=== PATIENT | female | born 1955 | race Caucasian/White ===

== ENCOUNTER 2017-12-01 16:41 | Observation (INO) | payer BC ==
--- OUTSIDE RECORDS SUMMARY | 2017-12-01 17:03 | XMS REPORT | Clinical Summary ---
:1955 Author Organization [facility] Address [address] [place] [address] Phone Care Team Providers Name Role Phone Unavailable Primary Care Provider Unavailable Allergies No Known Allergies Current Medications Prescription Sig. Disp. Refills Start Date End Date Status levothyroxine Take 75 mcg by mouth Active (SYNTHROID, daily. LEVOTHROID) 75 MCG tablet losartan-hydrochloroth Take 1 tablet by mouth Active iazide (HYZAAR) 100-25 daily. mg per tablet gabapentin (NEURONTIN) Take 300 mg by mouth 2 Active 300 MG capsule (two) times daily. esomeprazole (NEXIUM) Take 20 mg by mouth Active 20 MG capsule daily. simvastatin (ZOCOR) 40 Take 40 mg by mouth Active MG tablet nightly. amitriptyline (ELAVIL) Take 50 mg by mouth Active 50 MG tablet nightly. octreotide Inject 1 mL (100 mcg 0 01/24/2015 Active (SANDOSTATIN) 100 total) subcutaneously mcg/mL Soln 3 (three) times daily. ferrous sulfate 325 . 04/11/2017 Active (65 FE) MG tablet potassium chloride SA . 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 05/20/2017 [facility], Breast microcalcifications Encounter Bulmaro Cadena 05/20/2017 [facility], Breast microcalcifications Encounter Bulmaro Cadena 05/20/2017 [facility], Mammographic Encounter Bulmaro Cadena microcalcification 05/19/2017 Outside Orders Central Scheduling [facility], Breast microcalcifications Bulmaro Cadena (Primary Dx);Disproportion of reconstructed breast;Mammographic microcalcification after 11/30/2016 Family History Medical History Relation Name Comments Diabetes Father Hypertension Father Diabetes Mother Hypertension Mother Relation Name Status Comments Father Mother Social History Tobacco Use Types Packs/Day Years Used Date Former Smoker Cigarettes 1 25 Quit: 08/31/2005 Smokeless Tobacco: Former User Tobacco Cessation: Counseling Given: No Alcohol Use Drinks/Week oz/Week Comments No Sex Assigned at Date Recorded Not on file Last Filed Vital Signs Vital Sign Reading Time Taken Blood Pressure 151/74 05/20/2017 12:00 PM REED FIXER Pulse 85 05/20/2017 12:00 PM REED FIXER Temperature 36.7 C (98 F) 05/20/2017 12:00 PM REED FIXER Respiratory Rate 16 05/20/2017 12:00 PM REED FIXER Oxygen Saturation 98% 05/20/2017 12:00 PM REED FIXER Inhaled Oxygen Concentration - - Weight 95.3 kg (210 lb) 05/20/2017 9:00 AM REED FIXER Height 160 cm (5' 3") 05/20/2017 9:00 AM REED FIXER Body Mass Index 37.2 05/20/2017 9:00 AM REED FIXER Plan of Treatment Not on file Results Tissue Exam (05/20/2017 4:40 PM) Component Value Ref Range Case Report Surgical Pathology Report Case: [id number] Authorizing Provider:Olivier Tapia MDCollected: 05/20/2017 1640 [facility]2017 1629 Pathologist: Sabi Zuñiga MD Specimens: A) - Breast, Right, RIGHT 6 O'CLOCK BREAST CALIFICATIONS B) - Breast, Left Upper Outer, LEFT UPPER OUTER BREAST MAN WITH CALIFICATIONS DIAGNOSIS A. 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 BREAST, LEFT, UPPER OUTER QUADRANT MASS WITH CALCIFICATION, STEREOTACTIC BIOPSY: - APOCRINE METAPLASIA - COLUMNAR CELL CHANGES - USUAL DUCTAL HYPERPLASIA - SCLEROSING ADENOSIS - BENIGN BREAST TISSUE WITH ASSOCIATED CALCIFICATIONS Signing Pathologist Direct Phone Line: [phone] COMMENT Multiple levels (32 levels) have been performed to evaluate the biopsies. In the sections examined from both specimens, no carcinoma is identified. CPT Code(s) 82452 X2 CLINICAL HISTORY Right 6 o'clock breast calcifications, left upper breast mass with calcifications SPECIMEN SOURCE A. Right 6 o'clock breast calcifications biopsy. B. Left upper outer breast mass with calcifications biopsy GROSS DESCRIPTION The specimen is received in two containers all labeled with the patient's information and "site". Specimen A: Received in formalin labeled "right 6 o'clock breast calcifications" are multiple chew-white to yellow-rivera cores of soft tissue ranging in length from 0.6 cm to 2.0 cm. The specimen is inked blue and entirely submitted in cassettes A1-A2. Specimen B: Received in formalin labeled "left upper outer breast mass with calcifications" are multiple chew-white to yellow-rivera cores of soft tissue ranging in length from 0.3 cm to 2.0 cm. The specim en is inked blue and entirely submitted in cassettes B1-B2. DB/ew MICROSCOPIC DESCRIPTION A-B. Performed. Specimen Performing Laboratory Tissue - Breast, Left Upper Outer [address] [address] MM Stereotactic breast biopsy left (05/20/2017 12:30 PM) Specimen Performing Laboratory [facility] Narrative Addendum Begins AMENDMENT: 06/02/2017 Olivier Tapia M.D. Pathology results are now available and demonstrate sclerosing adenosis. This is concordant with the imaging findings. Addendum Ends #[id number] - MM, STEREOTACTIC BIOPSY, BREAST, LEFT STEREOTACTIC GUIDED BIOPSY LEFT BREAST WITH MARKING DEVICE INSERTED AND POST DIGITAL MAMMOGRAPHIC IMAGING AND RADIOGRAPHIC SPECIMEN IMAGIN05/20/2017 PATIENT CONSENT: The procedure, risks, benefits and alternatives were discussed with the patient. Informed consent was obtained. A stereotactic guided biopsy was performed for the asymmetry with calcifications located in the left breast at 1 o'clock middle to posterior depth.The skin was prepped in the usual manner.Local anesthetic was administered to the access site.A skin bravo was made in the breast.The abnormality was approached from the craniocaudal aspect using a prone table.A 9 gauge biopsy needle was placed adjacent to the abnormality under computer guidance and confirmatory stereotactic mammography images were obtained to document needle placement.Once the needle was documented to be in the correct location, multiple specimens were obtained using [employer] device. A clip was inserted into the biopsy cavity.Post procedure digital mammographic imaging demonstrates the clip at the targeted area.The specimens were sent to the laboratory for pathological analysis. IMPRESSION: STEREOTACTIC GUIDED BIOPSY Stereotactic guided biopsy of the asymmetry in the left breast at 1 o'clock middle to posterior depth was successful with no apparent post procedure complications.The imaged specimens include the calcification. Olivier Tapia M.D. pth/:05/20/2017 14:16:43 Attending Technologist: Marisol Ayala RT(R)(M), [facility] Note Specialist: Geovanna Garcia RT(R)(M), [facility] [id number] Procedure Note Interface, External Ris In - 06/02/2017 3:12 PM CDT Addendum Begins AMENDMENT: 06/02/2017 Olivier Tapia M.D. Pathology results are now available and demonstrate sclerosing adenosis. This is concordant with the imaging findings. Addendum Ends #[id number] - MM, STEREOTACTIC BIOPSY, BREAST, LEFT STEREOTACTIC GUIDED BIOPSY LEFT BREAST WITH MARKING DEVICE INSERTED AND POST DIGITAL MAMMOGRAPHIC IMAGING AND RADIOGRAPHIC SPECIMEN IMAGIN05/20/2017 PATIENT CONSENT: The procedure, risks, benefits and alternatives were discussed with the patient. Informed consent was obtained. A stereotactic guided biopsy was performed for the asymmetry with calcifications located in the left breast at 1 o'clock middle to posterior depth. The skin was prepped in the usual manner. Local anesthetic was administered to the access site. A skin bravo was made in the breast. The abnormality was approached from the craniocaudal aspect using a prone table. A 9 gauge biopsy needle was placed adjacent to the abnormality under computer guidance and confirmatory stereotactic mammography images were obtained to document needle placement. Once the needle was documented to be in the correct location, multiple specimens were obtained using [employer] EVIVA device. A clip was inserted into the biopsy cavity. Post procedure digital mammographic imaging demonstrates the clip at the targeted area. The specimens were sent to the laboratory for pathological analysis. IMPRESSION: STEREOTACTIC GUIDED BIOPSY Stereotactic guided biopsy of the asymmetry in the left breast at 1 o'clock middle to posterior depth was successful with no apparent post procedure complications. The imaged specimens include the calcification. Olivier Tapia M.D. pth/:05/20/2017 14:16:43 Attending Technologist: Marisol BELLE(R)(M), [facility] Note Specialist: Geovanna BELLE(R)(M), [facility] [id number] Breast Specimen Radiograph Left (05/20/2017 12:30 PM) Specimen Performing Laboratory [facility] Narrative #[id number] - MM, MAMMO, SPECIMEN, RADIOGRAPH, LEFT SPECIMEN LEFT BREAST: 05/20/2017 Multiple stereotactic guided biopsy specimens were imaged for the mass with calcifications located in the left breast at 1 o'clock middle to posterior depth. IMPRESSION: SPECIMEN The imaged specimens include the calcification. Olivier Tapia M.D. pth/:05/20/2017 14:17:35 Attending Technologist: Marisol BELLE(R)(Sindy), [facility] Note Specialist: Geovanna BELLE(R)(M), [facility] [id number] Procedure Note Interface, External Ris In - 05/20/2017 3:07 PM REED FIXER #[id number] - MM, MAMMO, SPECIMEN, RADIOGRAPH, LEFT SPECIMEN LEFT BREAST: 05/20/2017 Multiple stereotactic guided biopsy specimens were imaged for the mass with calcifications located in the left breast at 1 o'clock middle to posterior depth. IMPRESSION: SPECIMEN The imaged specimens include the calcification. Olivier Tapia M.D. pth/:05/20/2017 14:17:35 Attending Technologist: Marisol BELLE(R)(M), [facility] Note Specialist: Geovanna Garcia RT(R)(M), [facility] [id number] , DIGITAL, UNILATERAL, CONFER ROSAS, MAMMO, LEFT (05/20/2017 12:30 PM) Specimen Performing Laboratory [facility] Narrative #[id number] - MM, DIGITAL, UNILATERAL, CONFER ROSAS, MAMMO, LEFT INCLUDING CAD UNILATERAL LEFT DIGITAL PROBLEM SOLVING MAMMOGRAM POST-PROCEDURE IMAGING FOR MARKER PLACEMENT: 05/20/2017 There are scattered fibroglandular elements in the left breast that could obscure a lesion on mammography. The post procedure mammogram was performed on a separate mammography unit. A clip is placed at the biopsy site. IMPRESSION: POST PROCEDURE MAMMOGRAM FOR MARKER PLACEMENT Await pathology results. Olivier Tapia M.D. pth/:05/20/2017 14:12:38 Attending Technologist: Marisol Ayala RT(R)(M), [facility] Note Specialist: Geovanna BELLE(R)(M), [facility] Mammogram BI-RADS: Post-procedure mammogram for marker placement [id number] Procedure Note Interface, External Ris In - 05/20/2017 3:07 PM REED FIXER #[id number] - MM, DIGITAL, UNILATERAL, CONFER ROSAS, MAMMO, LEFT INCLUDING CAD UNILATERAL LEFT DIGITAL PROBLEM SOLVING MAMMOGRAM POST-PROCEDURE IMAGING FOR MARKER PLACEMENT: 05/20/2017 There are scattered fibroglandular elements in the left breast that could obscure a lesion on mammography. The post procedure mammogram was performed on a separate mammography unit. A clip is placed at the biopsy site. IMPRESSION: POST PROCEDURE MAMMOGRAM FOR MARKER PLACEMENT Await pathology results. Olivier Tapia M.D. pth/:05/20/2017 14:12:38 Attending Technologist: Marisol Ayala RT(R)(Sindy), [facility] Note Specialist: Geovanna BELLE(R)(Sindy), [facility] Mammogram BI-RADS: Post-procedure mammogram for marker placement [id number] Stereotactic breast biopsy right (05/20/2017 11:45 AM) Specimen Performing Laboratory [facility] Narrative Addendum Begins AMENDMENT: 06/02/2017 Olivier Tapia M.D. Pathology results are now available and demonstrate intraductal papilloma with atypia. Addendum Ends #[id number] - MM, STEREOTACTIC BIOPSY, BREAST, RIGHT STEREOTACTIC GUIDED BIOPSY RIGHT BREAST WITH MARKING DEVICE INSERTED AND POST DIGITAL MAMMOGRAPHIC IMAGING AND RADIOGRAPHIC SPECIMEN IMAGIN05/20/2017 PATIENT CONSENT: The procedure, risks, benefits and alternatives were discussed with the patient. Informed consent was obtained. A stereotactic guided biopsy was performed for the area of calcifications located in the right breast at 6 o'clock middle to posterior depth.The skin was prepped in the usual manner.Local anesthetic was administered to the access site.A skin bravo was made in the breast.The abnormality was approached from the lateral aspect using a prone table.A 9 gauge biopsy needle was placed adjacent to the abnormality under computer guidance and confirmatory stereotactic mammography images were obtained to document needle placement.Once the needle was documented to be in the correct location, multiple specimens were obtained using GlobalView Software device. A clip was inserted into the biopsy cavity.Post procedure digital mammographic imaging demonstrates the clip at the targeted area.The specimens were sent to the laboratory for pathological analysis. IMPRESSION: STEREOTACTIC GUIDED BIOPSY Stereotactic guided biopsy of the area of calcifications in the right breast at 6 o'clock middle to posterior depth was successful with no apparent post procedure complications.The imaged specimens includes the calcifications. Olivier Tapia M.D. pth/:05/20/2017 14:11:25 Attending Technologist: Marisol BELLE(R)(M), [facility] Note Specialist: Geovanna Garcia RT(R)(M), [facility] [id number] Procedure Note Interface, External Ris In - 06/02/2017 3:12 PM CDT Addendum Begins AMENDMENT: 06/02/2017 Olivier Tapia M.D. Pathology results are now available and demonstrate intraductal papilloma with atypia. Addendum Ends #[id number] - MM, STEREOTACTIC BIOPSY, BREAST, RIGHT STEREOTACTIC GUIDED BIOPSY RIGHT BREAST WITH MARKING DEVICE INSERTED AND POST DIGITAL MAMMOGRAPHIC IMAGING AND RADIOGRAPHIC SPECIMEN IMAGIN05/20/2017 PATIENT CONSENT: The procedure, risks, benefits and alternatives were discussed with the patient. Informed consent was obtained. A stereotactic guided biopsy was performed for the area of calcifications located in the right breast at 6 o'clock middle to posterior depth. The skin was prepped in the usual manner. Local anesthetic was administered to the access site. A skin bravo was made in the breast. The abnormality was approached from the lateral aspect using a prone table. A 9 gauge biopsy needle was placed adjacent to the abnormality under computer guidance and confirmatory stereotactic mammography images were obtained to document needle placement. Once the needle was documented to be in the correct location, multiple specimens were obtained using PikimalIVA device. A clip was inserted into the biopsy cavity. Post procedure digital mammographic imaging demonstrates the clip at the targeted area. The specimens were sent to the laboratory for pathological analysis. IMPRESSION: STEREOTACTIC GUIDED BIOPSY Stereotactic guided biopsy of the area of calcifications in the right breast at 6 o'clock middle to posterior depth was successful with no apparent post procedure complications. The imaged specimens includes the calcifications. Olivier Tapia M.D. pth/:05/20/2017 14:11:25 Attending Technologist: Marisol BELLE(R)(M), [facility] Note Specialist: Geovanna BELLE(R)(M), [facility] [id number] Breast Specimen Radiograph Right (05/20/2017 11:45 AM) Specimen Performing Laboratory [facility] Narrative #[id number] - MM, MAMMO, SPECIMEN, RADIOGRAPH, RIGHT SPECIMEN RIGHT BREAST: 05/20/2017 Multiple stereotactic guided biopsy specimens were imaged for the area of calcifications located in the right breast at 6 o'clock middle to posterior depth. IMPRESSION: SPECIMEN The imaged specimens includes the calcifications. Olivier Tapia M.D. pth/:05/20/2017 14:12:01 Attending Technologist: Marisol BELLE(Elliott)(Sindy), [facility] Note Specialist: Geovanna ARNOLDR)(Sindy), [facility] [id number] Procedure Note Interface, External Ris In - 05/20/2017 3:07 PM REED FIXER #[id number] - MM, MAMMO, SPECIMEN, RADIOGRAPH, RIGHT SPECIMEN RIGHT BREAST: 05/20/2017 Multiple stereotactic guided biopsy specimens were imaged for the area of calcifications located in the right breast at 6 o'clock middle to posterior depth. IMPRESSION: SPECIMEN The imaged specimens includes the calcifications. Olivier Tapia M.D. pth/:05/20/2017 14:12:01 Attending Technologist: Marisol BELLE(R)(Sindy), [facility] Note Specialist: Geovanna BELLE(R)(M), [facility] [id number] , DIGITAL, UNILATERAL, CONFER ROSAS, MAMMO, RIGHT (05/20/2017 11:45 AM) Specimen Performing Laboratory [facility] Narrative #[id number] - MM, DIGITAL, UNILATERAL, CONFER ROSAS, MAMMO, RIGHT INCLUDING CAD UNILATERAL RIGHT DIGITAL PROBLEM SOLVING MAMMOGRAM POST-PROCEDURE IMAGING FOR MARKER PLACEMENT: 05/20/2017 There are scattered fibroglandular elements in the right breast that could obscure a lesion on mammography. The post procedure mammogram was performed on a separate mammography unit. A clip is placed at the biopsy site. IMPRESSION: POST PROCEDURE MAMMOGRAM FOR MARKER PLACEMENT Await pathology results. Olivier Tapia M.D. pth/:05/20/2017 14:09:55 Attending Technologist: Marisol BELLE(R)(M), [facility] Note Specialist: Geovanna BELLE(R)(M), [facility] Mammogram BI-RADS: Post-procedure mammogram for marker placement [id number] Procedure Note Interface, External Ris In - 05/20/2017 3:07 PM REED FIXER #[id number] - MM, DIGITAL, UNILATERAL, CONFER ROSAS, MAMMO, RIGHT INCLUDING CAD UNILATERAL RIGHT DIGITAL PROBLEM SOLVING MAMMOGRAM POST-PROCEDURE IMAGING FOR MARKER PLACEMENT: 05/20/2017 There are scattered fibroglandular elements in the right breast that could obscure a lesion on mammography. The post procedure mammogram was performed on a separate mammography unit. A clip is placed at the biopsy site. IMPRESSION: POST PROCEDURE MAMMOGRAM FOR MARKER PLACEMENT Await pathology results. Olivier Tapia M.D. pth/:05/20/2017 14:09:55 Attending Technologist: Marisol Ayala RT(R)(M), [facility] Note Specialist: Geovanna BELLE(R)(M), [facility] Mammogram BI-RADS: Post-procedure mammogram for marker placement [id number] left breast (05/20/2017 10:15 AM) Specimen Performing Laboratory [facility] Narrative #[id number] - MM, U/S, BREAST, UNILATERAL, LEFT ULTRASOUND OF LEFT BREAST: 05/20/2017 Comparison is made to exam dated:05/20/2017 mammogram - [facility]. Color flow and real-time ultrasound of the left breast were performed.Chew scale images of the real-time examination were reviewed. Ultrasound of all four quadrants and the retroareolar breast was performed. The mammographically detected asymmetry with calcifications in the left upper outer breast has no sonographic correlate. IMPRESSION: SUSPICIOUS OF MALIGNANCY - FOLLOW-UP RECOMMENDED The findings and recommendations for stereotactic biopsy of left upper outer breast lesion have been discussed with the patient. Olivier Tapia M.D. pth/:05/20/2017 14:40:22 Note Specialist: Sheela Michael, [facility] Ultrasound BI-RADS: 4b Suspicious abnormality - intermediate suspicion of malignancy [id number] Procedure Note Interface, External Ris In - 05/20/2017 3:07 PM REED FIXER #[id number] - MM, U/S, BREAST, UNILATERAL, LEFT ULTRASOUND OF LEFT BREAST: 05/20/2017 Comparison is made to exam dated: 05/20/2017 mammogram - [facility]. Color flow and real-time ultrasound of the left breast were performed. Chew scale images of the real-time examination were reviewed. Ultrasound of all four quadrants and the retroareolar breast was performed. The mammographically detected asymmetry with calcifications in the left upper outer breast has no sonographic correlate. IMPRESSION: SUSPICIOUS OF MALIGNANCY - FOLLOW-UP RECOMMENDED The findings and recommendations for stereotactic biopsy of left upper outer breast lesion have been discussed with the patient. Olivier Tapia M.D. pth/:05/20/2017 14:40:22 Note Specialist: Sheela Velasco.S., [facility] Ultrasound BI-RADS: 4b Suspicious abnormality - intermediate suspicion of malignancy [id number] digital mammo diagnostic left (05/20/2017 10:00 AM) Specimen Performing Laboratory [facility] Narrative #[id number] - MM, DIGITAL, MAMMO, DIAGNOSTIC, LEFT INCLUDING CAD UNILATERAL LEFT DIGITAL DIAGNOSTIC MAMMOGRAM WITH CAD: 05/20/2017 Comparison is made to exam dated:06/23/2011 mammogram. There are scattered fibroglandular elements in the left breast that could obscure a lesion on mammography. Current study was also evaluated with a Computer Aided Detection (CAD) system. There is a new 8 mm focal asymmetry with calcifications in the left breast at 1 o'clock middle to posterior depth.This is seen in additional views. No other significant masses or calcifications are seen in the breast. IMPRESSION: INCOMPLETE: NEEDS ADDITIONAL IMAGING EVALUATION The new 8 mm focal asymmetry in the left breast is indeterminate.An ultrasound is recommended. Olivier Tapia M.D. pth/:05/20/2017 14:15:29 Attending Technologist: Marisol Ayala RT(R)(M), [facility] Note Specialist: Geovanna Garcia RT(R)(M), [facility] Mammogram BI-RADS: 0 Indeterminate [id number] Procedure Note Interface, External Ris In - 05/20/2017 3:07 PM REED FIXER #[id number] - MM, DIGITAL, MAMMO, DIAGNOSTIC, LEFT INCLUDING CAD UNILATERAL LEFT DIGITAL DIAGNOSTIC MAMMOGRAM WITH CAD: 05/20/2017 Comparison is made to exam dated: 06/23/2011 mammogram. There are scattered fibroglandular elements in the left breast that could obscure a lesion on mammography. Current study was also evaluated with a Computer Aided Detection (CAD) system. There is a new 8 mm focal asymmetry with calcifications in the left breast at 1 o'clock middle to posterior depth. This is seen in additional views. No other significant masses or calcifications are seen in the breast. IMPRESSION: INCOMPLETE: NEEDS ADDITIONAL IMAGING EVALUATION The new 8 mm focal asymmetry in the left breast is indeterminate. An ultrasound is recommended. Olivier Tapia M.D. pth/:05/20/2017 14:15:29 Attending Technologist: Marisol BELLE(R)(M), [facility] Note Specialist: Geovanna BELLE(R)(M), [facility] Mammogram BI-RADS: 0 Indeterminate [id number] after 11/30/2016
--- OUTSIDE RECORDS SUMMARY | 2017-12-01 17:03 | XMS REPORT ---
:1955 Author Organization [facility] Address [address] [place] [address] Care Team Providers Name Role Phone CARLOS RODGERS Unavailable Unavailable Problems This patient has no known problems. Allergies, Adverse Reactions, Alerts This patient has no known allergies or adverse reactions. Medications This patient has no known medications. Results Test Description Test Time Test Comments Text Results Atomic Results Result Comments MM, STEREOTACTIC 2017-06-02 Reason for Addendum BeginsMRN#: BIOPSY, BREAST, LEFT 13:11:00 Exam:->r92.0 [id number]: 06/02/2017 Olivier Tapia M.D. Pathology results are now available and demonstrate sclerosing adenosis.This is concordant with the imaging findings. Addendum EndsN#: [id number] - MM, STEREOTACTIC BIOPSY, BREAST, LEFTSTEREOTACTIC GUIDED BIOPSY LEFT BREAST WITH MARKING DEVICE INSERTED AND POST DIGITAL MAMMOGRAPHIC IMAGING AND RADIOGRAPHIC SPECIMEN IMAGIN05/20/2017PATIENT CONSENT: The procedure, risks, benefits and alternatives [...] correct location, multiple specimens were obtained using DailyBurn device. A clip was inserted into the biopsy cavity. Post procedure digital mammographic imaging demonstrates the clip at the targeted area. The specimens were sent to the laboratory for pathological analysis. IMPRESSION: STEREOTACTIC GUIDED BIOPSYStereotactic guided biopsy of the asymmetry in the left breast at 1 o'clock middle to posterior depth was successful with no apparent post procedure complications. The imaged specimens include the calcification. Olivier Tapia M.D. pth/:05/20/2017 14:16:43 Attending Technologist: Marisol Ayala RT(R)(M), [facility] Window Covering Sales Consultant: Geovanna Garcia RT(R)(M), [facility] [id number] , STEREOTACTIC 2017-06-02 Reason for Addendum BeginsMRN#: BIOPSY, BREAST, 13:10:00 Exam:->Microcalcifica [id number]: RIGHT tions 06/02/2017 Olivier Tapia M.D. Pathology results are now available and demonstrate intraductal papilloma with atypia. Addendum EndsMRN#: [id number] - MM, STEREOTACTIC BIOPSY, BREAST, RIGHTSTEREOTACTIC GUIDED BIOPSY RIGHT BREAST WITH MARKING DEVICE INSERTED AND POST DIGITAL MAMMOGRAPHIC IMAGING AND RADIOGRAPHIC SPECIMEN IMAGIN05/20/2017PATIENT CONSENT: The procedure, risks, benefits and alternatives [...] correct location, multiple specimens were obtained using DailyBurn device. A clip was inserted into the biopsy cavity. Post procedure digital mammographic imaging demonstrates the clip at the targeted area. The specimens were sent to the laboratory for pathological analysis. IMPRESSION: STEREOTACTIC GUIDED BIOPSYStereotactic guided biopsy of the area of calcifications in the right breast at 6 o'clock middle to posterior depth was successful with no apparent post procedure complications. The imaged specimens includes the calcifications. Olivier Tapia M.D. pth/:05/20/2017 14:11:25 Attending Technologist: Marisol Ayala RT(R)(M), [facility] Window Covering Sales Consultant: Geovanna Garcia RT(R)(M), [facility] [id number] UE EXAM 2017-05-25 Surgical Pathology Report 11:08:00 Case: [id number] Authorizing Provider: Olivier Tapia MD Collected: 05/20/2017 1640 Ordering Location: [facility] Received: 05/20/2017 6339 Pathologist: Sabi Zuñiga MD Specimens: A) - Breast, Right, RIGHT 6 O'CLOCK BREAST CALIFICATIONS B) - Breast, Left Upper Outer, LEFT UPPER OUTER BREAST MAN WITH CALIFICATIONS A. 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 BREAST, LEFT, UPPER OUTER QUADRANT MASS WITH CALCIFICATION, STEREOTACTIC BIOPSY: - APOCRINE METAPLASIA - COLUMNAR CELL CHANGES - USUAL DUCTAL HYPERPLASIA - SCLEROSING ADENOSIS - BENIGN BREAST TISSUE WITH ASSOCIATED CALCIFICATIONS Signing Pathologist Direct Phone Line: [phone] y signed by Sabi Zuñiga MD on 05/25/2017 at 11:08 AMMultiple levels (32 levels) have been performed to evaluate the biopsies. In the sections examined from both specimens, no carcinoma is identified.[id number] 6 o'clock breast calcifications, left upper breast mass with calcifications A. Right 6 o'clock breast calcifications biopsy. B. Left upper outer breast mass with calcifications biopsyThe specimen is received in two containers all labeled with the patient's information and "site".Specimen A: Received in formalin labeled "right 6 o'clock breast calcifications" are multiple chew-white to yellow-rivera cores of soft tissue ranging in length from 0.6 cm to 2.0 cm. The specimen is inked blue and entirely submitted in cassettes A1-A2.Specimen B: Received in formalin labeled "left upper outer breast mass with calcifications" are multiple chew-white to yellow-rivera cores of soft tissue ranging in length from 0.3 cm to 2.0 cm. The specimen is inked blue and entirely submitted in cassettes B1-B2. DB/ew A-B. Performed. MM, U/S, BREAST, 2017-05-20 Reason for #[id number] - UNILATERAL, LEFT 14:40:00 Exam:->n65.1 MM, U/S, BREAST, UNILATERAL, LEFTULTRASOUND OF LEFT BREAST: 05/20/2017Comparison is made to exam dated: 05/20/2017 mammogram - [facility]. Color flow and real-time ultrasound of the left breast were performed. Chew scale images of the real-time examination were reviewed. Ultrasound of all four quadrants and the retroareolar breast was performed. The mammographically detected asymmetry with calcifications in the left upper outer breast has no sonographic correlate.IMPRESSION: SUSPICIOUS OF MALIGNANCY - FOLLOW-UP RECOMMENDEDThe findings and recommendations for stereotactic biopsy of left upper outer breast lesion have been discussed with the patient. Olivier Tapia M.D. pth/:05/20/2017 14:40:22 Window Covering Sales Consultant: Sheela Michael, [facility] Ultrasound BI-RADS: 4b Suspicious abnormality - intermediate suspicion of malignancy [id number] , MAMMO, SPECIMEN, 2017-05-20 Reason for #[id number] - RADIOGRAPH, LEFT 14:17:00 exam:->left breast MM, MAMMO, SPECIMEN, asymmetry RADIOGRAPH, LEFTSPECIMEN LEFT BREAST: 05/20/2017Multiple stereotactic guided biopsy specimens were imaged for the mass with calcifications located in the left breast at 1 o'clock middle to posterior depth. IMPRESSION: SPECIMENThe imaged specimens include the calcification. Olivier Tapia M.D. pth/:05/20/2017 14:17:35 Attending Technologist: Marisol VALLECILLO)(Sindy), [facility] Window Covering Sales Consultant: Geovanna BELLE(Elliott)(Sindy), [facility] [id number] , DIGITAL, MAMMO, 2017-05-20 Reason for #[id number] - DIAGNOSTIC, LEFT 14:15:00 Exam:->r92.8 MM, DIGITAL, MAMMO, INCLUDING CAD DIAGNOSTIC, LEFT INCLUDING CADUNILATERAL LEFT DIGITAL DIAGNOSTIC MAMMOGRAM WITH CAD: 05/20/2017Comparison is made to exam dated: 06/23/2011 mammogram. [...] the breast. IMPRESSION: INCOMPLETE: NEEDS ADDITIONAL IMAGING EVALUATIONThe new 8 mm focal asymmetry in the left breast is indeterminate. An ultrasound is recommended. Olivier Tapia M.D. pth/:05/20/2017 14:15:29 Attending Technologist: Marisol BELLE(R)(Sindy), [facility] Window Covering Sales Consultant: Geovanna ARNOLDR)(M), [facility] Mammogram BI-RADS: 0 Indeterminate [id number] , MAMMO, SPECIMEN, 2017-05-20 Reason for #[id number] - RADIOGRAPH, RIGHT 14:12:00 exam:->Right breast MM, MAMMO, SPECIMEN, calcifications RADIOGRAPH, RIGHTSPECIMEN RIGHT BREAST: 05/20/2017Multiple stereotactic guided biopsy specimens were imaged for the area of calcifications located in the right breast at 6 o'clock middle to posterior depth. IMPRESSION: SPECIMENThe imaged specimens includes the calcifications. Olivier Tapia M.D. pth/:05/20/2017 14:12:01 Attending Technologist: Marisol VALLECILLO)Mireille), [facility] Window Covering Sales Consultant: Geovanna VALLECILLO)Mireille), [facility] [id number] , DIGITAL, 2017-05-20 left breast #[id number] - UNILATERAL, CONFER 14:12:00 density/asymmetry MM, DIGITAL, UNILATERAL, ROSAS, MAMMO, LEFT CONFER ROSAS, MAMMO, LEFT INCLUDING CAD INCLUDING CADUNILATERAL LEFT DIGITAL PROBLEM SOLVING MAMMOGRAM POST-PROCEDURE IMAGING FOR MARKER PLACEMENT: 05/20/2017 There are scattered fibroglandular elements in the left breast that could obscure a lesion on mammography. The post procedure mammogram was performed on a separate mammography unit.A clip is placed at the biopsy site. IMPRESSION: POST PROCEDURE MAMMOGRAM FOR MARKER PLACEMENTAwait pathology results. Olivier Tapia M.D. pth/:05/20/2017 14:12:38 Attending Technologist: Marisol ARNOLDR)(Sindy), [facility] Window Covering Sales Consultant: Geovanna ROBERTSON (R)), [facility] Mammogram BI-RADS: Post-procedure mammogram for marker placement [id number] , DIGITAL, 2017-05-20 Right breast #[id number] - UNILATERAL, CONFER 14:09:00 calcifications MM, DIGITAL, UNILATERAL, ROSAS, MAMMO, RIGHT CONFER ROSAS, MAMMO, RIGHT INCLUDING CAD INCLUDING CADUNILATERAL RIGHT DIGITAL PROBLEM SOLVING MAMMOGRAM POST-PROCEDURE IMAGING FOR MARKER PLACEMENT: 05/20/2017 There are scattered fibroglandular elements in the right breast that could obscure a lesion on mammography. The post procedure mammogram was performed on a separate mammography unit.A clip is placed at the biopsy site. IMPRESSION: POST PROCEDURE MAMMOGRAM FOR MARKER PLACEMENTAwait pathology results. Olivier Tapia M.D. pth/:05/20/2017 14:09:55 Attending Technologist: Marisol Ayala RT(R)(M), [facility] Window Covering Sales Consultant: Geovanna BELLE(R)(M), [facility] Mammogram BI-RADS: Post-procedure mammogram for marker placement [id number]
--- OUTSIDE RECORDS SUMMARY | 2017-12-01 17:03 | XMS REPORT | Clinical Summary ---
:1955 Author Organization [facility] Address [address] [place] [address] Care Team Providers Name Role Phone Asked, No Pcp Primary Care Provider Unavailable Allergies No Known Allergies Current Medications Prescription Sig. Disp. Refills Start Date End Date Status ferrous sulfate 325 TAKE ONE 90 tablet 3 02/18/2016 Active (65 FE) MG tablet TABLET BY MOUTH THREE TIMES A DAY WITH MEALS FOR 30 DAYS levothyroxine Take 75 mcg by Active (SYNTHROID, LEVOXYL) mouth every 75 mcg tablet morning. gabapentin Take 300 mg by Active (NEURONTIN) 300 mg mouth 2 (two) capsule times a day. losartan-hydrochloro Take 1 tablet Active thiazide (HYZAAR) by mouth 100-12.5 mg per daily. tablet esomeprazole Take 40 mg by Active (NexIUM) 40 MG mouth daily capsule before breakfast. potassium chloride Take 20 mEq by Active (KLOR-CON) 20 mEq mouth 2 (two) packet times a day. amitriptyline Take 100 mg by Active (ELAVIL) 50 MG mouth nightly. tablet lanreotide Inject 0.5 mL 1 Syringe 12 11/09/2017 Active (SOMATULINE DEPOT) (120 mg total) 9 120 mg/0.5 mL under the skin syringeIndications: every 28 days Intestinal for 12 doses. angiodysplasia with bleeding, Iron deficiency anemia due to chronic blood loss octreotide Inject 30 mg 1 kit 11 05/19/2016 Discontinued (SandoSTATIN LAR) 30 into the 8 mg injection shoulder, thigh, or buttocks every 28 days. lanreotide Inject 0.5 mL 1 Syringe 12 03/31/2017 Discontinued (SOMATULINE DEPOT) (120 mg total) 8 120 mg/0.5 mL under the skin syringe every 28 days for 12 doses. octreotide Inject 30 mg 1 kit 11 11/10/2017 (SandoSTATIN LAR into the 8 [place]) 30 mg shoulder, injectionIndications thigh, or : Intestinal buttocks every angiodysplasia with 28 days for 1 bleeding dose. 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 Iron deficiency anemia due to chronic blood loss 05/17/2016 Encounters Date Type Specialty Care Team Description 11/24/2017 Telephone Oncology Neil Weiss MD 11/22/2017 Telephone Oncology Neil Weiss MD 11/10/2017 Orders Only Oncology Mita Anderson RN Intestinal angiodysplasia with bleeding (Primary Dx) 11/09/2017 Telephone Oncology Neil Weiss MD 11/09/2017 Orders Only Oncology Mita Anderson RN Intestinal angiodysplasia with bleeding (Primary Dx); Iron deficiency anemia due to chronic blood loss 10/15/2017 Orders Only Oncology Neil Weiss MD 04/01/2017 Telephone Oncology Neil Weiss MD 03/31/2017 Orders Only Oncology Carlos Ansari RN 03/31/2017 Telephone Oncology Neil Weiss MD 02/12/2017 Orders Only Oncology Neil Weiss MD 01/01/2017 Orders Only Oncology Neil Weiss MD after 11/30/2016 Social History Tobacco Use Types Packs/Day Years Used Date Never Smoker Alcohol Use Drinks/Week oz/Week Comments Yes occ Sex Assigned at Date Recorded Not on file Last Filed Vital Signs Not on file Plan of Treatment Health Maintenance Due Date Last Done Comments CERVICAL CANCER SCREENING 02/20/1977 BREAST CANCER SCREENING 02/20/2006 COLON CANCER SCREENING 02/20/2006 SHINGRIX VACCINE (#1) 02/20/2006 ZOSTER VACCINE 2016 INFLUENZA VACCINE 10/12/2017 Procedures Procedure Name Priority Date/Time Associated Comments Diagnosis CBC WITH PLATELET AND Routine 10/15/2017 12:00 Results for this DIFFERENTIAL AM CDT procedure are in the results section. POTASSIUM LEVEL Routine 10/15/2017 12:00 Results for this AM CDT procedure are in the results section. CBC WITH PLATELET AND Routine 02/12/2017 11:01 Results for this DIFFERENTIAL AM SENIOR VICE PRESIDENT & GENERAL COUNSEL procedure are in the results section. POTASSIUM LEVEL Routine 02/12/2017 11:01 Results for this AM SENIOR VICE PRESIDENT & GENERAL COUNSEL procedure are in the results section. CBC WITH PLATELET AND Routine 01/01/2017 10:29 Results for this DIFFERENTIAL AM CDT procedure are in the results section. POTASSIUM LEVEL Routine 01/01/2017 10:29 Results for this AM CDT procedure are in the results section. after 11/30/2016 Results CBC with platelet and differential (10/15/2017)Only the most recent of3 resultswithin the time period is included. WBC 6.5 3.8 - 10.8 Thousand/uL [facility] [place] RBC 4.08 3.80 - 5.10 Million/uL [facility] [place] HGB 12.1 11.7 - 15.5 g/dL [facility] [place] HCT 36.5 35.0 - 45.0 % [facility] [place] MCV 89.5 80.0 - 100.0 fL [facility] [place] MCH 29.7 27.0 - 33.0 pg [facility] [place] MCHC 33.2 32.0 - 36.0 g/dL [facility] [place] RDW 13.4 11.0 - 15.0 % [facility] [place] Platelet count 258 140 - 400 Thousand/uL [facility] [place] MPV 9.7 7.5 - 12.5 fL [facility] [place] Neutrophils, absolute 4,804 1,500 - 7,800 cells/uL [facility] [place] Lymphocytes, absolute 1,125 850 - 3,900 cells/uL [facility] [place] Monocytes, absolute 384 200 - 950 cells/uL [facility] [place] Eosinophils, absolute 130 15 - 500 cells/uL [facility] [place] Basophils, absolute 59 0 - 200 cells/uL [facility] [place] Neutrophils 73.9 % [facility] [place] Lymphocytes 17.3 % [facility] [place] Monocytes 5.9 % [facility] [place] Eosinophils 2.0 % [facility] [place] Basophils + RC 0.9 % [facility] [place] Narrative Performed At FASTING:YES QUEST FASTING: YES Other Results Text Performing Organization Information: Site ID: [id number] Name: [facility] Address: [address] [place] [id number] Director: Olena Bach Performing Organization Address City/State/Zipcode Phone Number [employer] [address] [address] Potassium level (10/15/2017)Only the most recent of3 resultswithin the time period is included. Potassium 4.3 3.5 - 5.3 mmol/L [facility] [place] Narrative Performed At FASTING:YES QUEST FASTING: YES Other Results Text Performing Organization Information: Site ID: [id number] Name: [facility] Address: [address] [place] [phone] Director: Olena Bach Performing Organization Address City/State/Zipcode Phone Number [employer] [place] [address] [place] [phone] after 11/30/2016 Insurance Payer Benefit Plan / Group Subscriber ID Type Phone Address BCBS BCBS CHOICE PPO/FEDERAL EMPL PPO xxxxxxxxxxxxxxx PPO Home: [address] [place], [place] [phone] [place] [phone]
[2017-12-01 17:38] VITALS: BMI 37.9
[2017-12-01] MEDS ORDERED: NA CHLORIDE 0.9% 250 ML ONE (17:56)
[2017-12-01] MEDS ORDERED: OCTREOTIDE ACETATE 100 MCG/ML IV ONE (18:38)
[2017-12-01] MEDS ORDERED: ATORVASTATIN 20 MG TAB PO SCH (21:00)
[2017-12-01] MEDS ORDERED: GABAPENTIN 300 MG CAP PO SCH (21:00)
[2017-12-01] MEDS ORDERED: AMITRIPTYLINE 50 MG TAB PO SCH (21:00)
[2017-12-02 01:32] VITALS: O2SAT 91
--- NOTE | 2017-12-02 05:20 | HP ---
Date of Admission: 12/01/2017 Chief Complaint: Difficulty breathing with exertion. History Of Present Illness: A 62-year-old female, who had multiple episodes of small-bowel bleeding, and who was on Sandostatin in the past, has not been able to take Sandostatin because of insurance i ssues. She came to the office because she could not walk for more than 20 yards without shortness of breath. She has history of aortic stenosis. She has hypertension and other medical problems that w ill be listed below. The patient also admits to having dark stools. She also admits to having a hem oglobin around 13 g. Outpatient CBC was done. Hemoglobin was 9 g. In view of her symptoms and almo st 4 g drop of hemoglobin, aortic stenosis, and associated problems, a decision was taken to transfus e her and also give 1 dose of Sandostatin IV to prevent this established small-bowel bleeding. The p atient had multiple transfusions in the past for the same reason. The patient denied any fever, chills, rigors. 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 The patient had multiple GI workup in the past. Past Surgical History: Other surgical history includes history of foot surgery, hysterectomy, and tu bal ligation. Family History: Positive for asthma allergies, heart disease, hypertension, diabetes. Personal History: Nonsmoker. Allergies: TO ASPIRIN, IBUPROFEN. Review of Systems: No history of fever, chills, or rigors. Physical Examination: General: Revealed 62-year-old female, pale looking. HEENT: Otherwise negative. Neck: Supple. JVD negative. Chest: Clear. Heart: Regular with systolic murmur. Abdomen: Soft. No palpable mass. Extremities: No edema. Laboratory Data: Outpatient CBC showed a hemoglobin of 9 g, normal white count. Assessment: 1.Acute on chronic gastrointestinal bleeding. 2.Aortic stenosis. 3.Hypertension. 4.Hyperlipidemia. 5.Hypothyroidism. 6.Neuropathy. Plan: As mentioned earlier, even though her hemoglobin is 9 g, the decision to transfuse was made ba sed on her past medical history as well as multiple medical problems as well as her symptoms. The pa tient will receive 2 units of packed RBC and 1 dose of Sandostatin IV. The patient will be discharge d, if the hemoglobin is maintained around 10 g post transfusion. RRK/MODL Voice ID: [id number]
[2017-12-02] MEDS ORDERED: LEVOTHYROXINE SOD 0.075 MG TAB PO SCH (06:00)
[2017-12-02 06:01] LABS: Hematocrit 32.1 % (36.0-45.0)
[2017-12-02] MEDS ORDERED: PANTOPRAZOLE 40MG TABLET PO SCH (06:30)
[2017-12-02] MEDS ORDERED: FERROUS SULFATE 325 MG TAB PO SCH (09:00)
[2017-12-02] MEDS ORDERED: AMLODIPINE 10 MG TAB PO SCH (09:00)
[2017-12-02] MEDS ORDERED: hydroCHLOROthiazide 25 MG TAB PO SCH (09:00)
[2017-12-02] MEDS ORDERED: LOSARTAN POTASSIUM 50 MG TABLET PO SCH (09:00)
[2017-12-02 10:58] VITALS: BP 114/61; TEMP 98.2
== END 2017-12-02 09:44 | disposition home or self-care (01) ==
LOC: 2ND 17:00
PROVIDERS: ADMIT Internal Medicine; ATTEND Internal Medicine
PROC: 30233N1 Transfusion of Nonautologous Red Blood Cells into Peripheral Vein, Percutaneous Approach (ICD-10-PCS; principal; 2017-12-01)
DX: K92.2 Gastrointestinal hemorrhage, unspecified (principal); I35.0 Nonrheumatic aortic (valve) stenosis; I10 Essential (primary) hypertension; E78.5 Hyperlipidemia, unspecified; E03.9 Hypothyroidism, unspecified; G62.9 Polyneuropathy, unspecified; Z88.6 Allergy status to analgesic agent
CPT/HCPCS: 36415; 85014; 85018; 86850; 86900; 86901; G0378; J2354; P9016

== ENCOUNTER 2018-01-12 07:21 | Observation (INO) | payer BC ==
--- OUTSIDE RECORDS SUMMARY | 2018-01-12 08:17 | XMS REPORT | Clinical Summary ---
:1955 Author Organization [facility] Address [address] [place] [address] Care Team Providers Name Role Phone Asked, [...] tablet lanreotide Inject 0.5 mL 1 Syringe 11/09/2017 Active (SOMATULINE DEPOT) (120 mg total) [...] Encounters Date Type Specialty Care Team Description 12/08/2017 Telephone Oncology Mita Anderson RN 12/07/2017 Telephone Oncology Neil Weiss MD 12/05/2017 Telephone Oncology Mita Anderson RN 11/24/2017 Telephone Oncology Neil Weiss MD 11/22/2017 [...] 02/12/2017 Orders Only Oncology Neil Weiss MD after 01/11/2017 Social History Tobacco Use Types Packs/Day Years Used Date Never Smoker Alcohol Use Drinks/Week oz/Week Comments Yes occ Sex Assigned at Date Recorded Not on file Last Filed Vital Signs Not on file Plan of Treatment Date Type Specialty Care Team Description 02/20/2018 Office Visit Oncology Neil Weiss MD [address] [place] [phone] Health Maintenance Due Date Last Done Comments [...] 02/12/2017 11:01 Results for this DIFFERENTIAL AM TRAVEL SERVICES PROFESSIONAL procedure are in the results section. POTASSIUM LEVEL Routine 02/12/2017 11:01 Results for this AM TRAVEL SERVICES PROFESSIONAL procedure are in the results section. after 01/11/2017 Results CBC with platelet and differential (10/15/2017)Only the most recent of2 resultswithin the time period is included. WBC 6.5 3.8 - 10.8 Thousand/uL [facility] [place] RBC 4.08 3.80 - 5.10 Million/uL [facility] [place] HGB 12.1 11.7 - 15.5 g/dL [facility] [place] HCT 36.5 35.0 - 45.0 % [facility] [place] MCV 89.5 80.0 - 100.0 fL [facility] [place] MCH 29.7 27.0 - 33.0 pg [facility] [place] MCHC 33.2 32.0 - 36.0 g/dL [facility] [place] RDW 13.4 11.0 - 15.0 % [facility] [place] Platelet count 258 140 - 400 Thousand/uL [facility] [place] MPV 9.7 7.5 - 12.5 fL [facility] [place] Neutrophils, absolute 4,804 1,500 - 7,800 cells/uL [facility] [place] Lymphocytes, absolute 1,125 850 - 3,900 cells/uL [facility] [place] Monocytes, absolute 384 200 - 950 cells/uL [facility] [place] Eosinophils, absolute 130 15 - 500 cells/uL [facility] [place] Basophils, absolute 59 0 - 200 cells/uL [facility] [place] Neutrophils 73.9 % [facility] [place] Lymphocytes 17.3 % Stream[facility] [place] Monocytes 5.9 % [facility] [place] Eosinophils 2.0 % Stream[facility] [place] Basophils + RC 0.9 % [facility] [place] Narrative Performed At FASTING:YES [facility]ST FASTING: YES Other Results Text Performing Organization Information: Site ID: [id number] Name: [facility] Address: [address] [place] [id number] Director: Olena Bach Performing Organization Address City/State/Zipcode Phone Number [facility] [place] [address] [place] [address] Potassium level (10/15/2017)Only the most recent of2 resultswithin the time period is included. Potassium 4.3 3.5 - 5.3 mmol/L [facility] [place] Narrative Performed At FASTING:YES QUEST FASTING: YES Other Results Text Performing Organization Information: Site ID: [id number] Name: [facility] Address: [address] [place] [phone] Director: Olena Bach Performing Organization Address [facility] Phone Number [facility] [place] [address] [place] [address] after 01/11/2017 Insurance Payer Benefit Plan / Group Subscriber ID Type Phone Address BCBS BCBS CHOICE PPO/FEDERAL EMPL PPO xxxxxxxxxxxxxxx PPO [phone] [place] [phone]
--- OUTSIDE RECORDS SUMMARY | 2018-01-12 08:17 | XMS REPORT ---
:1955 [facility] Address [address] [place] [address] Care Team Providers Name Role Phone CARLOS RODGERS Unavailable Unavailable Problems This patient has no known problems. Allergies, Adverse Reactions, Alerts This patient has no known allergies or adverse reactions. Medications This patient has no known medications. Results Test Description Test Time Test Comments Text Results Atomic Results Result Comments MM, STEREOTACTIC 2017-06-02 Reason for Addendum BeginsMRN#: BIOPSY, BREAST, LEFT 13:11:00 Exam:->r92.0 [id number]: 06/02/2017 Olivier Tapia M.D. Pathology results are now available and demonstrate sclerosing adenosis.This is concordant with the imaging findings. Addendum EndsN#: [id number] - MM, STEREOTACTIC BIOPSY, BREAST, LEFTSTEREOTACTIC GUIDED [...] correct location, multiple specimens were obtained using [employer] device. A clip was inserted into the [...] pth/:05/20/2017 14:16:43 Attending Technologist: Marisol Ayala RT(R)(M), [facility] Byproducts Supervisor: Geovanna Garcia RT(R)(M), [facility] [id number] , STEREOTACTIC 2017-06-02 Reason for Addendum BeginsMRN#: BIOPSY, BREAST, 13:10:00 Exam:->Microcalcifica [id number]: RIGHT tions 06/02/2017 Olivier Tapia M.D. Pathology results are now available and demonstrate intraductal papilloma with atypia. Addendum EndsMRN#: [id number] - MM, STEREOTACTIC BIOPSY, BREAST, RIGHTSTEREOTACTIC GUIDED [...] correct location, multiple specimens were obtained using [employer] device. A clip was inserted into the [...] pth/:05/20/2017 14:11:25 Attending Technologist: Marisol Ayala RT(R)(M), [facility] [employer] Supervisor: Geovanna Garcia RT(R)(M), [facility] [address] UE EXAM 2017-05-25 Surgical Pathology Report 11:08:00 Case: [id number] Authorizing Provider: Olivier Tapia MD Collected: 05/20/2017 1640 Ordering Location: [facility] Received: 05/20/2017 3545 Pathologist: Sabi Zuñiga MD Specimens: A) - [...] ASSOCIATED CALCIFICATIONS Signing Pathologist Direct Phone Line: [phone] y signed by Sabi Zuñiga MD on 05/25/2017 at 11:08 AMMultiple levels (32 levels) have been performed to evaluate the biopsies. In the sections examined from both specimens, no carcinoma is identified.[id number] 6 o'clock breast calcifications, left upper breast [...] Performed. MM, U/S, BREAST, 2017-05-20 Reason for #[id number] - UNILATERAL, LEFT 14:40:00 Exam:->n65.1 MM, U/S, BREAST, UNILATERAL, LEFTULTRASOUND OF LEFT BREAST: 05/20/2017Comparison is made to exam dated: 05/20/2017 mammogram - [facility]. Color flow and real-time ultrasound of [...] the patient. Olivier Tapia M.D. pth/:05/20/2017 14:40:22 Byproducts Supervisor: Sheela Michael, [facility] Ultrasound BI-RADS: 4b Suspicious abnormality - intermediate suspicion of malignancy [id number] , MAMMO, SPECIMEN, 2017-05-20 Reason for #[id number] - RADIOGRAPH, LEFT 14:17:00 exam:->left breast MM, MAMMO, SPECIMEN, asymmetry RADIOGRAPH, LEFTSPECIMEN LEFT BREAST: 05/20/2017Multiple stereotactic guided biopsy specimens were imaged for the mass with calcifications located in the left breast at 1 o'clock middle to posterior depth. IMPRESSION: SPECIMENThe imaged specimens include the calcification. Olivier Tapia M.D. pth/:05/20/2017 14:17:35 Attending Technologist: Marisol VALLECILLO)(Sindy), [facility] [employer] Supervisor: Geovanna BELLE(Elliott)(Sindy), [facility] [id number] , DIGITAL, MAMMO, 2017-05-20 Reason for #[id number] - DIAGNOSTIC, LEFT 14:15:00 Exam:->r92.8 MM, DIGITAL, [...] M.D. pth/:05/20/2017 14:15:29 Attending Technologist: Marisol BELLE(R)(Sindy), [facility] [employer] Supervisor: Geovanna ARNOLDR)(M), [facility] Mammogram BI-RADS: 0 Indeterminate [id number] , MAMMO, SPECIMEN, 2017-05-20 Reason for #[id number] - RADIOGRAPH, RIGHT 14:12:00 exam:->Right breast MM, MAMMO, SPECIMEN, calcifications RADIOGRAPH, RIGHTSPECIMEN RIGHT BREAST: 05/20/2017Multiple stereotactic guided biopsy specimens were imaged for the area of calcifications located in the right breast at 6 o'clock middle to posterior depth. IMPRESSION: SPECIMENThe imaged specimens includes the calcifications. Olivier Tapia M.D. pth/:05/20/2017 14:12:01 Attending Technologist: Marisol VALLECILLO)Mireille), [facility] [employer] Supervisor: Geovanna VALLECILLO)Mireille), [facility] [id number] , DIGITAL, 2017-05-20 left breast #[id number] - UNILATERAL, CONFER 14:12:00 density/asymmetry MM, DIGITAL, UNILATERAL, ROASS, MAMMO, LEFT CONFER ROSAS, MAMMO, LEFT INCLUDING [...] M.D. pth/:05/20/2017 14:12:38 Attending Technologist: Marisol ARNOLDR)(Sindy), [facility] [employer] Supervisor: Geovanna ROBERTSON (R)), [facility] Mammogram BI-RADS: Post-procedure mammogram for marker placement [id number] , DIGITAL, 2017-05-20 Right breast #[id number] - UNILATERAL, CONFER 14:09:00 calcifications MM, DIGITAL, [...] pth/:05/20/2017 14:09:55 Attending Technologist: Marisol Ayala RT(R)(M), [facility] [employer] Supervisor: Geovanna BELLE(R)(M), [facility] Mammogram BI-RADS: Post-procedure mammogram for marker placement [id number]
--- OUTSIDE RECORDS SUMMARY | 2018-01-12 08:17 | XMS REPORT | Clinical Summary ---
:1955 Author Organization [facility] Address [address] [place] [address] Care Team Providers Name Role Phone Bulmaro Mejias Primary Care Provider Allergies No Known Allergies Medications Medication Sig Dispensed Refills Start Date End Date Status levothyroxine Take 75 mcg by mouth 0 Active (SYNTHROID, daily. LEVOTHROID) 75 MCG tablet losartan-hydrochloro Take 1 tablet by 0 Active thiazide (HYZAAR) mouth daily. 100-25 mg per tablet gabapentin Take 300 mg by mouth 0 Active (NEURONTIN) 300 MG 2 (two) times daily. capsule esomeprazole Take 20 mg by mouth 0 Active (NEXIUM) 20 MG daily. capsule simvastatin (ZOCOR) Take 40 mg by mouth 0 Active 40 MG tablet nightly. amitriptyline Take 50 mg by mouth 0 Active (ELAVIL) 50 MG nightly. tablet octreotide Inject 1 mL (100 mcg 0 01/24/2015 Active (SANDOSTATIN) 100 total) mcg/mL Soln subcutaneously 3 (three) times daily. ferrous sulfate 325 . 0 04/11/2017 Active (65 FE) MG tablet potassium chloride . 0 04/11/2017 Active SA (K-DUR,KLOR-CON) 20 MEQ tablet Active Problems Problem Noted Date GI (gastrointestinal bleed) 01/18/2015 Encounters Date Type Specialty Care Team Description [facility] Encounter Bulmaro Cadena reconstructed breast 05/20/2017 [facility], Breast microcalcifications Encounter Bulmaro Cadena 05/20/2017 [facility], Breast microcalcifications Encounter Bulmaro Cadena 05/20/2017 [facility], Mammographic Encounter Bulmaro Cadena microcalcification 05/19/2017 Outside Orders Central Scheduling Magal[place], Breast microcalcifications (Primary Dx); Bulmaro Cadena Disproportion of reconstructed breast; Mammographic microcalcification after 01/11/2017 Family History Medical History Relation Name Comments Diabetes Father Hypertension Father Diabetes Mother Hypertension Mother Relation Name Status Comments Father Mother Social History Tobacco Use Types Packs/Day Years Used Date Former Smoker Cigarettes 1 25 Quit: 08/31/2005 Smokeless Tobacco: Former User Tobacco Cessation: Counseling Given: No Alcohol Use Drinks/Week oz/Week Comments No Sex Assigned at Date Recorded Not on file Job Start Date Occupation Industry Not on file Not on file Not on file Travel History Travel Start Travel End No recent travel history available. Last Filed Vital Signs Vital Sign Reading Time Taken Blood Pressure 151/74 05/20/2017 12:00 PM ADULT MINISTRIES DIRECTOR Pulse 85 05/20/2017 12:00 PM ADULT MINISTRIES DIRECTOR Temperature 36.7 C (98 F) 05/20/2017 12:00 PM ADULT MINISTRIES DIRECTOR Respiratory Rate 16 05/20/2017 12:00 PM ADULT MINISTRIES DIRECTOR Oxygen Saturation 98% 05/20/2017 12:00 PM ADULT MINISTRIES DIRECTOR Inhaled Oxygen Concentration - - Weight 95.3 kg (210 lb) 05/20/2017 9:00 AM ADULT MINISTRIES DIRECTOR Height 160 cm (5' 3") 05/20/2017 9:00 AM ADULT MINISTRIES DIRECTOR Body Mass Index 37.2 05/20/2017 9:00 AM ADULT MINISTRIES DIRECTOR Plan of Treatment Not on file Procedures Procedure Name Priority Date/Time Associated Diagnosis Comments TISSUE EXAM AP Routine 05/20/2017 Results for 4:40 PM ADULT MINISTRIES DIRECTOR this procedure are in the results section. MM STEREOTACTIC Routine 05/20/2017 Mammographic Results for BREAST BIOPSY - 12:30 PM ADULT MINISTRIES DIRECTOR microcalcification this procedure LEFT are in the results section. MM BREAST SPECIMEN EMELY 05/20/2017 Results for RADIOGRAPH LEFT 12:30 PM ADULT MINISTRIES DIRECTOR this procedure are in the results section. MM, DIGITAL, Routine 05/20/2017 Results for UNILATERAL, CONFER 12:30 PM ADULT MINISTRIES DIRECTOR this procedure ROSAS, MAMMO, LEFT are in the results section. MM BREAST SPECIMEN EMELY 05/20/2017 Results for RADIOGRAPH RIGHT 11:45 AM ADULT MINISTRIES DIRECTOR this procedure are in the results section. MM, DIGITAL, Routine 05/20/2017 Results for UNILATERAL, CONFER 11:45 AM ADULT MINISTRIES DIRECTOR this procedure ROSAS, MAMMO, RIGHT are in the results section. MM STEREOTACTIC Routine 05/20/2017 Breast Results for BREAST BIOPSY - 11:45 AM ADULT MINISTRIES DIRECTOR microcalcifications this procedure RIGHT are in the results section. US BREAST LEFT Routine 05/20/2017 Disproportion of Results for 10:15 AM ADULT MINISTRIES DIRECTOR reconstructed breast this procedure are in the results section. MM DIGITAL MAMMO Routine 05/20/2017 Results for DIAGNOSTIC LEFT 10:00 AM ADULT MINISTRIES DIRECTOR this procedure are in the results section. after 01/11/2017 Results Tissue Exam (05/20/2017 4:40 PM ADULT MINISTRIES DIRECTOR) Case Report Surgical Pathology Report Case: [id number] [facility] Authorizing Provider:Olivier Tapia, MDCollected: 05/20/[address] [facility]2017 1629 Pathologist: Sabi Zuñiga MD Specimens: A) - Breast, Right, RIGHT 6 O'CLOCK BREAST CALIFICATIONS B) - Breast, Left Upper Outer, LEFT UPPER OUTER BREAST MAN WITH CALIFICATIONS DIAGNOSIS A. BREAST, RIGHT, 6 O'CLOCK CALCIFICATIONS, STEREOTACTIC BIOPSY: [facility] - INTRADUCTAL PAPILLOMA, MICROSCOPIC, 1 MM, WITH ATYPIA, EXCISED [facility] - HYALINIZING FIBROADENOMA WITH ASSOCIATED CALCIFICATIONS - USUAL DUCTAL HYPERPLASIA - COLUMNAR CELL CHANGES - BENIGN BREAST TISSUE WITH ASSOCIATED CALCIFICATIONS B. BREAST, LEFT, UPPER OUTER QUADRANT MASS WITH CALCIFICATION, STEREOTACTIC BIOPSY: - APOCRINE METAPLASIA - COLUMNAR CELL CHANGES - USUAL DUCTAL HYPERPLASIA - SCLEROSING ADENOSIS - BENIGN BREAST TISSUE WITH ASSOCIATED CALCIFICATIONS Signing Pathologist Direct Phone Line: [phone] COMMENT Multiple levels (32 levels) [facility] have been performed to [facility] evaluate the biopsies. In the sections examined from both specimens, no carcinoma is identified. CPT Code(s) 50867 X2 [facility] CLINICAL HISTORY Right 6 o'clock breast [facility] calcifications, left upper [facility] breast mass with calcifications SPECIMEN SOURCE A. Right 6 o'clock breast [facility] calcifications biopsy. B. [facility] Left upper outer breast mass with calcifications biopsy GROSS DESCRIPTION The specimen is received in two containers all labeled with the patient's information and "site". [facility] Specimen A: Received in formalin labeled "right [...] cassettes B1-B2. DB/ew MICROSCOPIC DESCRIPTION A-B. Performed. [facility] Specimen Tissue - Breast, Left Upper Outer Performing Organization Address City/State/Zipcode Phone Number [facility] [address] [place] [address] [place] Stereotactic breast biopsy left (05/20/2017 12:30 PM ADULT MINISTRIES DIRECTOR) Narrative Performed At Addendum Begins [facility] AMENDMENT: 06/02/2017 Olivier Tapia M.D. Pathology results are now available and demonstrate sclerosing adenosis. This is concordant with the imaging findings. Addendum Ends #[id number] - MM, STEREOTACTIC BIOPSY, BREAST, LEFT STEREOTACTIC [...] correct location, multiple specimens were obtained using [employer] device. A clip was inserted into the [...] Tapia M.D. pth/:05/20/2017 14:16:43 Attending Technologist: Marisol BELLE(R)(Sindy), [facility] Neurologist: Geovanna Garcia RT(R)(M), [facility] [id number] Procedure Note Interface, External Ris In - 06/02/2017 3:12 PM CDT Addendum Begins AMENDMENT: 06/02/2017 Olivier Tapia M.D. Pathology results are now available and demonstrate sclerosing adenosis. This is concordant with the imaging findings. Addendum Ends #[id number] - MM, STEREOTACTIC BIOPSY, BREAST, LEFT STEREOTACTIC [...] correct location, multiple specimens were obtained using [employer] device. A clip was inserted into the [...] M.D. pth/:05/20/2017 14:16:43 Attending Technologist: Marisol BELLE(R)(M), [facility] Neurologist: Geovanna ARNOLDR)(M), [facility] [id number] Performing Organization Address City/State/Zipcode Phone Number [facility] MM Breast Specimen Radiograph Left (05/20/2017 12:30 PM ADULT MINISTRIES DIRECTOR) Narrative Performed At [facility] #[id number] - MM, MAMMO, SPECIMEN, RADIOGRAPH, LEFT SPECIMEN LEFT BREAST: 05/20/2017 Multiple stereotactic guided biopsy specimens were imaged for the mass with calcifications located in the left breast at 1 o'clock middle to posterior depth. IMPRESSION: SPECIMEN The imaged specimens include the calcification. Olivier Tapia M.D. pth/:05/20/2017 14:17:35 Attending Technologist: Marisol BELLE(R)(Sindy), [facility] Neurologist: Geovanna BELLE(R)(Sindy), [facility] [id number] Procedure Note Interface, External Ris In - 05/20/2017 3:07 PM ADULT MINISTRIES DIRECTOR #[id number] - MM, MAMMO, SPECIMEN, RADIOGRAPH, LEFT SPECIMEN LEFT BREAST: 05/20/2017 Multiple stereotactic guided biopsy specimens were imaged for the mass with calcifications located in the left breast at 1 o'clock middle to posterior depth. IMPRESSION: SPECIMEN The imaged specimens include the calcification. Olivier Tapia M.D. pth/:05/20/2017 14:17:35 Attending Technologist: Marisol ARNOLDR)(Sindy), [facility] Neurologist: Geovanna VALLECILLO)(Sindy), [facility] [id number] Performing Organization Address City/State/Zipcode Phone Number [facility] MM, DIGITAL, UNILATERAL, CONFER ROSAS, MAMMO, LEFT (05/20/2017 12:30 PM ADULT MINISTRIES DIRECTOR) Narrative Performed At [facility] #[id number] - MM, DIGITAL, UNILATERAL, CONFER ROSAS, MAMMO, [...] Tapia M.D. pth/:05/20/2017 14:12:38 Attending Technologist: Marisol BELLE(R)(M), [facility] Neurologist: Geovanna BELLE(R)(M), [facility] Mammogram BI-RADS: Post-procedure mammogram for marker placement [id number] Procedure Note Interface, External Ris In - 05/20/2017 3:07 PM ADULT MINISTRIES DIRECTOR #[id number] - MM, DIGITAL, UNILATERAL, CONFER ROSAS, MAMMO, [...] Tapia M.D. pth/:05/20/2017 14:12:38 Attending Technologist: Marisol BELLE(Elliott)(M), [facility] Neurologist: Geovanna BELLE(R)(M), [facility] Mammogram BI-RADS: Post-procedure mammogram for marker placement [id number] Performing Organization Address City/State/Zipcode Phone Number [facility] MM Stereotactic breast biopsy right (05/20/2017 11:45 AM ADULT MINISTRIES DIRECTOR) Narrative Performed At Addendum Begins [facility] AMENDMENT: 06/02/2017 Olivier Tapia M.D. Pathology results are now available and demonstrate intraductal papilloma with atypia. Addendum Ends #[id number] - MM, STEREOTACTIC BIOPSY, BREAST, RIGHT STEREOTACTIC [...] correct location, multiple specimens were obtained using [employer] device. A clip was inserted into the [...] M.D. pth/:05/20/2017 14:11:25 Attending Technologist: Marisol BELLE(R)(M), [facility] Neurologist: Geovanna Garcia RT(R)(M), [facility] [address] Procedure Note Interface, External Ris In - 06/02/2017 3:12 PM CDT Addendum Begins AMENDMENT: 06/02/2017 Olivier Tapia M.D. Pathology results are now available and demonstrate intraductal papilloma with atypia. Addendum Ends #[id number] - MM, STEREOTACTIC BIOPSY, BREAST, RIGHT STEREOTACTIC [...] correct location, multiple specimens were obtained using [employer] device. A clip was inserted into the [...] M.D. pth/:05/20/2017 14:11:25 Attending Technologist: Marisol BELLE(R)(M), [facility] Neurologist: Geovanna BELLE(R)(M), [facility] [address] Performing Organization Address City/State/Zipcode Phone Number [facility] MM Breast Specimen Radiograph Right (05/20/2017 11:45 AM ADULT MINISTRIES DIRECTOR) Narrative Performed At [facility] #[id number] - MM, MAMMO, SPECIMEN, RADIOGRAPH, RIGHT SPECIMEN RIGHT BREAST: 05/20/2017 Multiple stereotactic guided biopsy specimens were imaged for the area of calcifications located in the right breast at 6 o'clock middle to posterior depth. IMPRESSION: SPECIMEN The imaged specimens includes the calcifications. Olivier Tapia M.D. pth/:05/20/2017 14:12:01 Attending Technologist: Marsiol BELLE(R)(Sindy), [facility] Neurologist: Geovanna BELLE(R)(M), [facility] [id number] Procedure Note Interface, External Ris In - 05/20/2017 3:07 PM ADULT MINISTRIES DIRECTOR #[id number] - MM, MAMMO, SPECIMEN, RADIOGRAPH, RIGHT SPECIMEN RIGHT BREAST: 05/20/2017 Multiple stereotactic guided biopsy specimens were imaged for the area of calcifications located in the right breast at 6 o'clock middle to posterior depth. IMPRESSION: SPECIMEN The imaged specimens includes the calcifications. Olivier Tapia M.D. pth/:05/20/2017 14:12:01 Attending Technologist: Marisol BELLE(R)(Sindy), [facility] Neurologist: Geovanna BELLE(R)(M), [facility] [id number] Performing Organization Address City/State/Zipcode Phone Number [facility] MM, DIGITAL, UNILATERAL, CONFER ROSAS, MAMMO, RIGHT (05/20/2017 11:45 AM ADULT MINISTRIES DIRECTOR) Narrative Performed At [facility] #[id number] - MM, DIGITAL, UNILATERAL, CONFER ROSAS, MAMMO, [...] M.D. pth/:05/20/2017 14:09:55 Attending Technologist: Marisol BELLE(R)(M), [facility] Neurologist: Geovanna BELLE(R)(M), [facility] Mammogram BI-RADS: Post-procedure mammogram for marker placement [id number] Procedure Note Interface, External Ris In - 05/20/2017 3:07 PM ADULT MINISTRIES DIRECTOR #[id number] - MM, DIGITAL, UNILATERAL, CONFER ROSAS, MAMMO, [...] pth/:05/20/2017 14:09:55 Attending Technologist: Marisol Ayala RT(R)(M), [facility] Neurologist: Geovanna BELLE(R)(M), [facility] Mammogram BI-RADS: Post-procedure mammogram for marker placement [id number] Performing Organization Address City/State/Zipcode Phone Number [facility] US left breast (05/20/2017 10:15 AM ADULT MINISTRIES DIRECTOR) Narrative Performed At [facility] #[id number] - MM, U/S, BREAST, UNILATERAL, LEFT ULTRASOUND OF LEFT BREAST: 05/20/2017 Comparison is made to exam dated:05/20/2017 mammogram - [facility]. Color flow and real-time ultrasound of the [...] the patient. Olivier Tapia M.D. pth/:05/20/2017 14:40:22 Neurologist: Sheela Michael, [facility] Ultrasound BI-RADS: 4b Suspicious abnormality - intermediate suspicion of malignancy 60094 Procedure Note Interface, External Ris In - 05/20/2017 3:07 PM ADULT MINISTRIES DIRECTOR #[id number] - MM, U/S, BREAST, UNILATERAL, LEFT ULTRASOUND OF LEFT BREAST: 05/20/2017 Comparison is made to exam dated: 05/20/2017 mammogram - [facility]. Color flow and real-time ultrasound of the [...] the patient. Olivier Tapia M.D. pth/:05/20/2017 14:40:22 Neurologist: Sheela Michael, [facility] Ultrasound BI-RADS: 4b Suspicious abnormality - intermediate suspicion of malignancy [id number] Performing Organization Address City/State/Zipcode Phone Number [facility] MM digital mammo diagnostic left (05/20/2017 10:00 AM ADULT MINISTRIES DIRECTOR) Narrative Performed At [facility] #[id number] - MM, DIGITAL, MAMMO, DIAGNOSTIC, LEFT INCLUDING [...] pth/:05/20/2017 14:15:29 Attending Technologist: Marisol Ayala RT(R)(M), [facility] Neurologist: Geovanna Garcia RT(R)(M), [facility] Mammogram BI-RADS: 0 Indeterminate [id number] Procedure Note Interface, External Ris In - 05/20/2017 3:07 PM ADULT MINISTRIES DIRECTOR #[id number] - MM, DIGITAL, MAMMO, DIAGNOSTIC, LEFT INCLUDING [...] pth/:05/20/2017 14:15:29 Attending Technologist: Marisol Ayala RT(R)(M), [facility] Neurologist: Geovanna BELLE(R)(M), [facility] Mammogram BI-RADS: 0 Indeterminate [address] Performing Organization Address City/State/Zipcode Phone Number [facility] after 01/11/2017 Insurance Payer Benefit Plan / Subscriber ID Type Phone Address Group BLUE CROSS/[employer]UE [employer] OS xxxxxxxxxxxxxxx PPO [phone] [address] [employer] [place] [address] Advance Directives For more information, please contact:[address] [phone] Code Status Date Activated Date Inactivated Comments Full Code 01/18/2015 10:01 PM 01/24/2015 5:45 PM This code status was determined by: Patient
[2018-01-12 09:01] VITALS: BMI 36.6
[2018-01-12] MEDS ORDERED: ONDANSETRON 4 MG/2 ML VIAL IV PRN (09:07)
[2018-01-12] MEDS ORDERED: NA CHLORIDE 0.9% 250 ML ONE ×2 (12:58→18:01)
[2018-01-12 21:27] VITALS: BP 154/53; TEMP 96.8
[2018-01-12 23:07] LABS: Hematocrit 30.3 % (36.0-45.0)
[2018-01-12 23:24] VITALS: O2SAT 98
--- NOTE | 2018-01-13 03:33 | HP ---
Date of Admission: 01/12/2018 Chief Complaint: Anemia. History Of Present Illness: A 62-year-old female who had multiple episodes of GI bleeding, requiring blood transfusion, was found to have a hemoglobin less than 8 as she was feeling weak on ambulation. The patient is admitted for observation for blood transfusion. 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 The patient was on Sandostatin for this reason. Her other medical problems include history o f hypertension, anxiety and depression, and history of aortic stenosis. Family History: Noncontributory. Personal History: She is allergic to aspirin and Motrin, and she has lactose intolerance. Review of Systems: No chest pain or shortness of breath. Physical Examination: General: Revealed a 62-year-old female, pale looking. HEENT: Otherwise negative. Neck: Supple. JVD negative. Chest: Clear. Heart: Systolic murmur present. Otherwise, negative. Abdomen: Soft. Extremities: No edema. Assessment: 1.Yqaqd-ly-lnciowx gastrointestinal bleeding. 2.Hypertension. 3.Aortic stenosis. Plan: The patient will receive 2 units of packed RBC and discharged to the care of GI Service for co ntinued monitoring. REZA Voice ID: [id number]
== END 2018-01-12 23:55 | disposition home or self-care (01) ==
LOC: 2ND 08:14
PROVIDERS: ADMIT Internal Medicine; ATTEND Internal Medicine
PROC: 30233N1 Transfusion of Nonautologous Red Blood Cells into Peripheral Vein, Percutaneous Approach (ICD-10-PCS; principal; 2018-01-12)
DX: K92.2 Gastrointestinal hemorrhage, unspecified (principal); D64.9 Anemia, unspecified; I10 Essential (primary) hypertension; F41.8 Other specified anxiety disorders; Z88.6 Allergy status to analgesic agent; I35.0 Nonrheumatic aortic (valve) stenosis
CPT/HCPCS: 36415; 36430; 85014; 85018; 86850; 86900; 86901; G0378; J2405; P9016

== ENCOUNTER 2018-03-05 09:31 | Observation (INO) | payer BC ==
--- OUTSIDE RECORDS SUMMARY | 2018-03-05 09:33 | XMS REPORT | Clinical Summary ---
:[address] [facility] Address [address] [place] [address] Care Team Providers Name Role Phone Bulmaro [...] Date Type Specialty Care Team Description [facility] Dis[facility] of Encounter Bulmaro Cadena reconstructed breast 05/20/2017 [facility]ifications Encounter Bulmaro Cadena 05/20/2017 [facility]calcifications Encounter Bulmaro Cadena 05/20/2017 [facility] Mamm[facility] Encounter Bulmaro Cadena microcalcification 05/19/2017 Outside Orders Central Scheduling Magalie, Breast microcalcifications (Primary Dx); Bulmaro Cadena Disproportion of reconstructed breast; Mammographic microcalcification after 03/04/2017 Family History Medical History Relation Name Comments [...] Taken Blood Pressure 151/74 05/20/2017 12:00 PM FOOD PACKER Pulse 85 05/20/2017 12:00 PM FOOD PACKER Temperature 36.7 C (98 F) 05/20/2017 12:00 PM FOOD PACKER Respiratory Rate 16 05/20/2017 12:00 PM FOOD PACKER Oxygen Saturation 98% 05/20/2017 12:00 PM FOOD PACKER Inhaled Oxygen Concentration - - Weight 95.3 kg (210 lb) 05/20/2017 9:00 AM FOOD PACKER Height 160 cm (5' 3") 05/20/2017 9:00 AM FOOD PACKER Body Mass Index 37.2 05/20/2017 9:00 AM FOOD PACKER Plan of Treatment Not on file Procedures Procedure Name Priority Date/Time Associated Diagnosis Comments TISSUE EXAM AP Routine 05/20/2017 Results for 4:40 PM FOOD PACKER this procedure are in the results section. MM STEREOTACTIC Routine 05/20/2017 Mammographic Results for BREAST BIOPSY - 12:30 PM FOOD PACKER microcalcification this procedure LEFT are in the results section. MM BREAST SPECIMEN EMELY 05/20/2017 Results for RADIOGRAPH LEFT 12:30 PM FOOD PACKER this procedure are in the results section. MM, DIGITAL, Routine 05/20/2017 Results for UNILATERAL, CONFER 12:30 PM FOOD PACKER this procedure ROSAS, MAMMO, LEFT are in the results section. MM BREAST SPECIMEN EMELY 05/20/2017 Results for RADIOGRAPH RIGHT 11:45 AM FOOD PACKER this procedure are in the results section. MM, DIGITAL, Routine 05/20/2017 Results for UNILATERAL, CONFER 11:45 AM FOOD PACKER this procedure ROSAS, MAMMO, RIGHT are in the results section. MM STEREOTACTIC Routine 05/20/2017 Breast Results for BREAST BIOPSY - 11:45 AM FOOD PACKER microcalcifications this procedure RIGHT are in the results section. US BREAST LEFT Routine 05/20/2017 Disproportion of Results for 10:15 AM FOOD PACKER reconstructed breast this procedure are in the results section. MM DIGITAL MAMMO Routine 05/20/2017 Results for DIAGNOSTIC LEFT 10:00 AM FOOD PACKER this procedure are in the results section. after 03/04/2017 Results Tissue Exam (05/20/2017 4:40 PM FOOD PACKER) Case Report Surgical Pathology Report Case: [id number] [facility] Authorizing Provider:Olivier Tapia, MDCollected: 05/20/2017 1640 [facility]2017 1629 Pathologist: Sabi Zuñiga MD Specimens: A) - Breast, Right, RIGHT 6 O'CLOCK BREAST CALIFICATIONS B) - Breast, Left Upper Outer, LEFT UPPER OUTER BREAST MAN WITH CALIFICATIONS DIAGNOSIS A. 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 BREAST, LEFT, UPPER OUTER QUADRANT MASS WITH CALCIFICATION, STEREOTACTIC BIOPSY: - APOCRINE METAPLASIA - COLUMNAR CELL CHANGES - USUAL DUCTAL HYPERPLASIA - SCLEROSING ADENOSIS - BENIGN BREAST TISSUE WITH ASSOCIATED CALCIFICATIONS Signing Pathologist Direct Phone Line: [phone] COMMENT Multiple levels (32 levels) [facility] have been performed to [facility] evaluate the biopsies. In the sections examined from both specimens, no carcinoma is identified. CPT Code(s) 79263 X2 [facility] CLINICAL HISTORY Right 6 o'clock breast [facility] calcifications, left upper [facility] breast mass with calcifications SPECIMEN SOURCE A. Right 6 o'clock breast [facility] calcifications biopsy. B. [facility] Left upper outer breast mass with calcifications biopsy GROSS DESCRIPTION The specimen is received in two containers all labeled with the patient's information and "site". [facility] Specimen A: Received in formalin labeled [...] cassettes B1-B2. DB/ew MICROSCOPIC DESCRIPTION A-B. Performed. [facility] Specimen Tissue - Breast, Left Upper Outer Performing Organization Address City/State/Zipcode Phone Number [facility] [address] [place] [address] PHILO MM Stereotactic breast biopsy left (05/20/2017 12:30 PM FOOD PACKER) Narrative Performed At Addendum Begins [employer] AMENDMENT: 06/02/2017 Olivier Tapia M.D. Pathology results are now available and demonstrate sclerosing adenosis. This is concordant with the imaging findings. Addendum Ends #[id number] - MM, STEREOTACTIC BIOPSY, BREAST, LEFT STEREOTACTIC [...] correct location, multiple specimens were obtained using Availendar device. A clip was inserted into the [...] M.D. pth/:05/20/2017 14:16:43 Attending Technologist: Marisol BELLE(R)(Sindy), [facility] Paint Crew Supervisor: Geovanna Garcia RT(R)(M), [facility] [id number] Procedure Note Interface, External Ris In - 06/02/2017 3:12 PM CDT Addendum Begins AMENDMENT: 06/02/2017 Olivier Tapia M.D. Pathology results are now available and demonstrate sclerosing adenosis. This is concordant with the imaging findings. Addendum Ends #[id number] - MM, STEREOTACTIC BIOPSY, BREAST, LEFT STEREOTACTIC [...] correct location, multiple specimens were obtained using MeriTaleemIVA device. A clip was inserted into the [...] M.D. pth/:05/20/2017 14:16:43 Attending Technologist: Marisol BELLE(R)(M), [facility] Paint Crew Supervisor: Geovanna ARNOLDR)(M), [facility] [id number] Performing Organization Address City/State/Zipcode Phone Number [facility] MM Breast Specimen Radiograph Left (05/20/2017 12:30 PM FOOD PACKER) Narrative Performed At [facility] #[id number] - MM, MAMMO, SPECIMEN, RADIOGRAPH, LEFT SPECIMEN LEFT BREAST: 05/20/2017 Multiple stereotactic guided biopsy specimens were imaged for the mass with calcifications located in the left breast at 1 o'clock middle to posterior depth. IMPRESSION: SPECIMEN The imaged specimens include the calcification. Olivier Tapia M.D. pth/:05/20/2017 14:17:35 Attending Technologist: Marisol BELLE(R)(Sindy), [facility] Paint Crew Supervisor: Geovanna BELLE(R)(Sindy), [facility] [id number] Procedure Note Interface, External Ris In - 05/20/2017 3:07 PM FOOD PACKER #[id number] - MM, MAMMO, SPECIMEN, RADIOGRAPH, LEFT SPECIMEN LEFT BREAST: 05/20/2017 Multiple stereotactic guided biopsy specimens were imaged for the mass with calcifications located in the left breast at 1 o'clock middle to posterior depth. IMPRESSION: SPECIMEN The imaged specimens include the calcification. Olivier Tapia M.D. pth/:05/20/2017 14:17:35 Attending Technologist: Marisol ARNOLDR)(Sindy), [facility] Paint Crew Supervisor: Geovanna VALLECILLO)(Sindy), [facility] [id number] Performing Organization Address City/State/Zipcode Phone Number [facility] MM, DIGITAL, UNILATERAL, CONFER ROSAS, MAMMO, LEFT (05/20/2017 12:30 PM FOOD PACKER) Narrative Performed At [facility] #[id number] - MM, DIGITAL, UNILATERAL, CONFER ROSAS, MAMMO, [...] M.D. pth/:05/20/2017 14:12:38 Attending Technologist: Marisol BELLE(R)(M), [facility] Paint Crew Supervisor: Geovanna BELLE(R)(M), [facility] Mammogram BI-RADS: Post-procedure mammogram for marker placement [id number] Procedure Note Interface, External Ris In - 05/20/2017 3:07 PM FOOD PACKER #[id number] - MM, DIGITAL, UNILATERAL, CONFER ROSAS, MAMMO, [...] M.D. pth/:05/20/2017 14:12:38 Attending Technologist: Marisol BELLE(Elliott)(M), [facility] Paint Crew Supervisor: Geovanna BELLE(R)(M), [facility] Mammogram BI-RADS: Post-procedure mammogram for marker placement [id number] Performing Organization Address City/State/Zipcode Phone Number [facility] MM Stereotactic breast biopsy right (05/20/2017 11:45 AM FOOD PACKER) Narrative Performed At Addendum Begins [facility] AMENDMENT: 06/02/2017 Olivier Tapia M.D. Pathology results are now available and demonstrate intraductal papilloma with atypia. Addendum Ends #[id number] - MM, STEREOTACTIC BIOPSY, BREAST, RIGHT STEREOTACTIC [...] correct location, multiple specimens were obtained using MeriTaleemIVA device. A clip was inserted into the [...] M.D. pth/:05/20/2017 14:11:25 Attending Technologist: Marisol BELLE(R)(M), [facility] Paint Crew Supervisor: Geovanna Garcia RT(R)(M), [facility] [id number] Procedure Note Interface, External Ris In - 06/02/2017 3:12 PM CDT Addendum Begins AMENDMENT: 06/02/2017 Olivier Tapia M.D. Pathology results are now available and demonstrate intraductal papilloma with atypia. Addendum Ends #[id number] - MM, STEREOTACTIC BIOPSY, BREAST, RIGHT STEREOTACTIC [...] correct location, multiple specimens were obtained using Availendar device. A clip was inserted into the [...] M.D. pth/:05/20/2017 14:11:25 Attending Technologist: Marisol BELLE(R)(M), [facility] Paint Crew Supervisor: Geovanna BELLE(R)(M), [facility] [id number] Performing Organization Address City/State/Zipcode Phone Number [facility] MM Breast Specimen Radiograph Right (05/20/2017 11:45 AM FOOD PACKER) Narrative Performed At [facility] #[id number] - MM, MAMMO, SPECIMEN, RADIOGRAPH, RIGHT SPECIMEN RIGHT BREAST: 05/20/2017 Multiple stereotactic guided biopsy specimens were imaged for the area of calcifications located in the right breast at 6 o'clock middle to posterior depth. IMPRESSION: SPECIMEN The imaged specimens includes the calcifications. Olivier Tapia M.D. pth/:05/20/2017 14:12:01 Attending Technologist: Marisol BELLE(R)(Sindy), [facility] Paint Crew Supervisor: Geovanna BELLE(R)(M), [facility] [id number] Procedure Note Interface, External Ris In - 05/20/2017 3:07 PM FOOD PACKER #[id number] - MM, MAMMO, SPECIMEN, RADIOGRAPH, RIGHT SPECIMEN RIGHT BREAST: 05/20/2017 Multiple stereotactic guided biopsy specimens were imaged for the area of calcifications located in the right breast at 6 o'clock middle to posterior depth. IMPRESSION: SPECIMEN The imaged specimens includes the calcifications. Olivier Tapia M.D. pth/:05/20/2017 14:12:01 Attending Technologist: Marisol BELLE(R)(Sindy), [facility] Paint Crew Supervisor: Geovanna BELLE(R)(M), [facility] [id number] Performing Organization Address City/State/Zipcode Phone Number [facility] MM, DIGITAL, UNILATERAL, CONFER ROSAS, MAMMO, RIGHT (05/20/2017 11:45 AM FOOD PACKER) Narrative Performed At [facility] #[id number] - MM, DIGITAL, UNILATERAL, CONFER ROSAS, MAMMO, [...] M.D. pth/:05/20/2017 14:09:55 Attending Technologist: Marisol BELLE(R)(M), [facility] Paint Crew Supervisor: Geovanna BELLE(R)(M), [facility] Mammogram BI-RADS: Post-procedure mammogram for marker placement [id number] Procedure Note Interface, External Ris In - 05/20/2017 3:07 PM FOOD PACKER #[id number] - MM, DIGITAL, UNILATERAL, CONFER ROSAS, MAMMO, [...] pth/:05/20/2017 14:09:55 Attending Technologist: Marisol Ayala RT(R)(M), [facility] Paint Crew Supervisor: Geovanna BELLE(R)(M), [facility] Mammogram BI-RADS: Post-procedure mammogram for marker placement [id number] Performing Organization Address City/State/Zipcode Phone Number [facility] US left breast (05/20/2017 10:15 AM FOOD PACKER) Narrative Performed At [facility] #[id number] - MM, U/S, BREAST, UNILATERAL, LEFT ULTRASOUND OF LEFT BREAST: 05/20/2017 Comparison is made to exam dated:05/20/2017 mammogram - [facility]. Color flow and real-time ultrasound of [...] the patient. Olivier Tapia M.D. pth/:05/20/2017 14:40:22 Paint Crew Supervisor: Sheela Michael, [facility] Ultrasound BI-RADS: 4b Suspicious abnormality - intermediate suspicion of malignancy [id number] Procedure Note Interface, External Ris In - 05/20/2017 3:07 PM FOOD PACKER #[id number] - MM, U/S, BREAST, UNILATERAL, LEFT ULTRASOUND OF LEFT BREAST: 05/20/2017 Comparison is made to exam dated: 05/20/2017 mammogram - [facility]. Color flow and real-time ultrasound of [...] the patient. Olivier Tapia M.D. pth/:05/20/2017 14:40:22 Paint Crew Supervisor: Sheela Michael, [facility] Ultrasound BI-RADS: 4b Suspicious abnormality - intermediate suspicion of malignancy [id number] Performing Organization Address City/State/Zipcode Phone Number [facility] MM digital mammo diagnostic left (05/20/2017 10:00 AM FOOD PACKER) Narrative Performed At [facility] #[id number] - MM, DIGITAL, MAMMO, DIAGNOSTIC, LEFT INCLUDING [...] pth/:05/20/2017 14:15:29 Attending Technologist: Marisol Ayala RT(R)(M), [facility] Paint Crew Supervisor: Geovanna Garcia RT(R)(M), [facility] Mammogram BI-RADS: 0 Indeterminate [id number] Procedure Note Interface, External Ris In - 05/20/2017 3:07 PM FOOD PACKER #[id number] - MM, DIGITAL, MAMMO, DIAGNOSTIC, LEFT INCLUDING [...] pth/:05/20/2017 14:15:29 Attending Technologist: Marisol Ayala RT(R)(M), [facility] Paint Crew Supervisor: Geovanna BELLE(R)(M), [facility] Mammogram BI-RADS: 0 Indeterminate [id number] Performing Organization Address City/State/Zipcode Phone Number [facility] after 03/04/2017 Insurance Payer Benefit Plan / Subscriber ID Type Phone Address Group BLUE CROSS/BLUE BCBS OS xxxxxxxxxxxxxxx PPO [phone] [address] SHIELD POS/PPO/[place] [address] Advance Directives For more information, please contact:[address] [phone] Code Status Date Activated Date Inactivated Comments Full Code 01/18/2015 10:01 PM 01/24/2015 5:45 PM This code status was determined by: Patient
--- OUTSIDE RECORDS SUMMARY | 2018-03-05 09:33 | XMS REPORT | Clinical Summary ---
:1955 Author Organization [facility] Address [address] [place] [address] Care Team Providers Name Role Phone Asked, No Pcp Primary Care Provider Unavailable Allergies No Known Allergies Medications Medication Sig Dispensed Refills Start Date End Date Status ferrous sulfate 325 TAKE ONE 90 tablet 3 02/18/2016 Active (65 FE) MG tablet TABLET BY MOUTH THREE TIMES A DAY WITH MEALS FOR 30 DAYS levothyroxine Take 75 mcg by 0 Active (SYNTHROID, LEVOXYL) mouth every 75 mcg tablet morning. gabapentin Take 300 mg by 0 Active (NEURONTIN) 300 mg mouth 2 (two) capsule times a day. losartan-hydrochloro Take 1 tablet 0 Active thiazide (HYZAAR) by mouth 100-12.5 mg per daily. tablet esomeprazole Take 40 mg by 0 Active (NexIUM) 40 MG mouth daily capsule before breakfast. potassium chloride Take 20 mEq by 0 Active (KLOR-CON) 20 mEq mouth 2 (two) packet times a day. amitriptyline Take 100 mg by 0 Active (ELAVIL) 50 MG mouth nightly. tablet lanreotide Inject 0.5 mL 1 Syringe 12 02/22/2018 Active (SOMATULINE DEPOT) (120 mg total) 9 [...] syringe every 28 days for 12 doses. lanreotide Inject 0.5 mL 1 Syringe 12 11/09/2017 Discontinued (SOMATULINE DEPOT) (120 mg total) 8 120 mg/0.5 mL under the skin syringeIndications: [...] Encounters Date Type Specialty Care Team Description 03/03/2018 Telephone Oncology Mita Anderson RN 02/22/2018 Orders Only Oncology Mita Anderson RN Intestinal angiodysplasia with bleeding; Iron deficiency anemia due to chronic blood loss 02/20/2018 Office Visit Oncology Neil Weiss, Iron deficiency anemia due to chronic blood loss (Primary Dx); Intestinal angiodysplasia with bleeding 12/08/2017 Telephone Oncology Mita Anderson RN 12/07/2017 [...] RN 03/31/2017 Telephone Oncology Neil Weiss MD after 03/04/2017 Social History Tobacco Use Types Packs/Day Years Used Date Never Smoker Smokeless Tobacco: Never Used Alcohol Use Drinks/Week oz/Week Comments Yes occ Sex Assigned at Date Recorded Not on file Job Start Date Occupation Industry Not on file Not on file Not on file Travel History Travel Start Travel End No recent travel history available. Last Filed Vital Signs Vital Sign Reading Time Taken Blood Pressure 141/60 02/20/2018 12:52 PM MANAGER GIFT Pulse 115 02/20/2018 12:52 PM MANAGER GIFT Temperature 37.1 C (98.7 F) 02/20/2018 12:52 PM MANAGER GIFT Respiratory Rate - - Oxygen Saturation - - Inhaled Oxygen Concentration - - Weight 95 kg (209 lb 8 oz) 02/20/2018 12:52 PM MANAGER GIFT Height - - Body Mass Index 35.96 02/20/2018 12:52 PM MANAGER GIFT Plan of Treatment Health Maintenance Due Date Last Done Comments CERVICAL CANCER SCREENING 02/20/1977 BREAST CANCER SCREENING 02/20/2006 COLON CANCER SCREENING 02/20/2006 SHINGLES VACCINES (1 of 2) 02/20/2006 INFLUENZA VACCINE 10/12/2017 Procedures Procedure Name Priority Date/Time Associated Comments Diagnosis CBC WITH PLATELET AND Routine 10/15/2017 12:00 Results for this DIFFERENTIAL AM CDT procedure are in the results section. POTASSIUM LEVEL Routine 10/15/2017 12:00 Results for this AM CDT procedure are in the results section. after 03/04/2017 Results CBC with platelet and differential (10/15/2017 12:00 AM CDT) WBC 6.5 3.8 - 10.8 Thousand/uL [facility] RBC 4.08 3.80 - 5.10 Million/uL [facility] HGB 12.1 11.7 - 15.5 g/dL [facility] HCT 36.5 35.0 - 45.0 % [facility] MCV 89.5 80.0 - 100.0 fL [facility] MCH 29.7 27.0 - 33.0 pg [facility] MCHC 33.2 32.0 - 36.0 g/dL [facility] RDW 13.4 11.0 - 15.0 % [facility] Platelet count 258 140 - 400 Thousand/uL [facility] MPV 9.7 7.5 - 12.5 fL [facility] Neutrophils, absolute 4,804 1,500 - 7,800 cells/uL [facility] Lymphocytes, absolute 1,125 850 - 3,900 cells/uL [facility] Monocytes, absolute 384 200 - 950 cells/uL [facility] Eosinophils, absolute 130 15 - 500 cells/uL [facility] Basophils, absolute 59 0 - 200 cells/uL [facility] Neutrophils 73.9 % [facility] Lymphocytes 17.3 % [facility] [place] Monocytes 5.9 % [facility] Eosinophils 2.0 % [facility] Basophils + RC 0.9 % [facility] Narrative Performed At FASTING:YES [facility] FASTING: YES Resulting Agency Comment Performing Organization Information: Site ID: [id number] Name: [facility] Address: [address] [place] [id number] Director: Olena Bach Performing Organization Address City/State/[facility] [place] [address] [place] [address] [phone] Potassium level (10/15/2017 12:00 AM CDT) Potassium 4.3 3.5 - 5.3 mmol/L [facility] [place] Narrative Performed At FASTING:YES [facility] FASTING: YES Resulting Agency Comment Performing Organization Information: Site ID: [id number] Name: [facility] Address: [address] [place] [id number] Director: Olena Bach Performing Organization Address City/[facility] Phone Number [facility] [place] [address] [place] [phone] after 03/04/2017 Insurance Payer Benefit Plan / Group Subscriber ID Type Phone Address BCBS BCBS CHOICE PPO/[employer] PPO xxxxxxxxxxxxxxx PPO ([employer]) [place] [address] Advance Directives Patient has advance care planning documents on file. For more information, please contact:[place] [address]
--- OUTSIDE RECORDS SUMMARY | 2018-03-05 09:33 | XMS REPORT ---
:1955 [facility] Address [address] [place] [address] Care Team Providers Name Role Phone CARLOS RODGERS Unavailable Unavailable Problems This patient has no known problems. Allergies, Adverse Reactions, Alerts This patient has no known allergies or adverse reactions. Medications This patient has no known medications. Results Test Description Test Time Test Comments Text Results Atomic Results Result Comments MM, STEREOTACTIC 2017-06-02 Reason for Addendum BeginsMRN#: BIOPSY, BREAST, LEFT 13:11:00 Exam:->r92.0 [id number]: 06/02/2017 Olivier Tapia M.D. Pathology results are now available and demonstrate sclerosing adenosis.This is concordant with the imaging findings. Addendum EndsN#: [id number] - MM, STEREOTACTIC BIOPSY, BREAST, LEFTSTEREOTACTIC GUIDED [...] correct location, multiple specimens were obtained using [employer] device. A clip was inserted into the [...] pth/:05/20/2017 14:16:43 Attending Technologist: Marisol Ayala RT(R)(M), [facility] Wel[employer] Set[employer] Resistance Machine: Geovanna Garcia RT(R)(M), [facility] [id number] , STEREOTACTIC 2017-06-02 Reason for Addendum BeginsMRN#: BIOPSY, BREAST, 13:10:00 Exam:->Microcalcifica [id number]: RIGHT tions 06/02/2017 Olivier Tapia M.D. Pathology results are now available and demonstrate intraductal papilloma with atypia. Addendum EndsMRN#: [id number] - MM, STEREOTACTIC BIOPSY, BREAST, RIGHTSTEREOTACTIC GUIDED [...] correct location, multiple specimens were obtained using [employer] device. A clip was inserted into the [...] pth/:05/20/2017 14:11:25 Attending Technologist: Marisol Ayala RT(R)(M), [facility] Wel[employer] Set[employer] Resistance Machine: Geovanna Garcia RT(R)(M), [facility] [id number] UE EXAM 2017-05-25 Surgical Pathology Report 11:08:00 Case: [id number] Authorizing Provider: Olivier Tapia MD Collected: 05/20/2017 1640 Ordering Location: [facility] Received: 05/20/2017 9885 Pathologist: Sabi Zuñiga MD Specimens: A) - [...] ASSOCIATED CALCIFICATIONS Signing Pathologist Direct Phone Line: [phone] y signed by Sabi Zuñiga MD on 05/25/2017 at 11:08 AMMultiple levels (32 levels) have been performed to evaluate the biopsies. In the sections examined from both specimens, no carcinoma is identified.[id number] 6 o'clock breast calcifications, left upper breast [...] Performed. MM, U/S, BREAST, 2017-05-20 Reason for #[id number] - UNILATERAL, LEFT 14:40:00 Exam:->n65.1 MM, U/S, BREAST, UNILATERAL, LEFTULTRASOUND OF LEFT BREAST: 05/20/2017Comparison is made to exam dated: 05/20/2017 mammogram - [facility]. Color flow and real-time ultrasound [...] the patient. Olivier Tapia M.D. pth/:05/20/2017 14:40:22 Welder Setter Resistance Machine: Sheela Michael, [facility] Ultrasound BI-RADS: 4b Suspicious abnormality - intermediate suspicion of malignancy [id number] , MAMMO, SPECIMEN, 2017-05-20 Reason for #[id number] - RADIOGRAPH, LEFT 14:17:00 exam:->left breast MM, MAMMO, SPECIMEN, asymmetry RADIOGRAPH, LEFTSPECIMEN LEFT BREAST: 05/20/2017Multiple stereotactic guided biopsy specimens were imaged for the mass with calcifications located in the left breast at 1 o'clock middle to posterior depth. IMPRESSION: SPECIMENThe imaged specimens include the calcification. Olivier Tapia M.D. pth/:05/20/2017 14:17:35 Attending Technologist: Marisol VALLECILLO)(Sindy), [facility] Wel[employer] Resistance Machine: Geovanna BELLE(Elliott)(Sindy), [facility] [id number] , DIGITAL, MAMMO, 2017-05-20 Reason for #[id number] - DIAGNOSTIC, LEFT 14:15:00 Exam:->r92.8 MM, DIGITAL, [...] M.D. pth/:05/20/2017 14:15:29 Attending Technologist: Marisol BELLE(R)(Sindy), [facility] Wel[employer] Set[employer] Resistance Machine: Geovanna ARNOLDR)(M), [facility] Mammogram BI-RADS: 0 Indeterminate [id number] , MAMMO, SPECIMEN, 2017-05-20 Reason for #[id number] - RADIOGRAPH, RIGHT 14:12:00 exam:->Right breast MM, MAMMO, SPECIMEN, calcifications RADIOGRAPH, RIGHTSPECIMEN RIGHT BREAST: 05/20/2017Multiple stereotactic guided biopsy specimens were imaged for the area of calcifications located in the right breast at 6 o'clock middle to posterior depth. IMPRESSION: SPECIMENThe imaged specimens includes the calcifications. Olivier Tapia M.D. pth/:05/20/2017 14:12:01 Attending Technologist: Marisol VALLECILLO)Mireille), [facility] Welder Set[employer] Resistance Machine: Geovanna VALLECILLO)Mireille), [facility] [id number] , DIGITAL, 2017-05-20 left breast #[id number] - UNILATERAL, CONFER 14:12:00 density/asymmetry MM, DIGITAL, [...] M.D. pth/:05/20/2017 14:12:38 Attending Technologist: Marisol ARNOLDR)(Sindy), [facility] Welder Setter Resistance Machine: Geovanna ROBERTSON (R)), [facility] Mammogram BI-RADS: Post-procedure mammogram for marker placement [id number] , DIGITAL, 2017-05-20 Right breast #[id number] - UNILATERAL, CONFER 14:09:00 calcifications MM, DIGITAL, [...] pth/:05/20/2017 14:09:55 Attending Technologist: Marisol Ayala RT(R)(M), [facility] Welder Set[employer] Resistance Machine: Geovanna BELLE(R)(M), [facility] Mammogram BI-RADS: Post-procedure mammogram for marker placement [id number]
[2018-03-05 10:22] LABS: Protime INR 1.07
[2018-03-05 10:40] LABS: Potassium 3.5 mmol/L (3.5-5.1)
[2018-03-05 10:41] LABS: Albumin 3.3 g/dL (3.4-5.0); Bilirubin Direct 0.1 mg/dL (0-0.2); Bilirubin Total 0.2 mg/dL (0.2-1.0); Protein, Total 6.6 g/dL (6.4-8.2); Troponin (Emerg Dept Use Only) 0.03 ng/mL (0.0-0.045)
[2018-03-05 10:48] LABS: Absolute Lymphocytes (CBC) 0.9 K/uL (0.7-4.9); Absolute Monocytes 0.4 K/uL (0.1-1.3); Absolute Neutrophil 6.7 K/uL (1.8-8.0); Basophils % 0.5 % (0-1.3); Eosinophils % 1.3 % (0-4.4); Hematocrit 22.9 % (36.0-45.0); MPV 7.1 fL (7.6-11.3); Monocytes % 4.6 % (3.3-12.3); RBC Red Blood Cell Count 2.44 M/uL (3.86-4.86)
--- NOTE | 2018-03-05 11:31 | ER ---
Nurse's Notes [facility] Name: Charlee Johnson Age: 63 yrs Sex: Female : 1955 Arrival Date: 03/05/2018 Time: 09:33 Bed 7 Private MD: Bulmaro Quinn R Diagnosis: Anemia in chronic diseases classified elsewhere Presentation: 03/05 09:43 Presenting complaint: Patient states: I have anemia and I have been really weak and la1 dizzy, I think I need some blood. Transition of care: patient was not received from another setting of care. Onset of symptoms was March 05, 2018. Risk Assessment: Do you want to hurt yourself or someone else? Patient reports no desire to harm self or others. Initial Sepsis Screen: Does the patient meet any 2 criteria? No. Patient's initial sepsis screen is negative. Does the patient have a suspected source of infection? No. Patient's initial sepsis screen is negative. Care prior to arrival: None. 09:43 Method Of Arrival: Wheelchair la1 09:43 Acuity: ZACH 3 la1 Triage Assessment: 09:45 General: Appears in no apparent distress. comfortable, Behavior is calm, cooperative, bp appropriate for age. Historical: - Allergies: :44 lactose intolerant; la1 - Home Meds: 12:23 amitriptyline 50 mg Oral tab 2 tabs once daily [Active]; ferrous sulfate 325 mg (65 mg bp iron) Oral tab three times a day [Active]; gabapentin 300 mg Oral cap 1 cap twice a day for Neuropathic Pain [Active]; Klor-Con M20 20 mEq Oral TbTQ 1 tab once daily [Active]; levothyroxine 75 mcg tab 1 tab once daily [Active]; losartan-hydrochlorothiazide 100-25 mg Oral tab 1 tab once daily [Active]; Nexium Oral [Active]; sandostatin lar 30mg depot IM kit [Active]; simvastatin 40 mg Oral tab 1 tab once daily [Active]; - PMHx: 09:44 Anemia; GI Bleed; Heart Murmur; Hypertension; la1 - Immunization history:: Adult Immunizations up to date. - Social history:: Smoking status: Patient/guardian denies using tobacco. - Ebola Screening: : No symptoms or risks identified at this time. Screenin:45 Abuse screen: Denies threats or abuse. Denies injuries from another. Nutritional bp screening: No deficits noted. Tuberculosis screening: No symptoms or risk factors identified. Fall Risk None identified. Assessment: 09:45 General: Appears in no apparent distress. comfortable, Behavior is calm, cooperative, bp appropriate for age. Pain: Denies pain. Neuro: Level of Consciousness is awake, alert, obeys commands, Oriented to person, place, time, situation, Appropriate for age. Cardiovascular: Rhythm is sinus tachycardia. Respiratory: Airway is patent Respiratory effort is even, unlabored, Respiratory pattern is regular, symmetrical. GI: No signs and/or symptoms were reported involving the gastrointestinal system. : No signs and/or symptoms were reported regarding the genitourinary system. EENT: No deficits noted. Derm: Skin is pale. Musculoskeletal: Circulation, motion, and sensation intact. Range of motion: intact in all extremities. 10:47 Reassessment: ALL CURRENT ORDERS COMPLETED, RESULTS PENDING. bp 11:31 Reassessment: ADMIT REQUEST SUBMITTED. PT CONSENTED FOR TWO UNITS PRBC, REQUESTED BY bp PCP. Vital Signs: 09:44 BP 115 / 50; Pulse 103; Resp 18; Temp 97.5; Pulse Ox 98% on R/A; Weight 90.72 kg; la1 Height 5 ft. 4 in. (162.56 cm); 10:44 BP 148 / 58 Supine; Pulse 97; jb1 10:44 BP 158 / 58 Sitting; Pulse 99; jb1 10:44 BP 166 / 57 Standing; Pulse 103; jb1 11:32 BP 132 / 49; Pulse 94; Resp 14; Pulse Ox 97% ; bp 12:27 BP 142 / 58; Pulse 105; Resp 16; Pulse Ox 100% ; bp 09:44 Body Mass Index 34.33 (90.72 kg, 162.56 cm) la1 ED Course: 09:33 Patient arrived in ED. rg4 09:33 Bulmaro Quinn MD is Private Physician. rg4 09:44 Triage completed. la1 09:44 Arm band placed on left wrist. la1 09:45 Patient has correct armband on for positive identification. Placed in gown. Bed in low bp position. Call light in reach. Side rails up X2. Adult w/ patient. 09:50 Paul Gabriel PA is PHCP. cp 09:50 Hemal Kunz MD is Attending Physician. cp 09:51 Eric Nunez, RN is Primary Nurse. bp 10:43 EKG done, by ED staff, reviewed by Paul ARIAS. Lab(s) recollected, by me, sent to jb1 lab. Inserted saline lock: 20 gauge in left antecubital area, using aseptic technique. Blood collected. 11:30 Bulmaro Quinn MD is Hospitalizing Provider. cp 12:21 No provider procedures requiring assistance completed. Patient admitted, IV remains in bp place. Administered Medications: No medications were administered Outcome: 11:31 Decision to Hospitalize by Provider. cp 12:23 Admitted to Tele accompanied by tech, family with patient, via wheelchair, room 414, bp with chart, Report called to LÁZARO TREVINO 12:23 Condition: stable 12:23 Instructed on the need for admit. 12:39 Patient left the ED. bp Signatures: Herve Coombs jb1 Jun Story, RN RN la1 Paul Gabriel PA PA Yee Armenta rg4 Eric Nunez, RN RN bp
--- NOTE | 2018-03-05 11:31 | EDPHYS ---
Physician Documentation [facility] Name: Charlee Johnson Age: 63 yrs Sex: Female : 1955 Arrival Date: 03/05/2018 Time: 09:33 Bed 7 Private MD: Bulmaro Quinn R ED Physician Hemal Kunz HPI: 03/05 10:03 This 63 yrs old Female presents to ER via Wheelchair with complaints of cp Weakness, Dizziness. 10:03 The patient presents to the emergency department with weakness of the entire body, cp generalized weakness, that is moderate. Onset: The symptoms/episode began/occurred gradually. Associated signs and symptoms: Pertinent positives: dizziness. Historical: - Allergies: 09:44 lactose intolerant; la1 - Home Meds: 12:23 amitriptyline 50 mg Oral tab 2 tabs once daily [Active]; ferrous sulfate 325 mg (65 mg bp iron) Oral tab three times a day [Active]; gabapentin 300 mg Oral cap 1 cap twice a day for Neuropathic Pain [Active]; Klor-Con M20 20 mEq Oral TbTQ 1 tab once daily [Active]; levothyroxine 75 mcg tab 1 tab once daily [Active]; losartan-hydrochlorothiazide 100-25 mg Oral tab 1 tab once daily [Active]; Nexium Oral [Active]; sandostatin lar 30mg depot IM kit [Active]; simvastatin 40 mg Oral tab 1 tab once daily [Active]; - PMHx: 09:44 Anemia; GI Bleed; Heart Murmur; Hypertension; la1 - Immunization history:: Adult Immunizations up to date. - Social history:: Smoking status: Patient/guardian denies using tobacco. - Ebola Screening: : No symptoms or risks identified at this time. ROS: 10:10 Constitutional: Negative for body aches, chills, fever, poor PO intake. cp 10:10 Eyes: Negative for injury, pain, redness, and discharge. cp 10:10 ENT: Negative for drainage from ear(s), ear pain, sore throat, difficulty swallowing, difficulty handling secretions. 10:10 Cardiovascular: Negative for chest pain, edema, palpitations. 10:10 Respiratory: Negative for cough, shortness of breath, wheezing. 10:10 Abdomen/GI: Negative for abdominal pain, nausea, vomiting, and diarrhea, constipation, black/tarry stool, rectal bleeding. 10:10 Back: Negative for pain at rest, pain with movement. 10:10 Skin: Negative for cellulitis, rash. 10:10 Neuro: Positive for dizziness, general weakness, Negative for altered mental status, seizure activity, syncope, near syncope. 10:10 All other systems are negative. Exam: 10:15 Constitutional: The patient appears in no acute distress, alert, awake, cp non-diaphoretic, non-toxic, well developed, well nourished. 10:15 Head/Face: Normocephalic, atraumatic. cp 10:15 Eyes: Periorbital structures: appear normal, Pupils: equal, round, and reactive to light and accomodation, Extraocular movements: intact throughout, Conjunctiva: normal, no exudate, no injection, Sclera: no appreciated abnormality, Lids and lashes: appear normal, bilaterally. 10:15 ENT: External ear(s): are unremarkable, Nose: is normal, Mouth: Lips: moist, Oral mucosa: pink and intact, moist, Posterior pharynx: is normal, airway is patent, no erythema, no exudate, Voice: is normal. 10:15 Neck: ROM/movement: is normal, is supple, without pain, no range of motions limitations, no nuchal rigidity. 10:15 Chest/axilla: Inspection: normal, Palpation: is normal, no crepitus, no tenderness. 10:15 Cardiovascular: Rate: tachycardic, Rhythm: regular, Edema: is not appreciated, JVD: is not appreciated. 10:15 Respiratory: the patient does not display signs of respiratory distress, Respirations: normal, no use of accessory muscles, no retractions, no splinting, no tachypnea, labored breathing, is not present, Breath sounds: are clear throughout, no decreased breath sounds, no stridor, no wheezing. 10:15 Abdomen/GI: Inspection: abdomen appears normal, Palpation: abdomen is soft and non-tender, in all quadrants. 10:15 Back: pain, is absent, ROM is normal. 10:15 Skin: cellulitis, is not appreciated, no rash present. 10:15 Neuro: Orientation: to person, place \T\ time. Mentation: is normal, Cerebellar function: is grossly normal, Motor: moves all fours, strength is normal, Sensation: is normal. 10:27 ECG was reviewed by the Attending Physician. cp Vital Signs: 09:44 BP 115 / 50; Pulse 103; Resp 18; Temp 97.5; Pulse Ox 98% on R/A; Weight 90.72 kg; la1 Height 5 ft. 4 in. (162.56 cm); 10:44 BP 148 / 58 Supine; Pulse 97; jb1 10:44 BP 158 / 58 Sitting; Pulse 99; jb1 10:44 BP 166 / 57 Standing; Pulse 103; jb1 11:32 BP 132 / 49; Pulse 94; Resp 14; Pulse Ox 97% ; bp 12:27 BP 142 / 58; Pulse 105; Resp 16; Pulse Ox 100% ; bp 09:44 Body Mass Index 34.33 (90.72 kg, 162.56 cm) la1 MDM: 09:50 Patient medically screened. cp 11:29 Data reviewed: vital signs, nurses notes, lab test result(s). Physician consultation: cp Bulmaro Quinn MD was called at 11:20, was contacted at 11:20, regarding admission, to the telemetry unit. patient's condition, requests patient to be admitted for observation and 2 units of blood given. 03/05 09:52 Order name: Basic Metabolic Panel; Complete Time: 10:50 bp 03/05 10:50 Interpretation: Normal except: NA 133; CL 97; GLUC 247; GFR 83; CA 8.4. cp 03/05 09:52 Order name: CBC with Diff; Complete Time: 11:03 bp 03/05 11:03 Interpretation: Normal except: RBC 2.44; HGB 8.0; HCT 22.9; MCV 94.0; RDW 17.9; MPV cp 7.1; GUERLINE% 82.6; LYM% 11.0. 03/05 09:52 Order name: LFT's; Complete Time: 10:50 bp 03/05 09:52 Order name: Magnesium; Complete Time: 10:50 bp 03/05 09:52 Order name: NT PRO-BNP; Complete Time: 10:50 bp 03/05 09:52 Order name: PT-INR; Complete Time: 10:25 bp 03/05 09:52 Order name: Troponin (emerg Dept Use Only); Complete Time: 10:50 bp 03/05 10:02 Order name: Type And Screen cp 03/05 11:32 Order name: LAB Add On ag 03/05 11:36 Order name: ABO rpt EDMD 03/05 11:37 Order name: Packed RBCs (Additional Unit) EDMD 03/05 11:38 Order name: Basic Metabolic Panel EDMD 03/05 11:38 Order name: Basic Metabolic Panel EDMD 03/05 11:38 Order name: CBC with Automated Diff EDMS 03/05 09:52 Order name: EKG; Complete Time: 09:53 bp 03/05 09:52 Order name: Cardiac monitoring; Complete Time: 10:11 bp 03/05 09:52 Order name: EKG - Nurse/Tech; Complete Time: 10:11 bp 03/05 09:52 Order name: IV Saline Lock; Complete Time: 10:45 bp 03/05 09:52 Order name: Labs collected and sent; Complete Time: 10:12 bp 03/05 09:52 Order name: O2 Per Protocol; Complete Time: 10:12 bp 03/05 09:52 Order name: O2 Sat Monitoring; Complete Time: 10:12 bp 03/05 10:02 Order name: Orthostatics; Complete Time: 10:30 cp 03/05 11:38 Order name: Regular EDMD 03/05 11:38 Order name: CBC with Automated Diff EDMD 03/05 12:32 Order name: Urine Dipstick--Ancillary (enter results) ag 03/05 12:39 Order name: Urine Dipstick-Ancillary EDMS EC:27 Rate is 95 beats/min. Rhythm is regular. AR interval is normal. QRS interval is cp prolonged at 106 msec. QT interval is normal. Interpreted by me. Reviewed by me. Administered Medications: No medications were administered Disposition: 03/05/18 11:31 Hospitalization ordered by Bulmaro Quinn for Observation. Preliminary diagnosis is Anemia in chronic diseases classified elsewhere. - Bed requested for Telemetry/MedSurg (observation). - Status is Observation. bp - Condition is Stable. - Problem is chronic. - Symptoms are unchanged. UTI on Admission? No Addendum: 03/16/2018 15:26 Co-signature as Attending Physician, Hemal Kunz MD Available for consultation at p s1 all times. . Signatures: Dispatcher [employer] EDMD Emiliana Patterson RN RN dw Jun Story RN RN la1 Paul Gabriel PA PA cp Eric Nunez, RN RN bp Hemal Kunz MD MD ps1 Corrections: (The following items were deleted from the chart) 03/05 10:50 10:50 Normal except: NA 133; CL 97; GLUC 247; GFR 83. cp cp 12:14 11:31 Hospitalization Ordered by Bulmaro Quinn MD for Observation. Preliminary diagnosis dw is Anemia in chronic diseases classified elsewhere. Bed requested for Telemetry/MedSurg (observation). Status is Observation. Condition is Stable. Problem is chronic. Symptoms are unchanged. UTI on Admission? No. cp 12:39 12:14 03/05/2018 11:31 Hospitalization Ordered by Bulmaro Quinn MD for Observation. bp Preliminary diagnosis is Anemia in chronic diseases classified elsewhere. Bed requested for Telemetry/MedSurg (observation). Status is Observation. Condition is Stable. Problem is chronic. Symptoms are unchanged. UTI on Admission? No. dw
[2018-03-05] MEDS ORDERED: ONDANSETRON 4 MG/2 ML VIAL IV PRN (11:34)
[2018-03-05] MEDS ORDERED: ACETAMINOPHEN 500 MG TAB PO PRN (11:34)
[2018-03-05] MEDS ORDERED: NA CHLORIDE 0.9% 250 ML IV SCH (12:00)
[2018-03-05 12:38] LABS: Urine Blood NEGATIVE (NEG); Urine Glucose TRACE (NEG); Urine Protein NEGATIVE (NEG); Urine Specific Gravity 1.015 (1.005-1.030)
[2018-03-05 12:56] VITALS: BMI 34.3
--- NOTE | 2018-03-05 17:27 | EKG ---
Test Date: 2018-03-05 Test Time: 10:15:23 Grease Press Helper: ANDREINA MEASUREMENT RESULTS: Intervals: Rate: 95 GA: 168 QRSD: 106 QT: 376 QTc: 472 [place]ax: P: 52 GA: 168 QRS: 43 T: 173 INTERPRETIVE STATEMENTS: Normal sinus rhythm Possible Left atrial enlargement Cannot rule out Anterior infarct, age undetermined Marked ST abnormality, possible lateral subendocardial injury Abnormal ECG Compared to ECG 03/03/2017 08:16:49 Possible ischemia no longer present Myocardial infarct finding still present ST (T wave) deviation still present Electronically Signed On 03-05-18 17:17:50 TRAINING INTERN by Jae Catherine
[2018-03-05] MEDS ORDERED: NA CHLORIDE 0.9% 250 ML ONE (18:13)
[2018-03-06 05:48] LABS: Absolute Lymphocytes (CBC) 1.4 K/uL (0.7-4.9); Absolute Monocytes 0.5 K/uL (0.1-1.3); Absolute Neutrophil 6.6 K/uL (1.8-8.0); Basophils % 0.6 % (0-1.3); Eosinophils % 1.5 % (0-4.4); Hematocrit 28.7 % (36.0-45.0); Lymphocytes % 16.3 % (15.3-44.8); MPV 7.2 fL (7.6-11.3); Monocytes % 5.4 % (3.3-12.3); RBC Red Blood Cell Count 3.16 M/uL (3.86-4.86)
[2018-03-06 05:59] LABS: BUN Blood Urea Nitrogen 10 mg/dL (7-18); Bicarbonate 29 mmol/L (21-32); Glucose Level 176 mg/dL (74-106); Potassium 3.4 mmol/L (3.5-5.1); Sodium Level 134 mmol/L (136-145)
--- NOTE | 2018-03-06 08:28 | HP ---
Date of Admission: 03/05/2018 Chief Complaint: Anemia. History Of Present Illness: A 63-year-old female who is known to have chronic angiodysplasia related GI bleeding. She had multiple transfusions. She also is on iron infusion therapy. She felt weak a nd tired suddenly. Her hemoglobin was over 11 g last week, however, it fell to 8 g. In view of her symptoms as well as sudden drop, the patient is admitted for observation for blood transfusion. Ther e is no history of gross melenic stools. Past Medical History: Positive for hypertension, recurrent GI bleeding secondary to small bowel lalit odysplasia. She is known to have systolic heart murmur. Family History: Noncontributory. Personal History: Nonsmoker. Home Medicines: iron, Neurontin, Levothroid, losartan with hydrochlorothiazide, Nexium, Z ocor. Review of Systems: No chest pain or shortness of breath. Physical Examination: General: Revealed ill-looking 63-year-old female. HEENT: Otherwise negative. Neck: Supple. JVD negative. Chest: Clear. Heart: Systolic murmur, otherwise negative. Abdomen: Soft. Extremities: No edema. Laboratory Data: Hemoglobin 8.0. Assessment: 1.Anemia secondary to gastrointestinal bleeding. 2.Chronic angiodysplasia. 3.Hypertension. 4.Hypothyroidism. 5.Systolic murmur. Plan: A 2 units of packed RBC. Recheck hemoglobin and hematocrit. ERIC/ASMITA Voice ID: [id number]
[2018-03-06 08:34] VITALS: BP 128/55; TEMP 98.2
[2018-03-06 08:53] VITALS: O2SAT 96
== END 2018-03-06 09:15 | disposition home or self-care (01) ==
LOC: ER 09:31 → ERHOLD 11:33 → 4TH 12:23
PROVIDERS: ADMIT Internal Medicine; ATTEND Internal Medicine
DX: D64.9 Anemia, unspecified (principal); K55.21 Angiodysplasia of colon with hemorrhage; I10 Essential (primary) hypertension; E03.9 Hypothyroidism, unspecified; R01.1 Cardiac murmur, unspecified
CPT/HCPCS: 36415; 36430; 80048; 80076; 81003; 83735; 83880; 84484; 85014; 85018; 85025; 85610; 86850; 86900; 86901; 93005; 99285; G0378; P9016

== ENCOUNTER 2018-06-01 06:51 | Day surgery (SDC) | payer BC ==
--- OUTSIDE RECORDS SUMMARY | 2018-06-01 06:54 | XMS REPORT | Clinical Summary ---
:1955 Author Organization [facility] Address [address] [place] [address] Care Team Providers Name Role Phone KaiyumikoBulmaor Cadena Primary Care Provider Allergies No Known Allergies [...] Problem Noted Date GI (gastrointestinal bleed) 01/18/2015 Family History Medical History Relation Name Comments [...] travel history available. Last Filed Vital Signs Not on file Plan of Treatment Not on file Results Not on fileafter 05/31/2017 Insurance Payer Benefit Plan / Subscriber ID Type Phone Address Group [employer]UE [employer] xxxxxxxxxxxxxxx PPO [phone] [address] [employer] [place] [address] Advance Directives For more information, please contact:[facility], [place] [phone] Code Status Date Activated Date Inactivated Comments Full Code 01/18/2015 10:01 PM 01/24/2015 5:45 PM This code status was determined by: Patient
--- OUTSIDE RECORDS SUMMARY | 2018-06-01 06:54 | XMS REPORT ---
:1955 [facility] Address [address] [place] [address] Care Team Providers Name Role Phone CARLOS RODGERS Unavailable Unavailable Problems This patient has no known problems. Allergies, Adverse Reactions, Alerts This patient has no known allergies or adverse reactions. Medications This patient has no known medications. Results Test Description Test Time Test Comments Text Results Atomic Results Result Comments MM, STEREOTACTIC 2017-06-02 Reason for Addendum BeginsMRN#: BIOPSY, BREAST, LEFT 13:11:00 Exam:->r92.0 [id number]: 06/02/2017 Olivier Tapia M.D. Pathology results are now available and demonstrate sclerosing adenosis.This is concordant with the imaging findings. Addendum EndsN#: [id number] - MM, STEREOTACTIC BIOPSY, BREAST, LEFTSTEREOTACTIC GUIDED [...] correct location, multiple specimens were obtained using [employer] device. A clip was inserted into the [...] pth/:05/20/2017 14:16:43 Attending Technologist: Marisol Ayala RT(R)(M), [facility] Interactive Media Project Manager: Geovanna Garcia RT(R)(M), [facility] [id number] , STEREOTACTIC 2017-06-02 Reason for Addendum BeginsMRN#: BIOPSY, BREAST, 13:10:00 Exam:->Microcalcifica [id number]: RIGHT tions 06/02/2017 Olivier Tapia M.D. Pathology results are now available and demonstrate intraductal papilloma with atypia. Addendum EndsMRN#: [id number] - MM, STEREOTACTIC BIOPSY, BREAST, RIGHTSTEREOTACTIC GUIDED [...] correct location, multiple specimens were obtained using [employer] device. A clip was inserted into the [...] pth/:05/20/2017 14:11:25 Attending Technologist: Marisol Ayala RT(R)(M), [facility] Interactive Media Project Manager: Geovanna Garcia RT(R)(M), [facility] [id number] UE EXAM 2017-05-25 Surgical Pathology Report 11:08:00 Case: [id number] Authorizing Provider: Olivier Tapia MD Collected: 05/20/2017 1640 [facility] [place] Received: 05/20/2017 2243 Pathologist: Sabi Zuñiga MD Specimens: A) - [...] ASSOCIATED CALCIFICATIONS Signing Pathologist Direct Phone Line: [phone] y signed by Sabi Zuñiga MD on 05/25/2017 at 11:08 AMMultiple levels (32 levels) have been performed to evaluate the biopsies. In the sections examined from both specimens, no carcinoma is identified.[id number] 6 o'clock breast calcifications, left upper breast [...] Performed. MM, U/S, BREAST, 2017-05-20 Reason for #[id number] - UNILATERAL, LEFT 14:40:00 Exam:->n65.1 MM, U/S, BREAST, UNILATERAL, LEFTULTRASOUND OF LEFT BREAST: 05/20/2017Comparison is made to exam dated: 05/20/2017 mammogram - [facility]. Color flow and real-time ultrasound of the [...] the patient. Olivier Tapia M.D. pth/:05/20/2017 14:40:22 Interactive Media Project Manager: Sheela Michael, [facility] Ultrasound BI-RADS: 4b Suspicious abnormality - intermediate suspicion of malignancy [id number] , MAMMO, SPECIMEN, 2017-05-20 Reason for #[id number] - RADIOGRAPH, LEFT 14:17:00 exam:->left breast MM, MAMMO, SPECIMEN, asymmetry RADIOGRAPH, LEFTSPECIMEN LEFT BREAST: 05/20/2017Multiple stereotactic guided biopsy specimens were imaged for the mass with calcifications located in the left breast at 1 o'clock middle to posterior depth. IMPRESSION: SPECIMENThe imaged specimens include the calcification. Olivier Tapia M.D. pth/:05/20/2017 14:17:35 Attending Technologist: Marisol VALLECILLO)(Sindy), [facility] Interactive Media Project Manager: Geovanna BELLE(Elliott)(Sindy), [facility] [id number] , DIGITAL, MAMMO, 2017-05-20 Reason for #[id number] - DIAGNOSTIC, LEFT 14:15:00 Exam:->r92.8 MM, DIGITAL, [...] M.D. pth/:05/20/2017 14:15:29 Attending Technologist: Marisol BELLE(R)(Sindy), [facility] Interactive Media Project Manager: Geovanna ARNOLDR)(M), [facility] Mammogram BI-RADS: 0 Indeterminate [id number] , MAMMO, SPECIMEN, 2017-05-20 Reason for #[id number] - RADIOGRAPH, RIGHT 14:12:00 exam:->Right breast MM, MAMMO, SPECIMEN, calcifications RADIOGRAPH, RIGHTSPECIMEN RIGHT BREAST: 05/20/2017Multiple stereotactic guided biopsy specimens were imaged for the area of calcifications located in the right breast at 6 o'clock middle to posterior depth. IMPRESSION: SPECIMENThe imaged specimens includes the calcifications. Olivier Tapia M.D. pth/:05/20/2017 14:12:01 Attending Technologist: Marisol VALLECILLO)Mireille), [facility] Interactive Media Project Manager: Geovanna VALLECILLO)Mireille), [facility] [id number] , DIGITAL, 2017-05-20 left breast #[id number] - UNILATERAL, CONFER 14:12:00 density/asymmetry MM, DIGITAL, [...] M.D. pth/:05/20/2017 14:12:38 Attending Technologist: Marisol ARNOLDR)(Sindy), [facility] Interactive Media Project Manager: Geovanna ROBERTSON (R)), [facility] Mammogram BI-RADS: Post-procedure mammogram for marker placement [id number] , DIGITAL, 2017-05-20 Right breast #[id number] - UNILATERAL, CONFER 14:09:00 calcifications MM, DIGITAL, [...] 14:09:55 Attending Technologist: Marisol Ayala RT(R)(M), [facility] Interactive Media Project Manager: Geovanna BELLE(R)(M), [facility] Mammogram BI-RADS: Post-procedure mammogram for marker placement [id number]
--- OUTSIDE RECORDS SUMMARY | 2018-06-01 06:54 | XMS REPORT | Clinical Summary ---
:1955 Author Organization [facility] Address [address] [place] [address] Care Team Providers Name Role Phone Asked, [...] Active (ELAVIL) 50 MG mouth nightly. tablet octreotide,microsphe Inject 30 mg 30 mg 0 04/24/2018 Active res (SandoSTATIN LAR into the [place]) 30 mg shoulder, suspension,extended thigh, or rel buttocks every reconIndications: 28 days. Intestinal angiodysplasia with bleeding lanreotide Inject 0.5 mL 1 Syringe 12 [...] with 28 days for 1 bleeding dose. lanreotide Inject 0.5 mL 1 Syringe 12 02/22/2018 Discontinued (SOMATULINE DEPOT) (120 mg total) 9 120 mg/0.5 mL under the skin syringeIndications: every 28 days Intestinal for 12 doses. angiodysplasia with bleeding, Iron deficiency anemia due to chronic blood loss octreotide,microsphe Inject 30 mg 30 mg 11 04/24/2018 Discontinued res (SANDOSTATIN into the 9 LAR) 30 mg shoulder, suspension,extended thigh, or rel buttocks once reconIndications: for 1 dose. Intestinal angiodysplasia with bleeding octreotide,microsphe Inject 30 mg 1 each 04/24/2018 Discontinued res (SANDOSTATIN into the 9 LAR) 30 mg shoulder, suspension,extended thigh, or rel buttocks every reconIndications: 30 (thirty) Intestinal days. angiodysplasia with bleeding octreotide,microsphe Inject 30 mg 30 mg 11 04/24/2018 Discontinued res (SandoSTATIN LAR into the 9 [place]) 30 mg shoulder, suspension,extended thigh, or rel buttocks every reconIndications: 30 (thirty) Intestinal days. angiodysplasia with bleeding octreotide,microsphe Inject 30 mg 30 mg 11 04/24/2018 Discontinued res (SandoSTATIN LAR into the 9 [place]) 30 mg shoulder, suspension,extended thigh, or rel buttocks once reconIndications: every 29 days. Intestinal angiodysplasia with bleeding 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 Iron deficiency anemia due to chronic blood loss 05/17/2016 Encounters Date Type Specialty Care Team Description 05/31/2018 Telephone Oncology Neil Weiss MD 05/31/2018 Telephone Oncology Mita Anderson RN 04/24/2018 Orders Only Oncology Mita Anderson RN Intestinal angiodysplasia with bleeding (Primary Dx) 04/24/2018 Orders Only Oncology Mita Anderson RN Intestinal angiodysplasia with bleeding (Primary Dx) 04/18/2018 Telephone Oncology Neil Weiss Intestinal angiodysplasia with MD bleeding (Primary Dx) 03/08/2018 Telephone Oncology Neil Weiss MD 03/03/2018 Telephone Oncology Mita Anderson RN 02/22/2018 [...] 10/15/2017 Orders Only Oncology Neil Weiss MD after 05/31/2017 Social History Tobacco Use Types Packs/Day Years [...] Taken Blood Pressure 141/60 02/20/2018 12:52 PM [employer] Pulse 115 02/20/2018 12:52 PM [employer] Temperature 37.1 C (98.7 F) 02/20/2018 12:52 PM [employer] Respiratory Rate - - Oxygen Saturation - - Inhaled Oxygen Concentration - - Weight 95 kg (209 lb 8 oz) 02/20/2018 12:52 PM [employer] Height - - Body Mass Index 35.96 02/20/2018 12:52 PM [employer] Plan of Treatment Health Maintenance Due Date Last Done Comments CERVICAL CANCER SCREENING 02/20/1977 BREAST CANCER SCREENING 02/20/2006 COLON CANCER SCREENING 02/20/2006 SHINGLES VACCINES (#1) 02/20/2006 INFLUENZA VACCINE 10/12/2017 Procedures Procedure Name Priority Date/Time Associated Comments Diagnosis CBC WITH PLATELET AND Routine 10/15/2017 12:00 Results for this DIFFERENTIAL AM CDT procedure are in the results section. POTASSIUM LEVEL Routine 10/15/2017 12:00 Results for this AM CDT procedure are in the results section. after 05/31/2017 Results CBC with platelet and differential (10/15/2017 12:00 AM CDT) WBC 6.5 3.8 - 10.8 Thousand/uL [facility] [place] RBC 4.08 3.80 - 5.10 Million/uL [facility] [place] HGB 12.1 11.7 - 15.5 g/dL [facility] [place] HCT 36.5 35.0 - 45.0 % [facility] [place] MCV 89.5 80.0 - 100.0 fL [facility] [place] MCH 29.7 27.0 - 33.0 pg [facility] [place] MCHC 33.2 32.0 - 36.0 g/dL [facility] [place] RDW 13.4 11.0 - 15.0 % [facility] [place] Platelet count 258 140 - 400 Thousand/uL [facility] [place] MPV 9.7 7.5 - 12.5 fL [facility] [place] Neutrophils, absolute 4,804 1,500 - 7,800 cells/uL [facility] [place] Lymphocytes, absolute 1,125 850 - 3,900 cells/uL [facility] [place] Monocytes, absolute 384 200 - 950 cells/uL [facility] [place] Eosinophils, absolute 130 15 - 500 cells/uL [facility] [place] Basophils, absolute 59 0 - 200 cells/uL [facility] [place] Neutrophils 73.9 % [facility] [place] Lymphocytes 17.3 % [facility] [place] Monocytes 5.9 % [facility] [place] Eosinophils 2.0 % [facility] [place] Basophils + RC 0.9 % [facility] [place] Narrative Performed At FASTING:YES [facility] FASTING: YES Resulting Agency Comment Performing Organization Information: Site ID: [id number] Name: [facility] Address: [address] [place] [id number] Director: Olena Bach Performing Organization Address [facility] Phone Number [facility] [place] [address] [place] [address] Potassium level (10/15/2017 12:00 AM CDT) Potassium 4.3 3.5 - 5.3 mmol/L [facility] [place] Narrative Performed At FASTING:YES [facility] FASTING: YES Resulting Agency Comment Performing Organization Information: Site ID: [id number] Name: [facility] Address: [address] [place] [address] Director: Olena Bach Performing Organization Address [facility] Phone Number [facility] [place] [address] [place] [address] after 05/31/2017 Insurance Payer Benefit Plan / Group Subscriber ID Type Phone Address BCBS BCBS CHOICE PPO/[employer] EM[employer] PPO xxxxxxxxxxxxxxx PPO ([place]) [place] [address] Advance Directives Patient has advance care planning documents on file. For more information, please contact:[place] [address]
[2018-06-01] MEDS ORDERED: NA CHLORIDE 0.9% 1,000 ML ONE (08:23)
[2018-06-01 09:14] VITALS: BMI 35.6
[2018-06-01 11:40] VITALS: TEMP 98.2
[2018-06-01 13:27] VITALS: BP 125/42; O2SAT 98
[2018-06-01 14:38] LABS: Hematocrit 27.6 % (36.0-45.0)
== END 2018-06-01 14:24 | disposition home or self-care (01) ==
LOC: DS 06:51
PROVIDERS: ATTEND Internal Medicine
PROC: 30233N1 Transfusion of Nonautologous Red Blood Cells into Peripheral Vein, Percutaneous Approach (ICD-10-PCS; principal; 2018-06-01)
DX: D64.9 Anemia, unspecified (principal)
CPT/HCPCS: 36415; 36430; 85014; 85018; 86850; 86900; 86901; P9016

== ENCOUNTER 2019-08-28 15:57 | Inpatient (IN) | payer BC, OTHER ==
[2019-08-28 17:06] LABS: Absolute Lymphocytes (CBC) 1.1 K/uL (0.7-4.9); Basophils % 0.8 % (0-1.3); Hematocrit 22.6 % (36.0-45.0); Lymphocytes % 12.4 % (15.3-44.8); MPV 7.9 fL (7.6-11.3); RBC Red Blood Cell Count 3.04 M/uL (3.86-4.86)
[2019-08-28 17:09] LABS: Protime INR 1.12
--- OUTSIDE RECORDS SUMMARY | 2019-08-28 17:14 | XMS REPORT | Clinical Summary ---
:1955 Author Organization [facility] [place] [facility] Address [address] [place] [address] Care Team Providers Name Role Phone Magalie Cadena Primary Care Provider Unavailable Allergies No Known [...] Date Former Smoker Cigarettes 1 25 Quit: 09/01/19 06 Smokeless Tobacco: Former User Tobacco Cessation: Counseling [...] Not on file Results Not on fileafter 08/27/2018 Insurance Payer Benefit Plan / Subscriber ID Type Phone Address Group BLUE CROSS/BLUE BCBS OS xxxxxxxxxxxxxxx PPO [phone] [address] SHIELD POS/PPO/[place] [address] Advance Directives For more information, please contact:[place] [address] [place], [place] [phone] Code Status Date Activated Date Inactivated Comments Full Code 01/18/2015 10:01 PM 01/24/2015 5:45 PM This code status was determined by: Patient
--- OUTSIDE RECORDS SUMMARY | 2019-08-28 17:14 | XMS REPORT | Continuity of Care Document ---
:1955 Author Organization [facility] t Address [address] [place] [address] Care Team Providers Name Role Phone Ajith Rodgers Primary Care Physician Unavailable Toby Robledo Attending Clinician Victoriano Anderson RN Attending Clinician Unavailable Adalberto Weiss MD Attending Clinician AJITH RODGERS Attending Clinician Unavailable Payers Payer Name Policy Type Policy Number Effective Date Expiration Date S irvin BCBSBCBS xxxxxxxxxxxxxxx 2016 [place] CHOICE 00:00:00 [employer] PPO/FEDERAL EMPL PPOxxxxxxxxxxx [id number] Problems Condition Condition Condition Status Onset Resolution Last Treating Co mments Source Name Details Category Date Date Treatment Clinician Date Insomnia Insomnia Disease Active [place] 08-16 Methodi 00:00: st 00 Intestinal Intestinal Disease Active [place] angiodyspl angiodyspl - [facility] tamara with tamara with 00:00: st bleeding bleeding 00 Iron Iron Disease Active [place] deficiency deficiency 3- Al thodi anemia due anemia due 00:00: st to chronic to chronic 00 blood loss blood loss GI GI Disease Active 2014-[address] [facility] [address] (gastroint (gastroint 03-20 Leanne kes - estinal estinal 00:00: Medical bleed) bleed) 00 Center Amnesia Problem Active 2019-08-26 Dennis marbin (finding) 00:24:54 l Amnesia Esdras (finding) Active Problem 08/26/2019 [facility] Anemia Problem Active 2019-08-26 Memor ia (disorder) 00:24:54 l Anemia Esdras (disorder) Active Problem 08/26/2019 [facility] Hyperlipid Problem Active 2019-08-26 M emoria emia 00:24:54 l (disorder) [place] n Hyperlipid emia (disorder) Active Problem 08/26/2019 [facility] Hypertensi Problem Active 2019-08-26 M emoria ve 00:24:54 l disorder, Esdras systemic Hypertensi arterial ve (disorder) disorder, systemic arterial (disorder) Active Problem 08/26/2019 [facility] Hypothyroi Problem Active 2019-08-26 M emoria dism 00:24:54 l (disorder) [place] n Hypothyroi dism (disorder) Active Problem 08/26/2019 [facility] Simple Problem Active 2019-08-26 Memor ia obesity 00:24:54 l (disorder) Simple Herm sandy obesity (disorder) Active Problem 08/26/2019 [facility] Transient Problem Active 2019-08-26 Me moria ischemic 00:24:54 l attack Esdras (disorder) Transient ischemic attack (disorder) Active Problem 08/26/2019 [facility] Allergies, Adverse Reactions, Alerts Allergy Allergy Status Severity Reaction(s) Onset Inactive Treating Comm ents Source Name Type Date Date Clinician No Known No Known Active Memori a Medicati Medicati l on on Esdras Allergie Allergie s s Family History Family Member Diagnosis Comments Start Date Stop Date Source Natural father Diabetes [facility] Natural father Hypertension [facility] Natural mother Diabetes [facility] Natural mother Hypertension [facility] Social History Social Habit Start Date Stop Date Quantity Comments Source Sex Assigned At [place] [facility] ethodist Social History 2019-08-23 2019-08-23 Flaquita moy 20:52:59 20:52:59 Alcohol intake 2018-02-20 2018-02-20 Current drinker [place] [facility] 00:00:00 00:00:00 of alcohol (finding) Cigarettes smoked 2017-05-20 2017-05-[address] [facility] - current (pack per 00:00:00 00:00:00 [facility] day) - Reported Cigarette 2017-05-20 2017-05-[address] [facility] - pack-years 00:00:00 00:00:00 [facility] Center Alcohol Comment 2016-05-17 2016-05-17 occ Jagdish Callahan ethodist 00:00:00 00:00:00 History of tobacco 2005-08-31 [facility] sm[facility] use [facility]00 [facility] Smoking Status Start Date Stop Date Source Never smoker Jagdish bolaños Former smoker 2017-05-20 00:00:00 2017-05-20 00:00:[address] [facility] Medications Ordered Filled Start Stop Current Ordering Indication Dosage Frequency Signature Comments Components Source Medication Medication Date Date Medication? Clinician (SIG) Name Name gabapentin Yes 300 mg, Dennis marbin 6-11 PO, BID, 0 l 20:54: Refill(s) Thyroxine Yes 75 Memoria 6-11 microgram, l 20:54: PO, Daily, [place] 0 Refill(s) Amitriptyli Yes 50 mg, PO, Memoria ne 6-11 Bedtime, 0 l 20:54: Refill(s) Amlodipine Yes 10 mg, PO, M emoria 6-11 Daily, 0 l 20:54: Refill(s) Losartan 2019-0 Yes PO, Daily, Mem oria 6-11 0 l 20:54: Refill(s) Hydrochloro Yes 1 tab, PO, Memoria thiazide 25 6-11 Daily, 0 l MG / 20:54: Refill(s) Losartan Potassium 100 MG Oral Tablet Octreotide Yes 30 mg, IM, M emoria 12 MG/ML 6-11 q4wk, # 1 l Injectable 20:54: ea, 0 [place] n Suspension 00 Refill(s) [Sandostati n] octreotide, Yes Intestinal Inject 30 [place] microsphere 2-11 angiodyspla mg into Methodi s 00:00: anna with the st (SandoSTATI 00 bleeding shoulder, N LAR thigh, or [place]) 30 buttocks mg every 28 suspension, days. extended rel recon ferrous Yes . [facility] St sulfate 325 1-29 [facility] - (65 FE) MG 00:00: Medical tablet [address] [place] [address] potassium Yes . [facility] chloride SA 1-29 [facility] - (K-DUR,KLOR 00:00: Medica l -CON) 20 00 Center MEQ tablet levothyroxi Yes 75ug QD Take 75 Noemí ston ne 3-06 mcg by Methodi (SYNTHROID, 14:50: mouth st LEVOXYL) 75 23 every mcg tablet morning. gabapentin Yes 300mg Q.5D Take 300 [place] (NEURONTIN) 3-06 mg by Methodi 300 mg 14:50: mouth 2 st capsule 23 (two) times a day. losartan-hy Yes 1{tbl} QD Take 1 [place] drochloroth 3-06 tablet by Met abigail iazide 14:50: mouth st (HYZAAR) 23 daily. 100-12.5 mg per tablet esomeprazol Yes 40mg QD Take 40 mg [place] e (NexIUM) 3-06 by mouth Metho di 40 MG 14:50: daily st capsule 23 before breakfast. potassium Yes 20meq Q.5D Take 20 [place] chloride 3-06 mEq by Methodi (KLOR-CON) 14:50: mouth 2 st 20 mEq 23 (two) packet times a day. amitriptyli Yes 100mg QD Take 100 [place] ne (ELAVIL) 3-06 mg by Methodi 50 MG 14:50: mouth st tablet 23 nightly. ferrous 2015-03 Yes TAKE ONE [place] sulfate 325 2-07 TABLET BY Met hayes (65 FE) MG 00:00: MOUTH st tablet 00 THREE TIMES A DAY WITH MEALS FOR 30 DAYS octreotide 2014-03 Yes 100ug Q.[id number] Inject [address] (SANDOSTATI 1-13 [id number] mL (100 [facility] - N) 100 00:00: 3D mcg total) Medic al mcg/mL Soln 00 subcutaneo Ce nter usly 3 (three) times daily. levothyroxi 2014-03 Yes 75ug QD Take [address] ne 1-07 mcg by [facility]ukes - (SYNTHROID, 21:23: mouth Medic al LEVOTHROID) 05 daily. Center 75 MCG tablet losartan-hy 2014-03 Yes 1{tbl} QD Take [address] drochloroth 1-07 tablet by Carlyn es - iazide 21:23: mouth Medical (HYZAAR) 05 daily. Center 100-25 mg per tablet gabapentin 2014-03 Yes 300mg Q.5D Take [address] (NEURONTIN) 1-07 mg by [facility]ukes - 300 MG 21:23: mouth 2 Medical capsule 05 (two) Center times daily. esomeprazol 2014-03 Yes 20mg QD Take [address] e (NEXIUM) 1-07 by mouth [facility] - 20 MG 21:23: daily. Medical capsule 05 [place] simvastatin 2014-03 Yes 40mg QD Take [address] (ZOCOR) 40 1-07 by mouth [facility]ukes - MG tablet 21:23: nightly. Medi shalonda [address] [place] [address] amitriptyli 2014-03 Yes 50mg QD Take [address] ne (ELAVIL) 1-07 by mouth Luke s - 50 MG 21:23: nightly. Medical tablet 05 Center Vital Signs Vital Name Observation Time Observation Value Comments Source Systolic (mm Hg) 2019-08-23 20:48:00 Dennis jeremy Dewitt Diastolic (mm Hg) 2019-08-23 20:48:00 [facility] orial [place] Heart Rate 2019-08-23 20:48:00 [facility] Respitory Rate 2019-08-23 20:48:00 [facility] Temperature Oral (F) 2019-08-23 20:48:00 97.6 F [facility] Height 2019-08-23 20:48:00 162.56 cm [facility] Weight 2019-08-23 20:48:00 [facility] BMI Calculated 2019-08-23 20:48:00 [facility] Procedures This patient has no known procedures. Plan of Care Planned Activity Planned Date Details Comments Source Future Scheduled 2019-10-13 INFLUENZA VACCINE [place] [facility] Test 00:00:00 [code = INFLUENZA VACCINE] Future Scheduled 2006-02-20 BREAST CANCER [facility] thodist Test 00:00:00 SCREENING [code = BREAST CANCER SCREENING] Future Scheduled 2006-02-20 COLONOSCOPY SCREENING [facility] Test 00:00:00 [code = COLONOSCOPY SCREENING] Future Scheduled 2006-02-20 SHINGLES VACCINES [place] [facility] Test 00:00:00 (#1) [code = SHINGLES VACCINES (#1)] Future Scheduled 1977-02-20 Screening for [facility] thodist Test 00:00:00 malignant neoplasm of cervix (procedure) [code = 258340628] Encounters Start End Encounter Admission Attending Care Care Encounter Source Date/Time Date/Time Type Type Clinicians Facility Department ID 2019-08-23 2019-08-23 Outpatient RACQUEL Robledo CASS [id number] 15:00:00 23:59:59 Jim 00 Toby Results Test Description Test Time Test Comments Results Result Sourc e Comments MM, STEREOTACTIC 2017-05-13 Reason for Addendum BeginsN#: BIOPSY, BREAST, 2 Exam:->r92.0 [id number]: LEFT 13:11:00 06/02/2017 Olivier Quinteros M.D. Pathology results are now available and demonstrate sclerosing adenosis.This is concordant with the imaging findings. Addendum [facility]#: [id number] - MM, STEREOTACTIC BIOPSY, BREAST, LEFTSTEREOTACTIC GUIDED [...] correct location, multiple specimens were obtained using BuildDirectIVA device. A clip was inserted into the [...] The imaged specimens include the calcification. Olivier Quinteros M.D. pth/:05/20/2017 14:16:43 Attending Technologist: Marisol BELLE(R)(M), [facility] Ship Wirer: Geovanna BELLE(R)(M), [facility] [id number] , STEREOTACTIC 2017-05-13 Reason for Addendum BeginsMRN#: BIOPSY, BREAST, 2 Exam:->Microcalcif [id number]: RIGHT 13:10:00 ications 06/02/2017 Olivier Quinteros M.D. Pathology results are now available and demonstrate intraductal papilloma with atypia. Addendum EndsMRN#: [id number] - MM, STEREOTACTIC BIOPSY, BREAST, RIGHTSTEREOTACTIC GUIDED [...] correct location, multiple specimens were obtained using BuildDirectIVA device. A clip was inserted into the [...] The imaged specimens includes the calcifications. Olivier Quinteros M.D. pth/:05/20/2017 14:11:25 Attending Technologist: Marisol BELLE(R)(M), [facility] Ship Wirer: Geovanna BELLE(R)(Sindy), [facility] [id number] UE EXAM 2017-05-12 Surgical Pathology 4 Report 11:08:00 Case: [id number] Authorizing Provider: Olivier Quinteros MD Collected: 05/20/2017 1640 Ordering Location: [facility] [place] Received: 05/20/2017 3193 Pathologist: Sabi Zuñiga MD Specimens: A) - [...] ASSOCIATED CALCIFICATIONS Signing Pathologist Direct Phone Line: [phone] ally signed by Sabi Zuñiga MD on 05/25/2017 at 11:08 AMMultiple levels (32 levels) have been performed to evaluate the biopsies. In the sections examined from both specimens, no carcinoma is identified.[id number] 6 o'clock breast calcifications, left upper breast [...] B1-B2. DB/ew A-B. Performed. MM, U/S, BREAST, Reason for MRN#: UNILATERAL, LEFT 9 Exam:->n65.1 [id number] - 14:40:00 MM, U/S, BREAST, UNILATERAL, LEFTULTRASOUND OF LEFT BREAST: 05/20/2017Comparison is made to exam dated: 05/20/2017 mammogram - [facility]. Color flow and real-time ultrasound [...] have been discussed with the patient. Olivier Quinteros M.D. pth/:05/20/2017 14:40:22 Ship Wirer: Sheela Michael, [facility] Ultrasound BI-RADS: 4b Suspicious abnormality - intermediate suspicion of malignancy 85062 , MAMMO, Reason for MRN#: SPECIMEN, 9 exam:->left breast [id number] - RADIOGRAPH, LEFT 14:17:00 asymmetry MM, MAMMO, SPECIMEN, RADIOGRAPH, LEFTSPECIMEN LEFT BREAST: 05/20/2017Multiple stereotactic guided biopsy specimens were imaged for the mass with calcifications located in the left breast at 1 o'clock middle to posterior depth. IMPRESSION: SPECIMENThe imaged specimens include the calcification. Olivier Quinteros M.D. pth/:05/20/2017 14:17:35 Attending Technologist: Marisol BELLE(R)(M), [facility] Ship Wirer: Geovanna BELLE(R)(Sindy), [facility] [id number] , DIGITAL, Reason for MRN#: MAMMO, 9 Exam:->r92.8 [id number] - DIAGNOSTIC, LEFT 14:15:00 MM, DIGITAL, MAMMO, INCLUDING CAD DIAGNOSTIC, LEFT [...] is indeterminate. An ultrasound is recommended. Olivier Quinteros M.D. pth/:05/20/2017 14:15:29 Attending Technologist: Marisol BELLE(R)(M), [facility] Ship Wirer: Geovanna BELLE(R)(M), [facility] Mammogram BI-RADS: 0 Indeterminate [id number] , MAMMO, Reason for MRN#: SPECIMEN, 9 exam:->Right [id number] - RADIOGRAPH, RIGHT 14:12:00 breast MM, MAMMO, SPECIMEN, calcifications RADIOGRAPH, RIGHTSPECIMEN RIGHT BREAST: 05/20/2017Multiple stereotactic guided biopsy specimens were imaged for the area of calcifications located in the right breast at 6 o'clock middle to posterior depth. IMPRESSION: SPECIMENThe imaged specimens includes the calcifications. Olivier Quinteros M.D. pth/:05/20/2017 14:12:01 Attending Technologist: Marisol BELLE(R)(M), [facility] Ship Wirer: Geovanna ARNOLDR)(M), [facility] [id number] , DIGITAL, left breast MRN#: UNILATERAL, 9 density/asymmetry [id number] - CONFER ROSAS, 14:12:00 MM, DIGITAL, MAMMO, LEFT UNILATERAL, CONFER INCLUDING CAD ROSAS, MAMMO, LEFT INCLUDING CADUNILATERAL LEFT DIGITAL PROBLEM SOLVING MAMMOGRAM POST-PROCEDURE IMAGING FOR MARKER PLACEMENT: 05/20/2017 There are scattered fibroglandular elements in the left breast that could obscure a lesion on mammography. The post procedure mammogram was performed on a separate mammography unit.A clip is placed at the biopsy site. IMPRESSION: POST PROCEDURE MAMMOGRAM FOR MARKER PLACEMENTAwait pathology results. Olivier Quinteros M.D. pth/:05/20/2017 14:12:38 Attending Technologist: Marisol BELLE(R)(Sindy), [facility] Ship Wirer: Geovanna ARNOLDR)(M), [facility] Mammogram BI-RADS: Post-procedure mammogram for marker placement [id number] , DIGITAL, Right breast MRN#: UNILATERAL, 9 calcifications [id number] - CONFER ROSAS, 14:09:00 MM, DIGITAL, MAMMO, RIGHT UNILATERAL, CONFER INCLUDING CAD ROSAS, MAMMO, RIGHT INCLUDING CADUNILATERAL RIGHT DIGITAL PROBLEM SOLVING MAMMOGRAM POST-PROCEDURE IMAGING FOR MARKER PLACEMENT: 05/20/2017 There are scattered fibroglandular elements in the right breast that could obscure a lesion on mammography. The post procedure mammogram was performed on a separate mammography unit.A clip is placed at the biopsy site. IMPRESSION: POST PROCEDURE MAMMOGRAM FOR MARKER PLACEMENTAwait pathology results. Olivier Quinteros M.D. pth/:05/20/2017 14:09:55 Attending Technologist: Marisol Ayala RT(R)(M), [facility] Ship Wirer: Geovanna BELLE(R)(M), [facility] Mammogram BI-RADS: Post-procedure mammogram for marker placement [id number]
--- OUTSIDE RECORDS SUMMARY | 2019-08-28 17:14 | XMS REPORT | Clinical Summary ---
:1955 Author Organization [facility] Address [address] [place] [address] Care Team Providers Name Role Phone Asked, No Pcp Primary Care Provider Unavailable Allergies No Known Allergies Medications Medication Sig Dispensed Refills Start Date End Date Status ferrous sulfate 325 (65 TAKE ONE TABLET 90 tablet 3 02/18/2016 Active FE) MG tablet BY MOUTH THREE TIMES A DAY WITH MEALS FOR 30 DAYS levothyroxine Take 75 mcg by 0 A ctive (SYNTHROID, LEVOXYL) 75 mouth every mcg tablet morning. gabapentin (NEURONTIN) Take 300 mg by 0 Active 300 mg capsule mouth 2 (two) times a day. losartan-hydrochlorothi Take 1 tablet by 0 Active azide (HYZAAR) 100-12.5 mouth daily. mg per tablet esomeprazole (NexIUM) Take 40 mg by 0 Active 40 MG capsule mouth daily before breakfast. potassium chloride Take 20 mEq by 0 Active (KLOR-CON) 20 mEq mouth 2 (two) packet times a day. amitriptyline (ELAVIL) Take 100 mg by 0 Active 50 MG tablet mouth nightly. octreotide,microspheres Inject 30 mg into 30 mg 0 04/24/19 19 Active (SandoSTATIN LAR [place]) the shoulder, 30 mg thigh, or suspension,extended rel buttocks every 28 reconIndications: days. Intestinal angiodysplasia with bleeding 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 Iron deficiency anemia due to chronic blood loss 05/17 Encounters Date Type Specialty Care Team Description 03/27/2019 Telephone Oncology Mita Anderson RN 02/05/2019 Telephone Oncology Neil Weiss MD 11/15/2018 Telephone Oncology Neil Weiss MD 10/26/2018 Telephone Oncology Mita Anderson RN after 08/27/2018 Social History Tobacco Use Types Packs/Day Years [...] CANCER SCREENING 02/20/1977 BREAST CANCER SCREENING 02/20/2006 COLONOSCOPY SCREENING 02/20/2006 SHINGLES VACCINES (#1) 02/20/2006 INFLUENZA VACCINE 10/13/2019 Results Not on fileafter 08/27/2018 Advance Directives For more information, please contact: [phone] Type Date Recorded Patient Under Ground Miner Explanati on Advance Directives, Living Will and Medical Power of Biologist
--- NOTE | 2019-08-28 17:31 | RAD REPORT ---
EXAM DESCRIPTION: CT - Head Brain Wo Cont - 08/28/2019 5:26 pm CLINICAL HISTORY: WEAKNESS Headache, drowsiness COMPARISON: No comparisons TECHNIQUE: All CT scans are performed using dose optimization technique as appropriate and may inclu de automated exposure control or mA/KV adjustment according to patient size. FINDINGS: No intracranial hemorrhage, hydrocephalus or extra-axial fluid collection.No areas of brai n edema or evidence of midline shift. The paranasal sinuses and mastoids are clear. The calvarium is intact. IMPRESSION: No acute intracranial abnormality.
[2019-08-28 17:49] LABS: ALT/SGPT 18 U/L (12-78); AST/SGOT 17 U/L (15-37); Albumin 3.3 g/dL (3.4-5.0); Alkaline Phosphatase 112 U/L (45-117); BUN Blood Urea Nitrogen 6 mg/dL (7-18); Bicarbonate 26 mmol/L (21-32); Bilirubin Direct < 0.1 mg/dL (0-0.2); Bilirubin Total 0.2 mg/dL (0.2-1.0); Glucose Level 177 mg/dL (74-106); Magnesium 2.2 mg/dL (1.8-2.4); NT PRO-BNP 198 pg/mL (<125); Potassium 3.4 mmol/L (3.5-5.1); Protein, Total 7.4 g/dL (6.4-8.2); Sodium Level 134 mmol/L (136-145); Troponin (Emerg Dept Use Only) < 0.02 ng/mL (0.0-0.045)
--- NOTE | 2019-08-28 18:05 | RAD REPORT ---
EXAM DESCRIPTION: RAD - Chest Single View - 08/28/2019 6:01 pm CLINICAL HISTORY: weakness, anemia Chest pain. COMPARISON: Chest Single View dated 03/02/2017; Chest Single View dated 06/21/2015; Chest Single View dated 06/19/2015; CHEST SINGLE VIEW dated 04/08/2015 FINDINGS: Portable technique limits examination quality. The lungs are grossly clear. The heart is normal in size. No displaced fractures. IMPRESSION: No acute intrathoracic process suspected.
--- NOTE | 2019-08-28 18:27 | ER ---
Nurse's Notes [facility] Name: Charlee Johnson Age: 64 yrs Sex: Female : 1955 Arrival Date: 08/28/2019 Time: 15:59 Bed 13 Private MD: Bulmaro Quinn R Diagnosis: Gastrointestinal hemorrhage, unspecified;Anemia, unspecified Presentation: 08/27 16:05 Chief complaint: Patient states: Left sided numbness and tremors for 3 weeks, worse for ll1 past 3 days. + sleepiness. Sent her in for r/o stroke. Coronavirus screen: Proceed with normal triage. Patient denies a cough. Patient denies shortness of breath or difficulty breathing. Patient denies measured and/or subjective temperature greater than 100.4F prior to today's visit. Patient denies travel on a cruise ship or to a country the [facility] currently lists as an affected area. Patient denies contact with known and/or suspected case of COVID-19. Ebola Screen: Patient denies travel to an Ebola-affected area in the 21 days before illness onset. Initial Sepsis Screen: Does the patient meet any 2 criteria? No. Patient's initial sepsis screen is negative. Risk Assessment: Do you want to hurt yourself or someone else? Patient reports no desire to harm self or others. Onset of symptoms was August 13, 2019. 16:05 Method Of Arrival: Wheelchair ll1 16:05 Acuity: ZACH 3 ll1 17:13 Initial Sepsis Screen: Does the patient have a suspected source of infection? No. sv Patient's initial sepsis screen is negative. Historical: - Allergies: 16:08 lactose intolerant; ll1 16:08 Aspirin; ll1 16:08 Ibuprofen; ll1 - Home Meds: 18:22 gabapentin 300 mg Oral cap 1 cap twice a day for Neuropathic Pain [Active]; sv levothyroxine 75 mcg tab 1 tab once daily [Active]; simvastatin 40 mg Oral tab 1 tab once daily [Active]; amitriptyline 50 mg Oral tab 2 tabs once daily [Active]; amlodipine 10 mg tab 1 tab once daily [Active]; losartan-hydrochlorothiazide 100-25 mg Oral tab 1 tab once daily [Active]; sandostatin lar 30mg depot IM kit monthly (Last Dose: 08/26/2019) [Active]; - PMHx: 16:08 Anemia; Heart Murmur; GI Bleed; Hypertension; ll1 - Immunization history:: Adult Immunizations up to date, Flu vaccine is not up to date. - Social history:: Smoking status: Patient denies any tobacco usage or history of. Patient/guardian denies using alcohol, street drugs, tobacco products. Screenin:12 Abuse screen: Denies threats or abuse. Denies injuries from another. Nutritional sv screening: No deficits noted. Tuberculosis screening: No symptoms or risk factors identified. Fall Risk None identified. Assessment: 16:15 General: Appears in no apparent distress. comfortable, well groomed, well developed, sv Behavior is calm, cooperative, appropriate for age. Pain: Denies pain. Neuro: Level of Consciousness is awake, alert, obeys commands, Oriented to person, place, time, situation, Moves all extremities. Full function Gait is steady, Speech is normal. Cardiovascular: Patient's skin is warm and dry. Pulses are 3+ in right brachial artery and left brachial artery. Respiratory: Airway is patent Respiratory effort is even, unlabored, Respiratory pattern is regular, symmetrical. Derm: Skin is intact, Skin is pink, warm \T\ dry. Musculoskeletal: Range of motion: intact in all extremities, Reports weakness in left arm and left leg for about the past month she has been having these episodes of jerky like movements to the left arm and leg when she feels like she is going to pass out. Pt has hx of iron deficiency anemia and is taking Octreotide injections monthly. 17:14 Reassessment: Patient appears in no apparent distress at this time. No changes from sv previously documented assessment. Patient and/or family updated on plan of care and expected duration. Pain level reassessed. Patient is alert, oriented x 3, equal unlabored respirations, skin warm/dry/pink. 18:34 Reassessment: Patient appears in no apparent distress at this time. No changes from sv previously documented assessment. Patient and/or family updated on plan of care and expected duration. Pain level reassessed. Patient is alert, oriented x 3, equal unlabored respirations, skin warm/dry/pink. 19:28 Reassessment: Reassessment: Patient and/or family updated on plan of care and expected ao duration. Pain level reassessed. Patient is alert, oriented x 3, equal unlabored respirations, skin warm/dry/pink. 20:30 Reassessment: Patient appears in no apparent distress at this time. Patient and/or ao family updated on plan of care and expected duration. Pain level reassessed. Patient is alert, oriented x 3, equal unlabored respirations, skin warm/dry/pink. Waiting on Room assignment. 21:30 Reassessment: Patient is ER Hold. See [facility] for documentation. ao Vital Signs: 16:05 BP 133 / 64; Pulse 85; Resp 16; Temp 98.3; Pulse Ox 99% ; Pain 0/10; ll1 17:08 BP 125 / 49; Pulse 78 MON; Resp 15; Pulse Ox 99% ; sv 18:19 BP 147 / 56; Pulse 80; Resp 16; Temp 98.4(TE); Pulse Ox 100% on R/A; mh5 19:01 BP 143 / 63; Pulse 87; Resp 18; Pulse Ox 100% ; sv 17:08 Sinus Rhythm sv ED Course: 15:59 Patient arrived in ED. ag5 16:01 Bulmaro Quinn MD is Private Physician. ag5 16:07 Triage completed. ll1 16:08 Arm band placed on Patient placed in an exam room, on a stretcher. ll1 16:10 Charlee Reid, URIEL is Primary Nurse. sv 16:12 Shashank Ponce NP is PHCP. pm1 16:12 Paul Mesa MD is Attending Physician. pm1 16:12 Patient has correct armband on for positive identification. Bed in low position. Call sv light in reach. 16:32 Missed attempt(s): 22 gauge in left wrist. Bleeding controlled, band aid applied, sv catheter tip intact. 16:35 Missed attempt(s): 22 gauge in left forearm. Bleeding controlled, band aid applied, sv catheter tip intact. 16:40 Inserted saline lock: 20 gauge in right antecubital area, using aseptic technique. sv Blood collected. Flushed right antecubital with 5 ml normal saline. 17:06 EKG done, by ED staff, reviewed by Shashank Ponce NP. 5 17:07 monitoring tech on. Pulse ox on. NIBP on. mh5 17:[address] via wheelchair. sv 17:25 CT Head Brain wo Cont In Process Unspecified. EDMS 17:56 Served as a ground transportation operator during rectal exam. mh5 17:57 XRAY Chest (1 view) Sent. 18:01 XRAY Chest (1 view) In Process Unspecified. EDMS 18:09 Urine collected: clean catch specimen, clear. 5 18:15 Ptt, Activated Sent. 5 18:27 Brandy Bowmanand is Hospitalizing Provider. pm1 18:46 Inserted saline lock: 24 gauge in left hand, using aseptic technique. hb 18:55 Consent for blood and/or blood product transfusion explained by staff, explained by physician, signed by patient. 19:07 Report given to Jamie TREVINO. 19:10 Primary Nurse role handed off by Charlee Reid RN 19:17 Jamie Cleveland RN is Primary Nurse. ao 22:10 Patient admitted, IV remains in place. ao Administered Medications: 09:35 Drug: Benadryl 12.5 mg Route: IVP; Site: right antecubital; ao 22:35 Follow up: Response: No adverse reaction ao 18:58 Drug: ProTONIX 40 mg Route: IVP; Site: left hand; sv 22:35 Follow up: Response: No adverse reaction ao 19:30 Drug: ProTONIX 8 mg/hr Route: IV; Rate: 25 ml/hr; Site: left hand; ao 22:35 Follow up: IV Status: Infusion continued upon admission ao 19:40 Drug: Solu-CORTEF 50 mg Route: IVP; Site: left antecubital; ao 22:35 Follow up: Response: No adverse reaction ao Outcome: 18:27 Decision to Hospitalize by Provider. pm1 22:10 Admitted to ER Hold. Please see [facility] for further documentation. ao 22:10 Condition: stable 22:10 Instructed on the need for admit. 08/28 07:34 Patient left the ED. em1 Signatures: Dispatcher [employer] EDNV Charlee Reid RN RN sv Gay, Steven, RN RN sg Martinez, Eric em1 Jamie Cleveland RN RN ao Marinas, Patrick, MOLDING MACHINE OPERATOR MOLDING MACHINE OPERATOR pm1 Chacha Kyle RN RN hb Martinez, Maria 5 Peter Rangel 5 Betty Mustafa RN RN ll1 Corrections: (The following items were deleted from the chart) 08/27 17:15 16:15 Musculoskeletal: Range of motion: intact in all extremities, Reports for about sv the past month she has been having these episodes of jerky like movements to the left arm and leg when she feels like she is going to pass out. Pt has hx of iron deficiency anemia and is taking Octreotide injections monthly. sv 22:17 19:28 Reassessment: rosario sharma
--- NOTE | 2019-08-28 18:27 | EDPHYS ---
Physician Documentation [facility] Name: Charlee Johnson Age: 64 yrs Sex: Female : 1955 Arrival Date: 08/28/2019 Time: 15:59 Bed 13 Private MD: Bulmaro Quinn R ED Physician Paul Mesa HPI: 08/27 17:05 This 64 yrs old Female presents to ER via Wheelchair with complaints of pm1 General Weakness. 17:05 The patient presents to the emergency department with weakness of the entire body, pm1 generalized weakness. Onset: The symptoms/episode began/occurred 3 week(s) ago. Context: occurred at home, occurred while the patient was walking. Associated signs and symptoms: Pertinent positives: generalized weakness for 3 weeks. When patient tries to walk she feels weaker with her left arm and leg and her leg gives way, Pertinent negatives: fever, headache, paresthesias, nausea/vomiting, chest pain, shortness of breath. Patient with a history of iron deficiency anemia and GI bleeding with multiple blood transfusions. She has a hematology that treats her with monthly octreotide IM injections. Currently not taking any blood thinners. Not currently taking iron supplementation. Historical: - Allergies: 16:08 lactose intolerant; ll1 16:08 Aspirin; ll1 16:08 Ibuprofen; ll1 - Home Meds: 18:22 gabapentin 300 mg Oral cap 1 cap twice a day for Neuropathic Pain [Active]; sv levothyroxine 75 mcg tab 1 tab once daily [Active]; simvastatin 40 mg Oral tab 1 tab once daily [Active]; amitriptyline 50 mg Oral tab 2 tabs once daily [Active]; amlodipine 10 mg tab 1 tab once daily [Active]; losartan-hydrochlorothiazide 100-25 mg Oral tab 1 tab once daily [Active]; sandostatin lar 30mg depot IM kit monthly (Last Dose: 08/26/2019) [Active]; - PMHx: 16:08 Anemia; Heart Murmur; GI Bleed; Hypertension; ll1 - Immunization history:: Adult Immunizations up to date, Flu vaccine is not up to date. - Social history:: Smoking status: Patient denies any tobacco usage or history of. Patient/guardian denies using alcohol, street drugs, tobacco products. ROS: 17:05 Neck: Negative for injury, pain, and swelling, Cardiovascular: Negative for chest pain, pm1 palpitations, and edema, Respiratory: Negative for shortness of breath, cough, wheezing, and pleuritic chest pain, Abdomen/GI: Negative for abdominal pain, nausea, vomiting, diarrhea, and constipation, Back: Negative for injury and pain, MS/Extremity: Negative for injury and deformity, Skin: Negative for injury, rash, and discoloration. 17:05 : Negative for injury, bleeding, discharge, and swelling. 17:05 Neuro: Positive for weakness, a left sided tremor, Negative for altered mental status, dizziness, headache, numbness, tingling. Exam: 17:05 Constitutional: This is a well developed, well nourished patient who is awake, alert, pm1 and in no acute distress. Head/Face: Normocephalic, atraumatic. 17:05 Eyes: Pupils equal round and reactive to light, extra-ocular motions intact. Lids and lashes normal. Conjunctiva and sclera are non-icteric and not injected. Cornea within normal limits. Periorbital areas with no swelling, redness, or edema. ENT: Nares patent. No nasal discharge, no septal abnormalities noted. Tympanic membranes are normal and external auditory canals are clear. Oropharynx with no redness, swelling, or masses, exudates, or evidence of obstruction, uvula midline. Mucous membranes moist. Neck: Trachea midline, no thyromegaly or masses palpated, and no cervical lymphadenopathy. Supple, full range of motion without nuchal rigidity, or vertebral point tenderness. No Meningismus. Chest/axilla: Normal chest wall appearance and motion. Nontender with no deformity. No lesions are appreciated. 17:05 Back: No spinal tenderness. No costovertebral tenderness. Full range of motion. Skin: Warm, dry with normal turgor. Normal color with no rashes, no lesions, and no evidence of cellulitis. MS/ Extremity: Pulses equal, no cyanosis. Neurovascular intact. Full, normal range of motion. 17:05 Cardiovascular: Exam negative for acute changes, Rate: normal, Rhythm: regular, Pulses: no pulse deficits are appreciated, Edema: is not appreciated. 17:05 Respiratory: Exam negative for acute changes, respiratory distress, shortness of breath. 17:05 Abdomen/GI: Exam negative for acute changes, Inspection: abdomen appears normal, Bowel sounds: normal, Palpation: abdomen is soft and non-tender, in all quadrants, mass, is not appreciated, rebound tenderness, is not appreciated. 17:05 Neuro: Orientation: is normal, Mentation: is normal, Memory: is normal, Cranial nerves: CN II- XII are normal as tested, Motor: moves all fours, strength is normal, strength is 5/5 in all extremities, Sensation: is normal, no obvious gross deficits. 17:16 Abdomen/GI: Rectal exam: rectal tone normal, Stool: guaiac positive, black, pm1 hemorrhoid(s), are not appreciated, mass, is not appreciated, tenderness, is not appreciated, [employer] overhead door technician. Vital Signs: 16:05 BP 133 / 64; Pulse 85; Resp 16; Temp 98.3; Pulse Ox 99% ; Pain 0/10; ll1 17:08 BP 125 / 49; Pulse 78 MON; Resp 15; Pulse Ox 99% ; sv 18:19 BP 147 / 56; Pulse 80; Resp 16; Temp 98.4(TE); Pulse Ox 100% on R/A; mh5 19:01 BP 143 / 63; Pulse 87; Resp 18; Pulse Ox 100% ; sv 17:08 Sinus Rhythm sv MDM: 16:12 Patient medically screened. pm1 18:00 Physician consultation: Shen Bowman DO regarding admission, patient's condition, pm1 Discussed with Jun. Requested consult with her GI. 18:10 Physician consultation: Toby Jean MD was called at 18:06, was contacted at 18:06, pm1 regarding consult, patient's condition, and will see patient tomorrow, requests consent for EGD and PTT. 18:25 Data reviewed: vital signs. Data interpreted: Pulse oximetry: on room air is 100 %. pm1 Interpretation: normal. Counseling: I had a detailed discussion with the patient and/or guardian regarding: the historical points, exam findings, and any diagnostic results supporting the discharge/admit diagnosis, lab results, radiology results, the need for further work-up and treatment in the hospital. 08/27 16:20 Order name: Basic Metabolic Panel; Complete Time: 17:59 pm1 08/27 16:20 Order name: CBC with Diff; Complete Time: 17:33 pm1 08/27 16:20 Order name: LFT's; Complete Time: 17:59 pm1 08/27 16:20 Order name: Magnesium; Complete Time: 17:59 pm1 08/27 16:20 Order name: NT PRO-BNP; Complete Time: 17:59 pm1 08/27 16:20 Order name: PT-INR; Complete Time: 17:33 pm1 08/27 16:20 Order name: Troponin (emerg Dept Use Only); Complete Time: 17:59 pm1 08/27 16:20 Order name: Type And Screen pm1 08/27 18:05 Order name: Urine Dipstick--Ancillary (enter results); Complete Time: 19:39 eb 08/27 18:08 Order name: Ptt, Activated; Complete Time: 18:33 pm1 08/27 18:16 Order name: Bb Add On eb 08/27 18:24 Order name: Packed RBCs (Additional Unit) EDMS 08/27 18:26 Order name: Occult Blood--Ancillary eb 08/27 19:26 Order name: Basic Metabolic Panel EDMS 08/27 16:20 Order name: XRAY Chest (1 view); Complete Time: 18:33 pm1 08/27 16:20 Order name: CT Head Brain wo Cont; Complete Time: 17:39 pm1 08/27 19:26 Order name: Basic Metabolic Panel EDMS 08/27 19:26 Order name: CBC with Automated Diff EDMS 08/27 19:26 Order name: CBC with Automated Diff EDMS 08/27 19:26 Order name: Hematocrit EDMS 08/27 19:26 Order name: Hematocrit; Complete Time: 23:13 EDMS 08/27 19:26 Order name: Hematocrit EDMS 08/27 19:26 Order name: Hemoglobin EDMS 08/27 19:26 Order name: Hemoglobin; Complete Time: 23:13 EDMS 08/27 19:26 Order name: Hemoglobin EDMS 08/27 19:26 Order name: Protime (+INR) EDMS 08/27 19:26 Order name: Protime (+INR) EDMS 08/27 19:26 Order name: PTT, Activated Partial Thromb EDMS 08/27 19:26 Order name: PTT, Activated Partial Thromb EDMS 08/28 05:16 Order name: Manual Differential EDMS 08/27 16:20 Order name: EKG; Complete Time: 16:22 pm1 08/27 16:20 Order name: Cardiac monitoring; Complete Time: 17:01 pm08/27 16:20 Order name: EKG - Nurse/Tech; Complete Time: 17:01 pm08/27 16:20 Order name: IV Saline Lock; Complete Time: 17:01 pm08/27 16:20 Order name: Labs collected and sent; Complete Time: 17:01 pm08/27 16:20 Order name: O2 Per Protocol; Complete Time: 17:01 pm08/27 16:20 Order name: O2 Sat Monitoring; Complete Time: 17:01 pm08/27 16:20 Order name: Urine Dipstick-Ancillary (obtain specimen); Complete Time: 18:09 pm08/27 18:01 Order name: Transfuse; Complete Time: 22:35 pm08/27 19:25 Order name: CONS Pharmacy Consult EDMS 08/27 19:25 Order name: CONS Physician Consult EDMS 08/27 19:25 Order name: EKG Electrocardiogram EDMS 08/27 19:25 Order name: EKG Electrocardiogram EDMS 08/27 19:25 Order name: EKG Electrocardiogram EDMS 08/27 19:25 Order name: EKG Electrocardiogram EDMS 08/27 19:25 Order name: EKG Electrocardiogram EDMS 08/27 19:25 Order name: EKG Electrocardiogram EDMS 08/27 19:25 Order name: EKG Electrocardiogram EDMS 08/27 19:25 Order name: EKG Electrocardiogram EDMS 08/27 19:25 Order name: EKG Electrocardiogram EDMS 08/27 19:25 Order name: EKG Electrocardiogram EDMS 08/27 19:25 Order name: EKG Electrocardiogram EDMS 08/27 19:28 Order name: NPO EDMS Administered Medications: 09:35 Drug: Benadryl 12.5 mg Route: IVP; Site: right antecubital; ao 22:35 Follow up: Response: No adverse reaction ao 18:58 Drug: ProTONIX 40 mg Route: IVP; Site: left hand; sv 22:35 Follow up: Response: No adverse reaction ao 19:30 Drug: ProTONIX 8 mg/hr Route: IV; Rate: 25 ml/hr; Site: left hand; ao 22:35 Follow up: IV Status: Infusion continued upon admission ao 19:40 Drug: Solu-CORTEF 50 mg Route: IVP; Site: left antecubital; ao 22:35 Follow up: Response: No adverse reaction ao Disposition: 08/28/19 18:27 Hospitalization ordered by Shen Bowman for Inpatient Admission. Preliminary diagnosis are Gastrointestinal hemorrhage, unspecified, Anemia, unspecified. - Bed requested for Telemetry/MedSurg (Inpatient). - Status is Inpatient Admission. em1 - Condition is Stable. - Problem is new. - Symptoms have improved. Addendum: 08/30/2019 13:21 Co-signature as Attending Physician, Paul Mesa MD I agree with the assessment and c sethi plan of care. Signatures: Dispatcher [employer] EDMS Charlee Reid, RN Paul Yi MD MD cha Martinez, Eric em1 Fatoumata Sims RN RN tl1 Jamie Cleveland RN RN Shashank Zheng, JESUS ALBERTO BORING MACHINE OPERATOR pm1 Betty Mustafa RN RN ll1 Corrections: (The following items were deleted from the chart) 08/27 20:58 18:27 Hospitalization Ordered by Shen Bowman DO for Inpatient Admission. Preliminary tl1 diagnosis is Gastrointestinal hemorrhage, unspecified; Anemia, unspecified. Bed requested for Telemetry/MedSurg (Inpatient). Status is Inpatient Admission. Condition is Stable. Problem is new. Symptoms have improved. pm1 21:21 18:01 Physician consultation: Toby Jean MD was called at 18:06, was contacted at pm1 18:06, regarding consult, patient's condition, and will see patient tomorrow, requests consent for EGD and PTT, pm1 08/28 06:08 08/27 20:58 08/28/2019 18:27 Hospitalization Ordered by Shen Bowman DO for Inpatient tl1 Admission. Preliminary diagnosis is Gastrointestinal hemorrhage, unspecified; Anemia, unspecified. Bed requested for [facility] ER HOLD. Status is Inpatient Admission. Condition is Stable. Problem is new. Symptoms have improved. tl1 08/28 07:34 06:08 08/28/2019 18:27 Hospitalization Ordered by Shen Bowman DO for Inpatient em1 Admission. Preliminary diagnosis is Gastrointestinal hemorrhage, unspecified; Anemia, unspecified. Bed requested for Telemetry/MedSurg (Inpatient). Status is Inpatient Admission. Condition is Stable. Problem is new. Symptoms have improved. tl1
[2019-08-28] MEDS ORDERED: PANTOPRAZOLE 40 MG INJ ONE (18:35)
[2019-08-28 19:11] LABS: Urine Blood NEGATIVE (NEG); Urine Glucose NEGATIVE (NEG); Urine Protein NEGATIVE (NEG); Urine Specific Gravity 1.015 (1.005-1.030); Urine pH 6.5 (5.0-7.0)
[2019-08-28] MEDS ORDERED: DIPHENHYDRAMINE 50 MG/ML VIAL ONE (19:14)
[2019-08-28] MEDS ORDERED: METHYLPREDNISOLONE 125 MG INJ ONE (19:14)
[2019-08-28] MEDS ORDERED: NA CHLORIDE 0.9% 100 ML IV ONE (19:15)
[2019-08-28] MEDS ORDERED: ONDANSETRON 4 MG/2 ML VIAL IV PRN (19:21)
[2019-08-28] MEDS ORDERED: ACETAMINOPHEN 500 MG TAB PO PRN (19:21)
[2019-08-28] MEDS ORDERED: MORPHINE 2 MG/ML SYR IV PRN (19:21)
[2019-08-28] MEDS ORDERED: HYDROCORTISONE SUC 100 MG INJ ONE (19:27)
[2019-08-28] MEDS: NA CHLORIDE 0.9% 1,000 ML IV SCH (20:00)
[2019-08-28] MEDS ORDERED: NA CHLORIDE 0.9% 250 ML IV SCH (20:00)
[2019-08-28] MEDS ORDERED: NA CHLORIDE 0.9% 250 ML ONE (22:54)
[2019-08-28 23:11] LABS: Hematocrit 28.1 % (36.0-45.0)
[2019-08-29 01:36] VITALS: BMI 32.0
[2019-08-29 04:08] LABS: Absolute Lymphocytes (CBC) 0.8 K/uL (0.7-4.9); Basophils % 0.7 % (0-1.3); Hematocrit 28.3 % (36.0-45.0); Lymphocytes % 8.2 % (15.3-44.8); MPV 8.1 fL (7.6-11.3); RBC Red Blood Cell Count 3.63 M/uL (3.86-4.86)
[2019-08-29 04:10] LABS: Protime INR 1.18
[2019-08-29 04:15] LABS: BUN Blood Urea Nitrogen 5 mg/dL (7-18); Bicarbonate 27 mmol/L (21-32); Glucose Level 177 mg/dL (74-106); Potassium 3.8 mmol/L (3.5-5.1); Sodium Level 137 mmol/L (136-145)
[2019-08-29] MEDS: PANTOPRAZOLE INJ 80 MG in NA CHLORIDE 0.9% 250 ML IV SCH ×4 (05:00→23:51)
[2019-08-29] MEDS ORDERED: NA CHLORIDE 0.9% 1,000 ML ONE (05:01)
[2019-08-29] MEDS: NA CHLORIDE 0.9% 1,000 ML IV SCH ×3 (05:14→20:13)
[2019-08-29 05:16] LABS: Anisocytosis 1+; Blood Morphology Comment NOTED (NOT SEEN); Hypochromasia 1+; Ovalocytes 1+; Platelet Estimate ADEQ
--- NOTE | 2019-08-29 06:26 | EKG ---
Test Date: 2019-08-28 Test Time: 16:57:39 Sand Temperer: CHIP MEASUREMENT RESULTS: Intervals: Rate: 80 FL: 194 QRSD: 116 QT: 406 QTc: 468 [place]: P: 65 FL: 194 QRS: 65 T: 166 INTERPRETIVE STATEMENTS: Normal sinus rhythm Possible Left atrial enlargement ST & T wave abnormality, consider inferolateral ischemia Abnormal ECG Compared to ECG 03/05/2018 10:15:23 Possible ischemia now present Myocardial infarct finding no longer present ST (T wave) deviation still present Electronically Signed On 08-29-19 06:24:25 CDT by Jae Catherine
--- NOTE | 2019-08-29 07:55 | P.HP ---
Certification for Inpatient Patient admitted to: Inpatient With expected LOS: >2 Midnights Patient will require the following post-hospital care: None Practitioner: I am a practitioner with admitting privileges, knowledge of patient current condition, hospital course, and medical plan of care. Services: Services provided to patient in accordance with Admission requirements found in Title 42 Section 412.3 of the Code of Federal Regulations Patient History Date of Service: 08/28/19 Reason for admission: GI bleeding History of Present Illness: Patient is a 64-year-old female with a history of angiodysplasia of the small intestine who presents to the hospital with severe anemia. Patient's hemoglobin came back at 7.0. Patient will need a blood transfusion. Patient follows up with local gastroenterology & gets octreotide injections monthly. Patient came into the hospital for further evaluation. Allergies aspirin Adverse Reaction (Verified 03/02/17 20:38) Nausea/Vomiting ibuprofen Adverse Reaction (Verified 03/02/17 20:38) Nausea/Vomiting Lactose intolerant Allergy (Mild, Uncoded 03/05/18 13:13) Unknown Home Medications: Amitriptyline [Elavil] 100 mg PO BEDTIME 08/29/19 Amlodipine [Norvasc] 10 mg PO DAILY 08/29/19 Gabapentin [Neurontin] 300 mg PO BID 08/29/19 Levothyroxine [Synthroid] 75 mcg PO [id number] 08/29/19 Losartan/Hydrochlorothiazide [Losartan-Hctz 100-25 mg Tab] 1 tab PO DAILY 08/29/19 Octreotide [Sandostatin] 30 mg IM DIRECTED 08/29/19 Simvastatin 40 mg PO DAILY 08/29/19 - Past Medical/Surgical History Diabetic: No -: Hyperlipidemia -: Hypertension -: Hypothyroidism -: Neuropathy -: Hemmorrhoids -: Iron Deficiency -: Anemia -: lower GI bleed -: syncope -: Aortic stenosis -: Possible angio dysplasia -: Tubal -: Hysterectomy -: foot surgery x 2 on left foot - Family History Father Medical History: Heart disease, Hypertension, Diabetes Notes: pacemaker, valve replacement Mother Medical History: GI disease, Other (see notes) Notes: asthma, allergies, lower colon infection in past - Social History Smoking Status: Former smoker Alcohol use: Yes CD- Drugs: No Caffeine use: Yes Review of Systems 10-point ROS is otherwise unremarkable Physical Examination - Vital Signs Temperature: 98.1 F Blood Pressure: 138/82 Pulse: 79 Respirations: 16 Pulse Ox (%): 99 - Physical Exam General: Alert, In no apparent distress, Oriented x3 HEENT: Atraumatic, PERRLA, Mucous membr. moist/pink, EOMI, Sclerae nonicteric Neck: Supple, 2+ carotid pulse no bruit, No LAD, Without JVD or thyroid abnormality Respiratory: Clear to auscultation bilaterally, Normal air movement Cardiovascular: Regular rate/rhythm, Normal S1 S2, No murmurs Gastrointestinal: Normal bowel sounds, Soft and benign, Non-distended, No tenderness Musculoskeletal: No clubbing, No swelling, No tenderness Integumentary: No rashes Neurological: Normal gait, Normal speech, Normal strength at 5/5 x4 extr, Normal tone, Sensation intact, Cranial nerves 3-12 intact, Normal affect Lymphatics: No axilla or inguinal lymphadenopathy - Studies Laboratory Data (last 24 hrs) 08/28/19 16:40: APTT 35.8 08/28/19 16:40: PT 13.2 H, INR 1.12 08/28/19 16:40: WBC 9.0, Hgb 7.0 L*, Hct 22.6 L, Plt Count 273 08/28/19 16:40: Sodium 134 L, Potassium 3.4 L, BUN 6 L, Creatinine 0.73, Glucose 177 H, Magnesium 2.2, Total Bilirubin 0.2, AST 17, ALT 18, Alkaline Phosphatase 112 Assessment & Plan - Problems (Diagnosis) (1) Angiodysplasia of small intestine Current Visit: Yes Status: Acute (2) Anemia of chronic disease Onset Date: 06/23/15 Current Visit: No Status: Acute (3) GIB (gastrointestinal bleeding) Onset Date: 12/02/17 Current Visit: No Status: Acute (4) Near syncope Onset Date: 06/20/15 Current Visit: No Status: Acute (5) Severe anemia Onset Date: 08/13/14 Current Visit: No Status: Acute (6) Hypertension Current Visit: Yes Status: Acute (7) Aortic stenosis Current Visit: Yes Status: Acute - Plan Plan: 1. Continue with IV hydration and PPI drip 2. Monitor H&H closely 3. Continue with pain control 4. NPO; diet per GI recommendations 5. GI consultation 6. Strict blood pressure control 7. GI and DVT prophylaxis Discharge Plan: Home Plan to discharge in: 48 Hours - Advance Directives Does patient have a Living Will: No Does patient have a Durable POA for Healthcare: No - Code Status/Comfort Care Code Status Assessed: Yes Code Status: Full Code Critical Care: No Time Spent Managing PTS Care (In Minutes): 45
--- NOTE | 2019-08-29 07:56 | P.PN ---
Subjective Date of Service: 08/29/19 Patient is doing much better today. Maybe start diet if okay with GI. Outpatient colonoscopy. Patient recently had an EGD and does not feel she needs another intervention at this time. Will discuss the case with Gastroenterology and see what they recommend. Review of Systems 10-point ROS is otherwise unremarkable Physical Examination - Vital Signs Temperature: 98.1 F Blood Pressure: 138/82 Pulse: 79 Respirations: 16 Pulse Ox (%): 99 - Physical Exam General: Alert, In no apparent distress, Oriented x3 HEENT: Atraumatic, PERRLA, EOMI Neck: Supple, JVD not distended Respiratory: Clear to auscultation bilaterally, Normal air movement Cardiovascular: Regular rate/rhythm, Normal S1 S2, No murmurs Gastrointestinal: Normal bowel sounds, Soft and benign, Non-distended, No tenderness Musculoskeletal: No clubbing, No swelling, No tenderness Integumentary: No rashes Neurological: Normal speech, Normal tone - Studies Laboratory Data (last 24 hrs) 08/28/19 16:40: APTT 35.8 08/28/19 16:40: PT 13.2 H, INR 1.12 08/28/19 16:40: WBC 9.0, Hgb 7.0 L*, Hct 22.6 L, Plt Count 273 08/28/19 16:40: Sodium 134 L, Potassium 3.4 L, BUN 6 L, Creatinine 0.73, Glucose 177 H, Magnesium 2.2, Total Bilirubin 0.2, AST 17, ALT 18, Alkaline Phosphatase 112 Medications List Reviewed: Yes Assessment & Plan - Problems (Diagnosis) (1) Angiodysplasia of small intestine Current Visit: Yes Status: Acute (2) Anemia of chronic disease Onset Date: 06/23/15 Current Visit: No Status: Acute (3) GIB (gastrointestinal bleeding) Onset Date: 12/02/17 Current Visit: No Status: Acute (4) Near syncope Onset Date: 06/20/15 Current Visit: No Status: Acute (5) Severe anemia Onset Date: 08/13/14 Current Visit: No Status: Acute (6) Hypertension Current Visit: Yes Status: Acute (7) Aortic stenosis Current Visit: Yes Status: Acute - Plan Plan: Continue with current plan care as mentioned below; await GI recommendations later today 1. Continue with IV hydration and PPI drip 2. Monitor H&H closely 3. Continue with pain control 4. NPO; diet per GI recommendations 5. GI consultation 6. Strict blood pressure control 7. GI and DVT prophylaxis - Advance Directives Does patient have a Living Will: No Does patient have a Durable POA for Healthcare: No - Code Status/Comfort Care Code Status: Full Code
[2019-08-29 11:37] LABS: RBC Red Blood Cell Count 3.67 M/uL (3.86-4.86)
[2019-08-29 12:06] LABS: Folic Acid, (Folate) 4.2 ng/mL (3.1-17.5); Thyroid Stimulating Hormone 1.39 uIU/mL (0.360-3.740)
[2019-08-29] MEDS ORDERED: METOCLOPRAMIDE 10 MG/2mL INJ IV SCH (20:00)
[2019-08-29] MEDS ORDERED: GOLYTELY 4000 ML PO SCH (20:00)
[2019-08-29] MEDS ORDERED: MAGNESIUM CITRATE 300 ML BOT PO SCH (20:00)
[2019-08-30] MEDS ORDERED: METOCLOPRAMIDE 10 MG/2mL INJ IV SCH (02:00)
[2019-08-30] MEDS: LEVOTHYROXINE SOD 0.075 MG TAB PO SCH (06:00)
[2019-08-30 06:37] LABS: Absolute Lymphocytes (CBC) 1.1 K/uL (0.7-4.9); Basophils % 0.6 % (0-1.3); Hematocrit 28.2 % (36.0-45.0); Lymphocytes % 13.7 % (15.3-44.8); MPV 7.8 fL (7.6-11.3)
[2019-08-30 06:51] LABS: ALT/SGPT 19 U/L (12-78); AST/SGOT 24 U/L (15-37); Albumin 3.4 g/dL (3.4-5.0); Alkaline Phosphatase 100 U/L (45-117); BUN Blood Urea Nitrogen 2 mg/dL (7-18); Bicarbonate 29 mmol/L (21-32); Bilirubin Total 0.3 mg/dL (0.2-1.0); Glucose Level 136 mg/dL (74-106); Magnesium 2.4 mg/dL (1.8-2.4); Phosphorus 2.2 mg/dL (2.5-4.9); Potassium 3.3 mmol/L (3.5-5.1); Protein, Total 7.2 g/dL (6.4-8.2); Sodium Level 141 mmol/L (136-145)
[2019-08-30 06:59] LABS: Protime INR 1.19
[2019-08-30] MEDS ORDERED: propofoL 200 MG/20 ML VIAL IV ONE ×3 (07:34→09:10)
[2019-08-30] MEDS ORDERED: LIDOCAINE 1% MPF 5 ML VIAL ONE (07:34)
[2019-08-30] MEDS ORDERED: Ringers Lactate 1,000 ML IV ONE (07:54)
[2019-08-30] MEDS ORDERED: CYANOCOBALAMIN 1000MCG/ML INJ IM ONE (08:00)
[2019-08-30] MEDS ORDERED: EPINEPHRINE/PF 1 MG/ML AMP ONE (08:08)
[2019-08-30] MEDS ORDERED: SOD FERRIC GLUC COMPLX/SUCROSE 125 MG in NA CHLORIDE 0.9% 100 ML IV SCH (08:30)
--- NOTE | 2019-08-30 08:44 | ENDO RPT ---
[address], [address] EGD PROCEDURE REPORT EXAM DATE: 08/30/2019 PATIENT NAME: Charlee Johnson MR#: [id number] BIRTHDATE: 1955 ATTENDING: Toby Jean Dr STATUS: inpatient - [facility] OVERSEAMER: Meseret Buckner CST, Najma Hess RN, and Lori Figueroa RN INDICATIONS: The patient is a 64 yr old Female here for an EGD due to upper G.I. bleeding, melenic bleeding, and anemia PROCEDURE PERFORMED: EGD with biopsy MEDICATIONS: Per Anesthesia. TOPICAL ANESTHETIC: none CONSENT: The patient understands the risks and benefits of the procedure and understands that these risks include, but are not limited to: sedation, allergic reaction, infection, perforation and/or bleeding. Alternative means of evaluation and treatment include, among others: physical exam, x-rays, and/or surgical intervention. The patient elects to proceed with this endoscopic procedure. DESCRIPTION OF PROCEDURE: During intra-op preparation period all mechanical medical equipment was checked for proper function. Hand hygiene and appropriate measures for infection prevention was taken. Procedure, possible complications, and alternatives including but not limited to the possibility of bleeding, perforation, tear, infection, sepsis, need for surgery, need for blood transfusion, and anesthesia related complications were explained to the patient. After the risks, benefits and alternatives of the procedure were thoroughly explained, Informed consent was verified, confirmed and timeout was successfully executed by the treatment team. The patient was placed in the left lateral position. The patient was anesthetized with topical anesthesia. Through the anesthetized oropharyngeal area, the scope was passed without any difficulty. The [id number] ([id number]) endoscope was introduced through the mouth and advanced to the third portion of the duodenum. Retroflexed views revealed no abnormalities. The gastroscope was then slowly withdrawn and removed. Moderate gastritis was found in the body of the stomach. Multiple biopsies were obtained and sent to pathology. ADVERSE EVENTS: There were no complications. IMPRESSIONS: 1. Bile reflux in the body of the stomach - suctioned out with endoscope 2. Moderate gastritis in the body of the stomach, s/p biopsies RECOMMENDATIONS: 1. await biopsy results 2. acid suppression therapy REPEAT EXAM: Toby Jean Dr eSigned: Toby Jean Dr 08/30/2019 8:44 AM cc: Xavier Mejias Mohammad CPT CODES: ICD9 CODES: PATIENT NAME: Charlee Johnson MR#: [id number]
[2019-08-30] MEDS ORDERED: FOLIC ACID 1 MG in NA CHLORIDE 0.9% 50 ML IV SCH (09:00)
--- NOTE | 2019-08-30 09:00 | ENDO RPT ---
[address], [address] COLONOSCOPY PROCEDURE REPORT EXAM DATE: 08/30/2019 PATIENT NAME: Charlee Johnson MR #: [id number] BIRTHDATE: 1955 ATTENDING: Toby Jean Dr STATUS: inpatient - [employer] DEVELOPER: Meseret Buckner [employer], Najma Hess RN, and Lori Figueroa RN INDICATIONS: The patient is a 64 yr old Female here for a colonoscopy due to melenic bleeding and anemia PROCEDURE PERFORMED: Colonoscopy MEDICATIONS: Per Anesthesia. ESTIMATED BLOOD LOSS: None CONSENT: The patient understands the risks and benefits of the procedure and understands that these risks include, but are not limited to: sedation, allergic reaction, infection, perforation and/or bleeding. Alternative means of evaluation and treatment include, among others: physical exam, x-rays, and/or surgical intervention. The patient elects to proceed with this endoscopic procedure. DESCRIPTION OF PROCEDURE: During intra-op preparation period all mechanical medical equipment was checked for proper function. Hand hygiene and appropriate measures for infection prevention was taken. Procedure, possible complications, alternatives including, but not limited to possibility of bleeding, perforation, tear, infection, sepsis, need for surgery, need for blood transfusion, were explained to the patient. After the risks, benefits and alternatives of the procedure were thoroughly explained, Informed consent was verified, confirmed and timeout was successfully executed by the treatment team. The patient was placed in the left lateral position. A digital rectal exam was performed and revealed no abnormalities of the rectum. After appropriate level of anesthesia, the scope was passed. The [id number] ([id number]) and [id number] ([id number]) endoscope was introduced through the anus and advanced to the rectum. The quality of the prep was good. The instrument was then slowly withdrawn as the colon was fully examined. Scope withdrawal time was 6 minutes. COLON FINDINGS: There was a benign appearing and severe twist in the proximal rectum - unable to intubate past. Internal hemorrhoids were found. Retroflexion was not performed. The scope was then completely withdrawn from the patient and the procedure terminated. ADVERSE EVENTS: There were no complications. IMPRESSIONS: 1. Severe twist in proximal rectum - unable to intubate past 2. Internal hemorrhoids RECOMMENDATIONS: barium enema RECALL: Toby Jean Dr eSigned: Toby Jean Dr 08/30/2019 9:00 AM cc: Xavier Mejias M.D and Tyrone Benavides M.D. CPT CODES: ICD9 CODES: 560.9 Unspecified intestinal obstruction PATIENT NAME: Charlee Johnosn MR#: [id number]
[2019-08-30] MEDS ORDERED: POTASSIUM PHOS 30 MM in NA CHLORIDE 0.9% 500 ML IV ONE (09:07)
[2019-08-30] MEDS: NA CHLORIDE 0.9% 1,000 ML IV SCH (09:51)
[2019-08-30] MEDS: PANTOPRAZOLE INJ 80 MG in NA CHLORIDE 0.9% 250 ML IV SCH ×2 (09:51→14:31)
[2019-08-30] MEDS: AMLODIPINE 10 MG TAB PO SCH (09:58)
[2019-08-30] MEDS: GABAPENTIN 100 MG CAP PO SCH ×2 (09:58→20:03)
[2019-08-30] MEDS: LOSARTAN/HCTZ 50-12.5 PO SCH (10:00)
[2019-08-30] MEDS: AMITRIPTYLINE 50 MG TAB PO SCH (20:03)
[2019-08-30] MEDS: ATORVASTATIN 20 MG TAB PO SCH (20:03)
--- NOTE | 2019-08-30 21:13 | CON ---
Date of Consultation: 08/30/2019 Reason For Consultation: GI bleed with melena, anemia, hemoglobin down to 7.0. History Of Present Illness: This patient is a 64-year-old white female with history of small bowel a rteriovenous malformation, hypertension, hyperlipidemia, hypothyroidism. [facility] left-sided weakness initially and found to have this anemia. MRI brain to be performed. [facility] st's evaluation for neurologic deficits has been unremarkable. Patient reports blood in her stool. She says she never looked at it in the emergency room. It was noted to be black, and therefore, re ported to be melena. Past Medical History: 1.Significant for small bowel AVMs, on octreotide every month, being treated by a physician in [facility] on half-way with this every month therapy. She says she has had multiple GI bleeds in the past, mike n on the octreotide therapy. 2.Hypertension. 3.Hyperlipidemia. 4.Hypothyroidism. 5.Neuropathy. 6.2 foot surgeries. 7.Syncope. 8.Aortic stenosis. 9.Tubal ligation. 10.Hysterectomy. Medications: Include Elavil, Norvasc, gabapentin, Synthroid, losartan, hydrochlorothiazide, octreoti de, and simvastatin. Allergies: TO ASPIRIN, IBUPROFEN. INTOLERANT TO LACTOSE. Social History: She is x3. Two children. No tobacco, quit in 2005. Alcohol rare. Family History: Father is alive with diabetes, hypertension, coronary artery disease, aortic valve r eplacement, and pacemaker. Mother alive with asthma and allergies. Review of Systems: The patient has left-sided weakness with negative neurologic evaluation so far in hospital with MRI b rain pending and GI bleed with melena. She denies any , coffee-grounds emesis, hematuria, dysuria, polydipsia, hemoptysis, lower extremity edema, muscle aches, joint aches, backaches. She sethi d some mild depression in the past and is on medication, but no chest pain, shortness of breath, seiz ure, syncope. Physical Examination: Vital Signs: She is 5 feet 4 inches, 186 pounds, BMI 32 kg/sq m. She has a temperature of 97.7 degr ees Fahrenheit, pulse 83, respirations 16, blood pressure 155/55, O2 saturation 100%. General: She is obese female, lying in bed, in no acute distress. HEENT: Normocephalic, atraumatic. Anicteric. Pupils equal, round, and reactive to light. Extraocu lar movements are intact. Oropharynx is clear. Neck: Supple. No masses. Respirations: Clear to ausculation bilaterally. Cardiac: Regular rate and rhythm. No gallops. Abdomen: Positive bowel sounds. Soft, nontender, nondistended. No hepatosplenomegaly. Mildly obes e. Extremities: Alert and oriented x3. Grossly nonfocal. 5/5 motor strength. Intact sensation to lig ht touch. Laboratory Data: Patient has a white count of 8.3, hemoglobin of 9.6, hematocrit 28.2, MCV of 78, pl atelet count of 263, polys of 78% down from 88% yesterday, lymphocytes 14%, monocytes 6%, eosinophils 1%. PT of 14.0, INR of 1.2, PTT of 36.0. Patient has a sodium 141, potassium 3.3, chloride of 104, bicarb 29, BUN of 2, creatinine 0.6, glucose 136, calcium 8.2, phosphorus 2.2, magnesium 2.4, iron o f 26, total bilirubin 0.3, AST of 24, ALT of 19, alkaline phosphatase . Troponin I less th an 0.02. B-type natriuretic peptide of 198. Total protein 7.4, albumin 3.4, globulin 3.8. Vitamin B12 339. Folate of 4.2. TSH of 1.39, free T4 0.91. UA was negative. Imaging: Head CT on was negative. MRI brain is pending. Chest x-ray on the was negative. Impression: 1.Gastrointestinal bleed with melena and black stool noted in the emergency room with hemoglobin kaila n to 7.0. Hemoglobin ran up to 9.6 after transfusion. We need to investigate with EGD and possibly colonoscopy. The patient agrees to do both. 2.History of small bowel arteriovenous malformations with multiple bleeds in the past on subcu octre otide every month. This patient has had small bowel enteroscopy in past with ablation of small bowel arteriovenous malformations and may need it again. 3.Hypertension. 4.Hyperlipidemia. 5.Hypothyroid. 6.Neuropathy. 7.Syncope. 8.Aortic stenosis. 9.2 foot surgeries. 10.Tubal ligation. 11.Hysterectomy. Recommendation: 1.EGD, colonoscopy. 2.Serial H and H and transfuse p.r.n. 3.IV PPI changed to q.12 dosing if EGD does not reveal peptic ulcer disease or severe inflammation. 4.N.p.o. except for colon prep. 5.Consider repeat small bowel endoscopy at tertiary center for possible recurrent small bowel AVMs w ith bleeding as indicated. ANGIE/ASMITA Voice ID: [id number] Report ID: [id number]
--- NOTE | 2019-08-30 23:19 | CON ---
Date of Consultation: 08/30/2019 Reason: Left-sided weakness. History: A 64-year-old lady we had seen once in the clinic within the last month or 2. It is a similar symptom complex. She is a rather complicated patient. She has been having recurring episodes of transient left-sided weakness and shaking to the left arm and leg somewhat suggestive of limb shaking TIA. She cannot take any antiplatelet agents because she has angiodysplasia of the small intestine by history and chronic anemia, came to the emergency department at the [facility] in [place] because she was having clumsiness and generalized weakness. Hemoglobin was 7 in the ER, so she was admitted. She has had a transfusion. She has had an endoscopy and partial colonoscopy. She is not having any recurrent left-sided symptoms, has a history of aortic stenosis per the chart. Normally gets octreotide to help control the bleeding with intermittent left-sided weakness and shaking TIA symptoms that bring us back into her case as they were present on admission, but as noted better now and best everyone can determine, the patient has been told she should be on any type of antiplatelet agent, so if the problem is indeed vascular ischemia becomes quite a bit more complicated very quickly. Consultation was requested. Past Medical History: Angiodysplasia as noted, hypertension, hyperlipidemia, neuropathy, hypothyroidism, anemia, history of aortic stenosis. Family History: Heart disease, hypertension. Social History: No longer smokes, drinks. Generally independent on basic activities of daily living. Allergies: ASPIRIN, IBUPROFEN, LACTULOSE. Routine Medications: Octreotide, losartan, hydrochlorothiazide, Norvasc, amitriptyline, simvastatin 40, Synthroid, gabapentin, Protonix, folic acid, B12, ferrous gluconate. Physical Examination: Vital Signs: 98.4, 84, 17, 168/56. She is saturating 100%. General: She is a pleasant lady, sitting in bed, in no distress. Awake, alert, oriented to time, person, place, situation. Heart: Sinus rhythm with 2/6 systolic ejection murmur that radiated to the bilateral carotids consistent with history of aortic stenosis. Lungs: Clear. Abdomen: Soft. Bowel sounds present. Neurologic: Oriented x3. Pupils reactive. Ocular motion full without nystagmus. Visual carrasco full to confrontation bilaterally. Facial strength and sensation are normal. Tongue protrudes evenly. Soft palate elevates symmetrically bilaterally. Extremity strength is full. Sensation decreased to vibration distally. Reflexes are quite well preserved given her history of neuropathy to slightly brisk 2+. Toes are downgoing. Cerebellar exam demonstrates no ataxia. Pertinent Laboratory Data: Chest x-ray was clear. EKG was sinus rhythm with S- and T-wave abnormalities. CT scan of the brain was unremarkable. Hemoglobin was 7 on admission, up to 9.6; white count 8.3; platelets 263; retic is 2.08. Creatinine is normal at 0.56. Iron level is low at 26. B12 339. Folate 4.2. TSH 1.3. Impression: Possible transient ischemic attack. The limb shaking does additionally raise the possibility of seizure, but patient is awake and alert during the entire event. Plan: We will get a brain MRI and a carotid Doppler. She is supposed to have a barium enema tomorrow as well, so I think that is probably all the studies we will be able to accomplish in 1 day. If those are unremarkable, we will consider outpatient EEG. If there is no evidence of ischemia, then that will be very reassuring, but I think given her past medical history, there is likely to be some type of ischemic change and that makes the question of long-term antiplatelet agent something that we will need to review with GI. Thank you for the consult. We will continue to follow with you. WILLIE Voice ID: [id number] Report ID: [id number] GORGE
[2019-08-31] MEDS: NA CHLORIDE 0.9% 1,000 ML IV SCH ×3 (00:01→14:14)
[2019-08-31] MEDS: PANTOPRAZOLE INJ 80 MG in NA CHLORIDE 0.9% 250 ML IV SCH ×3 (00:01→14:14)
[2019-08-31] MEDS: LEVOTHYROXINE SOD 0.075 MG TAB PO SCH (06:01)
[2019-08-31] MEDS: LOSARTAN/HCTZ 50-12.5 PO SCH (07:40)
[2019-08-31] MEDS: GABAPENTIN 100 MG CAP PO SCH ×2 (07:40→21:17)
[2019-08-31] MEDS: AMLODIPINE 10 MG TAB PO SCH (07:41)
--- NOTE | 2019-08-31 09:17 | P.PN ---
Subjective Date of Service: 08/30/19 Patient is doing well with no new complaints. Still complaining of some left- sided weakness. Will Consult to Neurology and colon barium enema. If these are unremarkable then anticipate discharge home. Review of Systems 10-point ROS is otherwise unremarkable Physical Examination - Vital Signs Temperature: 99 F Blood Pressure: 147/68 Pulse: 85 Respirations: 18 Pulse Ox (%): 96 - Physical Exam General: Alert, In no apparent distress, Oriented x3 Respiratory: Clear to auscultation bilaterally, Normal air movement Cardiovascular: Regular rate/rhythm, Normal S1 S2, No murmurs Gastrointestinal: Normal bowel sounds, Soft and benign, Non-distended, No tenderness Musculoskeletal: No tenderness Neurological: Normal tone, Sensation intact, Cranial nerves 3-12 intact, Normal affect - Studies Medications List Reviewed: Yes Assessment & Plan - Problems (Diagnosis) (1) Angiodysplasia of small intestine Current Visit: Yes Status: Acute (2) Anemia of chronic disease Onset Date: 06/23/15 Current Visit: No Status: Acute (3) GIB (gastrointestinal bleeding) Onset Date: 12/02/17 Current Visit: No Status: Acute (4) Near syncope Onset Date: 06/20/15 Current Visit: No Status: Acute (5) Severe anemia Onset Date: 08/13/14 Current Visit: No Status: Acute (6) Hypertension Current Visit: Yes Status: Acute (7) Aortic stenosis Current Visit: Yes Status: Acute (8) Left-sided weakness Current Visit: Yes Status: Acute - Plan Plan: Continue with current plan care as mentioned below; await GI recommendations later today 1. Continue with IV hydration and PPI drip 2. Monitor H&H closely 3. Continue with pain control 4. EGD and colonoscopy were completed. The EGD with gastritis and colonoscopy had to be terminated because could not get past the rectum. Colon barium enema in the morning 5. GI consultation appreciated; neurology consultation pending 6. Strict blood pressure control 7. GI and DVT prophylaxis Discharge Plan: Home - Advance Directives Does patient have a Living Will: No Does patient have a Durable POA for Healthcare: No - Code Status/Comfort Care Code Status: Full Code
--- NOTE | 2019-08-31 12:31 | RAD REPORT ---
EXAM DESCRIPTION: RAD - Colon Barium Enema - 08/31/2019 11:17 am CLINICAL HISTORY: GI bleed / incomplete colonoscopy COMPARISON: Abdomen Exam Limited dated 03/02/2017 TECHNIQUE: A single column barium enema examination was performed. FINDINGS: The flow manager film shows a nonspecific bowel gas pattern. No significant or suspicious findin gs noted on the preliminary imaging. Barium filled the entire colon. No reflux into the terminal ileum observed. The appendix was visualiz ed. Sigmoid colon was mildly tortuous and redundant. Colon was redundant and tortuous at the splenic and hepatic flexures. No diffuse mucosal process identifiable. No fixed filling defect or persistent area of narrowing. Fluoro time was 4.4 minutes. There or 11 overhead KUB images obtained along with 24 spot images. IMPRESSION: No fixed filling defect or persistent area of narrowing identified. No mass, diffuse muc osal process or other worrisome finding. Tortuous and redundant colon is present.
--- NOTE | 2019-08-31 14:02 | RAD REPORT ---
EXAM DESCRIPTION: MRI - Brain W/Wo Cont - 08/31/2019 12:56 pm CLINICAL HISTORY: TIA COMPARISON: No comparisons TECHNIQUE: Sagittal and axial T1-weighted images were obtained. Axial PD/heavily T2-weighted and T2- FLAIR images were obtained along with axial DWI/ADC mapping sequences. Coronal heavily T2 weighted s equence obtained. Axial and coronal post-contrast T1-weighted images were also obtained. A 18 ml Mul tihance contrast following utilized. FINDINGS: No intracranial hemorrhage, mass or acute infarction. There is no edema or shift of midli ne structures. No extra-axial fluid collections. Chew-matter/white matter junction is preserved. Sig nal voids are seen as a normal finding in the major intracranial vessels. No measurable atrophy or ch ronic ischemic changes identifiable. Ventricles are normal. No globe or orbital content abnormality s een. Post-contrast images show normal enhancement. No dural thickening. Mastoid air cells and paranasal sinuses are clear. IMPRESSION: Negative contrast enhanced MRI of the Brain.
--- NOTE | 2019-08-31 14:10 | RAD REPORT ---
EXAM DESCRIPTION: US - CP - 08/31/2019 1:20 pm CLINICAL HISTORY: ? tia Headache, drowsiness, TIA COMPARISON: MRA Neck W/Wo Cont dated 08/31/2019 TECHNIQUE: Real-time sonographic evaluation of both carotid systems was performed. Doppler interroga tion was performed with waveform tracing bilaterally. FINDINGS: Normal high resistance waveforms are noted in both external carotid arteries. The common c arotid arteries and internal carotid arteries show normal low resistance waveforms. Moderate hard plaquing is seen in both proximal internal carotid arteries. Based on NASCET criteria, proximal right ICA stenosis is present estimated at 50-70%. Stenosis resulting from hard plaque of th e proximal left internal carotid artery also present estimated at 50-70%. Peak systolic velocity on t he left distal to the stenosis measures 260 cm/second. Antegrade flow seen in both vertebral arteries. IMPRESSION: Moderate hard plaquing is seen in both proximal internal carotid arteries. 50-70% stenosis is involving both proximal internal carotid arteries, more severe on the left where t here is elevated peak systolic velocity of 260 cm/second noted.
--- NOTE | 2019-08-31 14:10 | RAD REPORT ---
EXAM DESCRIPTION: MRI - MRA Head Wo Cont - 08/31/2019 12:56 pm CLINICAL HISTORY: TIA COMPARISON: MRI brain same date TECHNIQUE: Axial and coronal 3D [id number] image acquisition was performed. 3D rotational images were generated with source and reconstruction images reviewed. Horizontal and vertical axis rotation al views generated using MIP protocol. FINDINGS: Distal left vertebral artery is very small. There is a very small communication to the bas ilar artery. The left vertebral artery essentially terminates at the posterior inferior cerebellar ar jazmyn as a normal variant. Distal right vertebral artery in the basilar artery are mildly tortuous but otherwise unremarkable. Right posterior cerebral artery is unremarkable. Left posterior cerebral art eries also without significant finding. The P1 segment is absent. The patient has a large posterior c ommunicating artery supplying this circulation. Right middle cerebral artery shows long segment narrowing of a P2 branch. Remaining right middle cere bral artery branches show no significant finding. No significant left MCA branch abnormality. The left anterior cerebral artery A1 segment is absent or small. This is probably normal variant rath er than atherosclerotic stenosis. Anterior communicating artery is present. Anterior cerebral arterie s show no significant disease. Bilateral internal carotid arteries show no significant stenosis or dissection. Right internal caroti d artery is smaller than the left. IMPRESSION: Atherosclerotic changes are seen with narrowing of a right middle cerebral artery M2 bra nch. No other significant disease identifiable. Anatomic normal variants are detailed in the body of the r eport.
--- NOTE | 2019-08-31 15:23 | P.PN ---
Subjective Date of Service: 08/31/19 Chief Complaint: GI bleeding, left hemiparesis Subjective: New changes (No further GI bleeding. Barium enema was negative. EGD revealed moderate gastritits. But MRA revealed significant right middle cerebral artery narrowing; neurology notes Plavix needed. But patient likely has recurrent small bowel AVMs bleeding.) Review of Systems 10-point ROS is otherwise unremarkable General: Weakness (Improved.) Physical Examination - Vital Signs Temperature: 98.6 F Blood Pressure: 151/62 Pulse: 92 Respirations: 18 Pulse Ox (%): 98 - Physical Exam General: Alert, In no apparent distress, Oriented x3, Cooperative HEENT: Atraumatic, Normocephalic, PERRLA, EOMI Neck: Supple Respiratory: Normal air movement Cardiovascular: Normal pulses Gastrointestinal: Soft and benign, No tenderness, No rebound, No guarding Neurological: Normal speech - Studies Medications List Reviewed: Yes Assessment And Plan - Current Problems (Diagnosis) (1) Gastritis Current Visit: Yes Status: Acute (2) Abnormal MRA, brain Current Visit: Yes Status: Acute (3) Angiodysplasia of small intestine Current Visit: Yes Status: Acute (4) GIB (gastrointestinal bleeding) Onset Date: 12/02/17 Current Visit: No Status: Acute Comment: Melena noted in ER on admission - Plan REC: 1) decrease Protonix from IV drip to q24 hour dosing 2) higher level of care: enteroscopy with ablation of small bowel AVMs, not available here, before starting Plavix 3) serial H&Hs and transfuse prn
--- NOTE | 2019-08-31 17:34 | P.PN ---
Subjective Date of Service: 08/31/19 Chief Complaint: GI bleeding, left hemiparesis Subjective: Other (Patient doing well at this time. No melena or rectal bleeding.) Physical Examination - Vital Signs Temperature: 98.8 F Blood Pressure: 147/82 Pulse: 87 Respirations: 18 Pulse Ox (%): 98 - Physical Exam General: Alert, In no apparent distress, Oriented x3, Cooperative HEENT: Atraumatic Neck: Supple Respiratory: Clear to auscultation bilaterally, Normal air movement Cardiovascular: Normal pulses, Regular rate/rhythm Gastrointestinal: Normal bowel sounds, Soft and benign, Non-distended, No tenderness, No masses, No rebound, No guarding Neurological: Normal speech, Normal strength at 5/5 x4 extr, Normal tone, Normal affect - Studies Medications List Reviewed: Yes Assessment & Plan Discharge Plan: Transfer Plan to discharge in: 24 Hours Physician Review Additional Text: Impression: Left-sided weakness and ataxia likely secondary to TIA with MRI brain negative but MRA showing right middle cerebral artery narrowing and carotid doppler showing 50-70% stenosis involving both proximal internal carotid arteries left greater than right Acute GI bleed status post EGD showing gastritis, colonoscopy very torturous confirmed with barium with history of small bowel angiodysplasias with prior ablation in 2014 Hypertension Hypothyroidism Hyperlipidemia Plan: Case discussed at length with GI and Neurology. From a neurology perspective patient has significant disease and likely had TIA. Patient requires anti- platelet therapy. From a GI perspective no bleeding found from EGD and colonoscopy/barium enema. Patient with history of small bowel angiodysplasias with prior ablation in 2014. Patient requires further evaluation and enteroscopy, before patient can be sent home with Plavix. Patient has received 2 units of packed red blood cells. Hemoglobin appears stable at this time. GI and Neurology recommend transfer to high-level center to further evaluate and treat. Will discuss further with transfer center. Awaiting transfer approval. Time Spent Managing Pts Care (In Minutes): 55
--- NOTE | 2019-08-31 20:02 | RAD REPORT ---
EXAM DESCRIPTION: MRI - MRA Neck W/Wo Cont - 08/31/2019 12:56 pm CLINICAL HISTORY: TIA, left-sided weakness COMPARISON: Carotid ultrasound same date, MRI brain same date TECHNIQUE: MR angiography of the cervical vasculature performed. Coronal imaging plane acquisition u tilized. A 18 MultiHance contrast volume was utilized. Coronal reformatted images were generated and reviewed. Vertical axis 3D rotational projections obtained using maximum intensity projection protoco l. FINDINGS: Aortic arch is 3 vessel configuration. The left common carotid and left subclavian artery origins are not grossly abnormal. The patient may have mild narrowing at the origin of the left commo n carotid artery. The innominate artery is very strictured or narrowed between origin and the bifurca tion into the common carotid and subclavian arteries. There is approximately 40% narrowing at the ginger gin of the subclavian artery. There is no motion artifact or other technical finding evident to expla in the apparent stenosis of the innominate artery. The bilateral common carotid arteries show no significant findings. The right common carotid artery i s smaller than the left which may support the true high-grade stenosis of the innominate artery. Ther e is 50-60% narrowing at the origin of the left internal carotid artery and 50% narrowing of the righ t internal carotid artery at the bulb. More distally the internal carotid arteries show no significan t findings. The right internal carotid artery is smaller than the left. No vertebral artery origins stenoses. The co-dominant vertebral arteries show no suspicious findings. IMPRESSION: 1. 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 No technical or motion etiology identifiable to indicate that this is not a true finding. 2. Additional confirmation of the innominate stenosis is needed, CT angio thoracic aorta and neck cou ld be performed to visualize the aortic arch, great vessels and the carotid vasculature. 3. Clinically significant narrowing seen near the base of the left carotid bulb and in the midportion of the right carotid bulb.
[2019-08-31] MEDS: AMITRIPTYLINE 50 MG TAB PO SCH (21:17)
[2019-08-31] MEDS: ATORVASTATIN 20 MG TAB PO SCH (21:17)
[2019-09-01] MEDS: LEVOTHYROXINE SOD 0.075 MG TAB PO SCH (05:30)
[2019-09-01 06:35] LABS: BUN Blood Urea Nitrogen 2 mg/dL (7-18); Bicarbonate 27 mmol/L (21-32); Glucose Level 126 mg/dL (74-106); HDL Cholesterol 35 mg/dL (40-60); LDL Cholesterol, Calculated 54 (<130); Magnesium 2.3 mg/dL (1.8-2.4); Potassium 3.1 mmol/L (3.5-5.1); Sodium Level 139 mmol/L (136-145)
[2019-09-01 06:38] LABS: Basophils % 0.8 % (0-1.3); Lymphocytes % 12.8 % (15.3-44.8); MPV 7.7 fL (7.6-11.3); RBC Red Blood Cell Count 3.58 M/uL (3.86-4.86)
[2019-09-01] MEDS: PANTOPRAZOLE 40MG TABLET PO SCH (08:30)
[2019-09-01] MEDS: LOSARTAN/HCTZ 50-12.5 PO SCH (08:30)
[2019-09-01] MEDS: AMLODIPINE 10 MG TAB PO SCH (08:31)
[2019-09-01] MEDS: GABAPENTIN 100 MG CAP PO SCH ×2 (08:31→20:09)
[2019-09-01 11:13] LABS: Anisocytosis 1+; Blood Morphology Comment NOTED (NOT SEEN); Hypochromasia 1+; Platelet Estimate ADEQ; Polychromasia 1+; Urine White Blood Cell Casts OK
--- NOTE | 2019-09-01 13:03 | PN ---
Date of Progress Note: 08/31/2019 Reason: Transient ischemic attack like episode. Interval History: The patient's brain MRI was reassuring in that there was not a significant amount of ischemia. Carotid Doppler, bilateral carotid stenosis 50-70%, more prominent on the left. MRA br ain demonstrated right MCA narrowing, studies suggestive that the patient should be on some type of a nti-platelet agent and be treated medically. I do recommend an EEG, but she can either have that per formed at a later data or can be done over the weekend here. Plan is to have her transferred up to [facility] to try and address the GI bleeding to see if she can be treated medically for the T IA like symptoms that she is having, whether that be from intracranial atherosclerosis or just the se verity of the anemia proper. Physical Examination: She is awake, alert, oriented. Pupils reactive. Ocular motion full. Visual carrasco full. Facial st rength and sensation normal. Tongue protrudes evenly. Soft palate elevates symmetrically bilaterall y. Extremity strength full. Sensation intact. Reflexes symmetric, slightly brisk. She is ambulato ry. Gait is normal. Impression: Probable limb shaking transient ischemic attack. Plan: She is already on a statin. We will check lipids in the morning. She cannot at this juncture safely be placed on anti-platelet therapy, so that she is going to be transferred to the [facility] to see if the recurrent GI bleeding could be addressed. If she continues to have episodes despit e medical management, EEG certainly be indicated or may just this will be indicated as part of the ov erall workup, just cannot be done at this institution on the weekend. Thank you for the consult. BERENICE/ASMITA Voice ID: [id number] Report ID: [id number]
--- NOTE | 2019-09-01 15:51 | P.PN ---
Subjective Date of Service: 09/01/19 Chief Complaint: GI bleeding, left hemiparesis Subjective: No new changes, Improving Review of Systems General: Unremarkable Eyes: Unremarkable ENT: Unremarkable Respiratory: Unremarkable Cardiovascular: Unremarkable Gastrointestinal: As per HPI Genitourinary: Unremarkable Musculoskeletal: Unremarkable Integumentary: Unremarkable Neurological: Unremarkable Lymphatics: Unremarkable Physical Examination - Vital Signs Temperature: 98.7 F Blood Pressure: 139/63 Pulse: 80 Respirations: 16 Pulse Ox (%): 97 - Physical Exam General: Alert, In no apparent distress, Oriented x3 HEENT: Atraumatic, Normocephalic Neck: Supple Respiratory: Clear to auscultation bilaterally, Normal air movement Cardiovascular: Normal S1 S2 Capillary refill: <2 Seconds Gastrointestinal: Normal bowel sounds, Soft and benign Musculoskeletal: No erythema, No tenderness Integumentary: No erythema Neurological: Normal gait, Normal speech, Normal affect - Studies Medications List Reviewed: Yes Assessment & Plan Discharge Plan: Transfer Plan to discharge in: 24 Hours - Code Status/Comfort Care Code Status Assessed: No Physician Review Additional Text: Impression: Left-sided weakness and ataxia likely secondary to TIA with MRI brain negative but MRA showing right middle cerebral artery narrowing and carotid doppler showing 50-70% stenosis involving both proximal internal carotid arteries left greater than right Acute GI bleed status post EGD showing gastritis, colonoscopy very torturous confirmed with barium with history of small bowel angiodysplasias with prior ablation in 2014 Hypertension Hypothyroidism Hyperlipidemia Plan: Case discussed at length with GI and Neurology. From a neurology perspective patient has significant disease and likely had TIA. Patient requires anti- platelet therapy. From a GI perspective no bleeding found from EGD and colonoscopy/barium enema. Patient with history of small bowel angiodysplasias with prior ablation in 2014. Patient requires further evaluation and enteroscopy before patient can be sent home with Plavix. Patient has received 2 units of packed red blood cells. Hemoglobin appears stable at this time. GI and Neurology recommend transfer to high-level center to further evaluate and treat. The patient has been accepted to see [facility] and transfer scheduled for this tomorrow. Critical Care: No Time Spent Managing Pts Care (In Minutes): 55
[2019-09-01] MEDS: ATORVASTATIN 20 MG TAB PO SCH (20:10)
[2019-09-01] MEDS: AMITRIPTYLINE 50 MG TAB PO SCH (20:10)
[2019-09-02] MEDS: LEVOTHYROXINE SOD 0.075 MG TAB PO SCH (06:08)
[2019-09-02 06:10] LABS: BUN Blood Urea Nitrogen 1 mg/dL (7-18); Bicarbonate 28 mmol/L (21-32); Glucose Level 135 mg/dL (74-106); Magnesium 2.3 mg/dL (1.8-2.4); Sodium Level 138 mmol/L (136-145)
[2019-09-02 06:27] LABS: Absolute Lymphocytes (CBC) 0.9 K/uL (0.7-4.9); Hematocrit 28.1 % (36.0-45.0); Lymphocytes % 13.2 % (15.3-44.8); MPV 7.6 fL (7.6-11.3)
[2019-09-02] MEDS: AMLODIPINE 10 MG TAB PO SCH (09:00)
[2019-09-02] MEDS: LOSARTAN/HCTZ 50-12.5 PO SCH (09:19)
[2019-09-02] MEDS: GABAPENTIN 100 MG CAP PO SCH (09:20)
[2019-09-02] MEDS: PANTOPRAZOLE 40MG TABLET PO SCH (09:21)
[2019-09-02] MEDS: KCL 20 MEQ/100 mL IVPB 20 MEQ/100 ML BAG IV SCH ×2 (09:33→10:00)
[2019-09-02] MEDS ORDERED: NA CHLORIDE 0.9% 250 ML ONE (09:39)
[2019-09-02 10:20] VITALS: O2SAT 98
[2019-09-02 10:28] VITALS: TEMP 98
[2019-09-02 12:16] VITALS: BP 142/64
[2019-09-02] MEDS ORDERED: POTASSIUM CL SA 10 MEQ TAB PO ONE (14:00)
--- NOTE | 2019-09-03 02:03 | P.DS ---
Discharge Date: 09/02/19 Disposition: TRANSFER TO [facility] Discharge Condition: GOOD Reason for Admission: GI bleeding, left hemiparesis - Problems (1) Angiodysplasia of small intestine Status: Acute (2) Anemia of chronic disease Onset Date: 06/23/15 Status: Acute (3) GIB (gastrointestinal bleeding) Onset Date: 12/02/17 Status: Acute (4) Near syncope Onset Date: 06/20/15 Status: Acute (5) Severe anemia Onset Date: 08/13/14 Status: Acute (6) Hypertension Status: Acute (7) Aortic stenosis Status: Acute (8) Left-sided weakness Status: Acute Brief History of Present Illness: Patient is a 64-year-old female with a history of angiodysplasia of the small intestine who presents to the hospital with severe anemia. Patient's hemoglobin came back at 7.0. Patient will need a blood transfusion. Patient follows up with local gastroenterology & gets octreotide injections monthly. Patient came into the hospital for further evaluation. Hospital Course: Patient's MRI of the brain revealed a 70% stenosis in the M2 branch of the middle cerebral artery. Patient has severe anemia on arrival. Patient has a history of angiodysplasia of the small intestine. Patient will need enteroscopy. This will be done to cauterize the angiodysplastic lesions. At this time, patient is stable for discharge with outpatient follow-up. Vital Signs/Physical Exam: Temp Pulse Resp BP Pulse Ox 98.0 F 74 15 142/64 H 98 09/02/19 12:00 09/02/19 12:00 09/02/19 12:00 09/02/19 12:00 09/02/19 12:00 General: Alert, In no apparent distress, Oriented x3 Laboratory Data at Discharge: WBC 6.9 K/uL (4.3-10.9) 09/02/19 05:10 Hgb 8.9 g/dL (12.0-15.0) L 09/02/19 05:10 Hct 28.1 % (36.0-45.0) L 09/02/19 05:10 Plt Count 251 K/uL (152-406) 09/02/19 05:10 PT 14.0 SECONDS (9.5-12.5) H 08/30/19 06:22 INR 1.19 08/30/19 06:22 APTT 36.0 SECONDS (24.3-36.9) 08/30/19 06:22 Sodium 138 mmol/L (136-145) 09/02/19 05:10 Potassium 3.0 mmol/L (3.5-5.1) L 09/02/19 05:10 BUN 1 mg/dL (7-18) L 09/02/19 05:10 Creatinine 0.54 mg/dL (0.55-1.3) L 09/02/19 05:10 Glucose 135 mg/dL (74-106) H 09/02/19 05:10 Phosphorus 2.2 mg/dL (2.5-4.9) L 08/30/19 06:22 Magnesium 2.3 mg/dL (1.8-2.4) 09/02/19 05:10 Total Bilirubin 0.3 mg/dL (0.2-1.0) 08/30/19 06:22 AST 24 U/L (15-37) 08/30/19 06:22 ALT 19 U/L (12-78) 08/30/19 06:22 Alkaline Phosphatase 100 U/L (45-117) 08/30/19 06:22 Triglycerides 108 mg/dL (<150) 09/01/19 05:13 Cholesterol 111 mg/dL (<200) 09/01/19 05:13 HDL Cholesterol 35 mg/dL (40-60) L 09/01/19 05:13 Cholesterol/HDL Ratio 3.17 09/01/19 05:13 Home Medications: Amitriptyline [Elavil*] 100 mg PO BEDTIME 08/29/19 Amlodipine [Norvasc*] 10 mg PO DAILY 08/29/19 Gabapentin [Neurontin*] 300 mg PO BID 08/29/19 Levothyroxine [Synthroid*] 75 mcg PO [id number] 08/29/19 Losartan/Hydrochlorothiazide [Losartan-Hctz 100-25 mg Tab] 1 tab PO DAILY 08/29/19 Octreotide [Sandostatin*] 30 mg IM DIRECTED 08/29/19 Simvastatin 40 mg PO DAILY 08/29/19 Cyanocobalamin (Vitamin B-12) [Vitamin B12] 5,000 mcg SL DAILY #30 tab.rapdis 08/30/19 Ferrous Gluconate [Ferate] 240 mg PO BID #60 tablet 08/30/19 Folic Acid 1 mg PO DAILY #30 tablet 08/30/19 Pantoprazole [Protonix Tab] 40 mg PO DAILY #30 tab 08/30/19 New Medications: Ferrous Gluconate [Ferate] 240 mg PO BID #60 tablet Folic Acid 1 mg PO DAILY #30 tablet Pantoprazole [Protonix Tab] 40 mg PO DAILY #30 tab Cyanocobalamin (Vitamin B-12) [Vitamin B12] 5,000 mcg SL DAILY #30 tab.huandis Patient Discharge Instructions: OK TO TRANSFER to [facility]. FOLLOW-UP WITH PRIMARY CARE PROVIDER IN 1-2 WEEKS. FOLLOW-UP WITH GI and NEUROLOGY. CALL or TEXT DR. MARTE AT [phone] IF ANY QUESTIONS REGARDING HOSPITALIZATION. PLEASE CALL THE FLOOR AT [phone] IF ANY MEDICATION OR NURSING QUESTIONS. Diet: NPO Activity: Fall precautions Time spent managing pt's care (in minutes): 20
== END 2019-09-02 15:55 | disposition short-term general hospital (02) | DRG 378 ==
LOC: ER 15:57 → ERHOLD 19:20 → 4TH 08-29 07:24 → 2ND 08-31 22:05
PROVIDERS: ADMIT Hospitalist; ATTEND Hospitalist
PROC: 30233N1 Transfusion of Nonautologous Red Blood Cells into Peripheral Vein, Percutaneous Approach (ICD-10-PCS; 2019-08-30)
PROC: 0DB68ZX Excision of Stomach, Via Natural or Artificial Opening Endoscopic, Diagnostic (ICD-10-PCS; principal; 2019-08-30 08:00)
PROC: 0DJD8ZZ Inspection of Lower Intestinal Tract, Via Natural or Artificial Opening Endoscopic (ICD-10-PCS; 2019-08-30 08:00)
DX: K29.71 Gastritis, unspecified, with bleeding (principal); G45.9 Transient cerebral ischemic attack, unspecified; K55.21 Angiodysplasia of colon with hemorrhage; Z88.8 Allergy status to other drugs, medicaments and biological substances; K64.8 Other hemorrhoids; Z79.890 Hormone replacement therapy; Z79.899 Other long term (current) drug therapy; E78.5 Hyperlipidemia, unspecified; I10 Essential (primary) hypertension; E03.9 Hypothyroidism, unspecified; Z90.710 Acquired absence of both cervix and uterus; Z98.51 Tubal ligation status; Z87.891 Personal history of nicotine dependence; D63.8 Anemia in other chronic diseases classified elsewhere; I35.0 Nonrheumatic aortic (valve) stenosis; K21.9 Gastro-esophageal reflux disease without esophagitis; Z20.828 Contact with and (suspected) exposure to other viral communicable diseases; I66.9 Occlusion and stenosis of unspecified cerebral artery; E66.9 Obesity, unspecified; Z68.32 Body mass index [BMI] 32.0-32.9, adult; G62.9 Polyneuropathy, unspecified
CPT/HCPCS: 36415; 70450; 70544; 70549; 70553; 71045; 74270; 80048; 80053; 80061; 80076; 81003; 82272; 82607; 82746; 83540; 83735; 83880; 84100; 84439; 84443; 84484; 85014; 85018; 85025; 85044; 85610; 85730; 86850; 86900; 86901; 88305; 88312; 93005; 93880; 99285; A9577; C9113; J0171; J1200; J1720; J2405; J2704; J2765; J2916; J2930; J3420; J7030; J7040; J7120; P9016; U0002